=== PATIENT | female | born 1970 | race American Indian/Alaskan Native ===

== ENCOUNTER 2021-04-04 17:40 | Inpatient (IN) | payer OTHER ==
[2021-04-04] MEDS ORDERED: ALBUTEROL 2.5 MG/3 ML NEBU IH ONE ×2 (17:45→17:50)
[2021-04-04] MEDS ORDERED: IPRATROPIUM 0.02% NEBU 2.5 ML IH ONE ×2 (17:45→17:51)
--- NOTE | 2021-04-04 18:03 | Emergency Department Report ---
HPI - General Time Seen by Provider: 04/04/21 17:47 - HPI HPI: 50-year-old -[place] female presents to the emergency department via EMS from home with a complaint of a 2-day history of progressively worsening shortness of breath. She has a history of asthma, COPD (oxygen dependent), and hypertension. EMS found the patient to have a oxygen saturation of about 40%. She was placed on CPAP, given 10 mg of albuterol, 125 mg of Solu-Medrol, 2 g of magnesium, and an IM dose of epinephrine and her oxygen saturation came up to about 70%. Supposedly the patient has either 1 or 2 shots towards her COVID-19 vaccination. There are 2 people in her home at this time that are currently positive with COVID-19 infection. The patient is currently a poor historian secondary to her respiratory status and current condition. ED Past Medical Hx - Medications Home Medications: Home Medications Medication Instructions Recorded Confirmed Last Taken Type Tiotropium [Spiriva] 2 puff INHALATION DAILY 04/05/21 04/05/21 Unknown History predniSONE [Deltasone] 20 mg PO QDAY PRN 04/05/21 04/05/21 Unknown History ED Review of Systems ROS: Stated complaint: OTILIA Other details as noted in HPI Comment: Unobtainable due to pts medical conditions Respiratory: shortness of breath Physical Exam - Physical Exam Vital Signs: Vital Signs 04/04/21 17:58 Temperature 99.1 F Pulse Rate 136 H Respiratory 40 H Rate Blood Pressure 181/108 [Right] O2 Sat by Pulse 96 Oximetry Physical Exam: GENERAL: The patient is ill-appearing. HENT: Normocephalic. Atraumatic. Patient has moist mucous membranes. EYES: Pupils equal reactive to light bilaterally. NECK: Supple. Trachea is midline. CHEST/LUNGS: Coarse breath sounds throughout the chest. There is tachypnea, accessory muscle use, conversational dyspnea. There is respiratory distress noted. HEART/CARDIOVASCULAR: Regular. There is moderate tachycardia. There is no murmur. ABDOMEN: Abdomen is soft, nontender. Patient has normal bowel sounds. Morbidly obese habitus. SKIN: Skin is warm and dry. NEURO: The patient is very sleepy. She is arousable but goes right back to sleep if not continuously stimulated. MUSCULOSKELETAL: There is no tenderness or deformity. There is no limitation range of motion. ED Course Vital Signs 04/04/21 17:58 Temperature 99.1 F Pulse Rate 136 H Respiratory 40 H Rate Blood Pressure 181/108 [Right] O2 Sat by Pulse 96 Oximetry ED Medical Decision Making - Lab Data Result diagrams: 04/05/21 05:01 04/05/21 05:01 Lab Results 04/04/21 04/04/21 04/04/21 Range/Units 17:53 17:53 17:53 WBC 11.8 H (4.5-11.0) K/mm3 RBC 4.58 (3.65-5.03) M/mm3 Hgb 13.1 (10.1-14.3) gm/dl Hct 45.5 H (30.3-42.9) % MCV 99 H (79-97) fl MCH 29 (28-32) pg MCHC 29 L (30-34) % RDW 14.3 (13.2-15.2) % Plt Count 241 (140-440) K/mm3 [place] % (Auto) Slasher Tender Baso % (Auto) Slasher Tender Add Manual Diff Complete Total Counted 100 Seg Neuts % (Manual) 57.0 (40.0-70.0) % Lymphocytes % (Manual) 22.0 (13.4-35.0) % Monocytes % (Manual) 17.0 H (0.0-7.3) % Eosinophils % (Manual) 1.0 (0.0-4.3) % Basophils % (Manual) 3.0 H (0.0-1.8) % Nucleated RBC % Not Reportable Seg Neutrophils # Man 6.7 (1.8-7.7) K/mm3 Band Neutrophils # 0.0 K/mm3 Lymphocytes # (Manual) 2.6 (1.2-5.4) K/mm3 Abs React Lymphs (Man) 0.0 K/mm3 Monocytes # (Manual) 2.0 H (0.0-0.8) K/mm3 Eosinophils # (Manual) 0.1 (0.0-0.4) K/mm3 Basophils # (Manual) 0.4 H (0.0-0.1) K/mm3 Metamyelocytes # 0.0 K/mm3 Myelocytes # 0.0 K/mm3 Promyelocytes # 0.0 K/mm3 Blast Cells # 0.0 K/mm3 WBC Morphology Not Reportable Hypersegmented Neuts Not Reportable Hyposegmented Neuts Not Reportable Hypogranular Neuts Not Reportable Smudge Cells Not Reportable Toxic Granulation Not Reportable Toxic Vacuolation Not Reportable Dohle Bodies Not Reportable Pelger-Huet Anomaly Not Reportable Bronson Rods Not Reportable Platelet Estimate Not Reportable Clumped Platelets Not Reportable Plt Clumps, EDTA Not Reportable Large Platelets Not Reportable Giant Platelets Not Reportable Platelet Satelliting Not Reportable Plt Morphology Comment Not Reportable RBC Morphology Normal Dimorphic RBCs Not Reportable Polychromasia Not Reportable Hypochromasia Not Reportable Poikilocytosis Not Reportable Anisocytosis Not Reportable Microcytosis Not Reportable Macrocytosis Not Reportable Spherocytes Not Reportable Pappenheimer Bodies Not Reportable Sickle Cells Not Reportable Target Cells Not Reportable Tear Drop Cells Not Reportable Ovalocytes Not Reportable Helmet Cells Not Reportable Ayers-Pastura Bodies Not Reportable [place] Rings Not Reportable [place] Cells Not Reportable Bite Cells Not Reportable Crenated Cell Not Reportable Elliptocytes Not Reportable Acanthocytes (Spur) Not Reportable Rouleaux Not Reportable Hemoglobin C Crystals Not Reportable Schistocytes Not Reportable Malaria parasites Not Reportable Jesus Alberto Bodies Not Reportable Hem Pathologist Commnt No PT 15.0 H (12.2-14.9) Sec. INR 1.06 (0.87-1.13) ABG pH (7.350-7.450) pH Units ABG pCO2 mm Hg ABG pO2 (80.0-90.0) mm Hg ABG HCO3 (20.0-26.0) mmol/L ABG O2 Saturation (95.0-99.0) % ABG O2 Content (0.0-44) ABG Base Excess (-2.0-3.0) mmol/L ABG Hemoglobin (12.0-16.0) gm/dl ABG Carboxyhemoglobin (0.0-5.0) % ABG Methemoglobin (0.0-1.5) % Oxyhemoglobin (95.0-99.0) % FiO2 % Sodium 136 L (137-145) mmol/L Potassium 4.8 (3.6-5.0) mmol/L Chloride 87.0 L (98-107) mmol/L Carbon Dioxide 31 H (22-30) mmol/L Anion Gap 23 mmol/L BUN 20 H (7-17) mg/dL Creatinine 1.0 (0.6-1.2) mg/dL Estimated GFR 59 ml/min BUN/Creatinine Ratio 20 % Glucose 130 H (65-100) mg/dL Calcium 9.3 (8.4-10.2) mg/dL Magnesium 2.90 H (1.7-2.3) mg/dL Total Bilirubin 1.10 (0.1-1.2) mg/dL AST 43 H (5-40) units/L ALT 30 (7-56) units/L Alkaline Phosphatase 68 (35-129) units/L Troponin T < 0.010 (0.00-0.029) ng/mL NT-Pro-B Natriuret Pep 1911 H (0-450) pg/mL Total Protein 7.7 (6.3-8.2) g/dL Albumin 4.8 (3.9-5) g/dL Albumin/Globulin Ratio 1.7 % 04/04/21 04/04/21 Range/Units 18:00 Unknown WBC (4.5-11.0) K/mm3 RBC (3.65-5.03) M/mm3 Hgb (10.1-14.3) gm/dl Hct (30.3-42.9) % MCV (79-97) fl MCH (28-32) pg MCHC (30-34) % RDW (13.2-15.2) % Plt Count (140-440) K/mm3 [place] % (Auto) Baso % (Auto) Add Manual Diff Total Counted Seg Neuts % (Manual) (40.0-70.0) % Lymphocytes % (Manual) (13.4-35.0) % Monocytes % (Manual) (0.0-7.3) % Eosinophils % (Manual) (0.0-4.3) % Basophils % (Manual) (0.0-1.8) % Nucleated RBC % Seg Neutrophils # Man (1.8-7.7) K/mm3 Band Neutrophils # K/mm3 Lymphocytes # (Manual) (1.2-5.4) K/mm3 Abs React Lymphs (Man) K/mm3 Monocytes # (Manual) (0.0-0.8) K/mm3 Eosinophils # (Manual) (0.0-0.4) K/mm3 Basophils # (Manual) (0.0-0.1) K/mm3 Metamyelocytes # K/mm3 Myelocytes # K/mm3 Promyelocytes # K/mm3 Blast Cells # K/mm3 WBC Morphology Hypersegmented Neuts Hyposegmented Neuts Hypogranular Neuts Smudge Cells Toxic Granulation Toxic Vacuolation Dohle Bodies Pelger-Huet Anomaly Bronson Rods Platelet Estimate Clumped Platelets Plt Clumps, EDTA Large Platelets Giant Platelets Platelet Satelliting Plt Morphology Comment RBC Morphology Dimorphic RBCs Polychromasia Hypochromasia Poikilocytosis Anisocytosis Microcytosis Macrocytosis Spherocytes Pappenheimer Bodies Sickle Cells Target Cells Tear Drop Cells Ovalocytes Helmet Cells Ayers-Pastura Bodies [place] Rings [place] Cells Bite Cells Crenated Cell Elliptocytes Acanthocytes (Spur) Rouleaux Hemoglobin C Crystals Schistocytes Malaria parasites Jesus Alberto Bodies Hem Pathologist Commnt PT (12.2-14.9) Sec. INR (0.87-1.13) ABG pH 7.072 L* 7.267 L (7.350-7.450) pH Units ABG pCO2 144.3 86.8 mm Hg ABG pO2 163.4 H 125.0 H (80.0-90.0) mm Hg ABG HCO3 41.1 H 38.7 H (20.0-26.0) mmol/L ABG O2 Saturation 98.3 97.9 (95.0-99.0) % ABG O2 Content 18.5 17.1 (0.0-44) ABG Base Excess 6.0 H 8.6 H (-2.0-3.0) mmol/L ABG Hemoglobin 13.6 12.7 (12.0-16.0) gm/dl ABG Carboxyhemoglobin 3.1 2.4 (0.0-5.0) % ABG Methemoglobin 0.5 0.7 (0.0-1.5) % Oxyhemoglobin 94.8 L 94.9 L (95.0-99.0) % FiO2 100 80 % Sodium (137-145) mmol/L Potassium (3.6-5.0) mmol/L Chloride (98-107) mmol/L Carbon Dioxide (22-30) mmol/L Anion Gap mmol/L BUN (7-17) mg/dL Creatinine (0.6-1.2) mg/dL Estimated GFR ml/min BUN/Creatinine Ratio % Glucose (65-100) mg/dL Calcium (8.4-10.2) mg/dL Magnesium (1.7-2.3) mg/dL Total Bilirubin (0.1-1.2) mg/dL AST (5-40) units/L ALT (7-56) units/L Alkaline Phosphatase (35-129) units/L Troponin T (0.00-0.029) ng/mL NT-Pro-B Natriuret Pep (0-450) pg/mL Total Protein (6.3-8.2) g/dL Albumin (3.9-5) g/dL Albumin/Globulin Ratio % - EKG Data -: EKG Interpreted by Sc EKG shows normal: sinus rhythm, axis, intervals, QRS complexes, ST-T waves Rate: tachycardia (135 bpm) - EKG Data When compared to previous EKG there are: previous EKG unavailable Interpretation: other (Sinus tachycardia 135 bpm, normal axis, normal intervals. No ST elevation [place]) - Radiology Data Radiology results: report reviewed ABDOMEN 3 VIEW(S) INDICATION / CLINICAL INFORMATION: sob. COMPARISON: None available. FINDINGS: TUBES / LINES: None. BOWEL GAS PATTERN: No significant abnormality. FREE AIR / EXTRALUMINAL GAS: None seen. ADDITIONAL FINDINGS: On the included chest radiograph there are bilateral pulmonary opacities and the cardiac silhouette is enlarged. IMPRESSION: 1. Exam is limited due to patient body habitus. Accounting for this no radiographic evidence of acute abdomen. 2. All pulmonary opacities bilaterally could be due to pulmonary edema. - Medical Decision Making This patient presented to the emergency department in respiratory distress from home. Initially she had a pulse ox of about 44% on her normal home O2. She was up to about 75% on CPAP. She arrived to our emergency department at about 82% on the same CPAP. The patient was placed on the BiPAP and oxygen saturation went up into the mid 90s with an FiO2 of 100%. She had an ABG that showed severe hypercapnia. Changes were made to the BiPAP settings and a repeat ABG about 2 hours later showed the PCO2 had almost dropped by half and the patient appears much more awake and alert. Chest x-ray shows patchy infiltrates bilaterally that could be interstitial edema versus pneumonia. The patient does have exposure to 2 different individuals in her home that are positive for COVID-19. However the patient is also vaccinated against COVID-19 with both of her shots, but not yet a booster. With the chest x-ray finding, and a elevated proBNP of about 2000, the patient may have a CHF exacerbation. She was given a dose of Lasix to start diuresis. The patient will be admitted to the ICU and it will be presented to the overnight hospitalist. Critical Care Time: Yes Critical care time in (mins) excluding proc time.: 35 Critical care attestation.: If time is entered above; I have spent that time in minutes in the direct care of this critically ill patient, excluding procedure time. Critical care time was spent on this patient in doing her initial evaluation, multiple reevalu ations, ordering and interpretation of labs and imaging, BiPAP management and supplemental oxygen for hypoxia, IV Lasix for diuresis. Critical Care Time: 35 minutes ED Disposition Clinical Impression: Acute respiratory failure with hypoxia, Acute respiratory failure with hypercapnia, CHF exacerbation, COPD exacerbation, Suspected 2019 novel coronavirus infection Disposition: ADMITTED INPATIENT Is pt being admited?: Yes Condition: Serious Time of Disposition: 20:44
[2021-04-04 18:08] LABS: ABG HCO3 41.1 mmol/L (20.0-26.0); ABG Methemoglobin 0.5 % (0.0-1.5); ABG Oxygen Saturation 98.3 % (95.0-99.0); ABG PCO2 144.3 mm Hg; ABG PO2 163.4 mm Hg (80.0-90.0)
[2021-04-04 18:12] LABS: ABG PH 7.072 pH Units (7.350-7.450)
--- NOTE | 2021-04-04 18:38 | XRay Report ---
ABDOMEN 3 VIEW(S) INDICATION / CLINICAL INFORMATION: sob. COMPARISON: None available. FINDINGS: TUBES / LINES: None. BOWEL GAS PATTERN: No significant abnormality. FREE AIR / EXTRALUMINAL GAS: None seen. ADDITIONAL FINDINGS: On the included chest radiograph there are bilateral pulmonary opacities and the cardiac silhouette is enlarged. IMPRESSION: 1. Exam is limited due to patient body habitus. Accounting for this no radiographic evidence of acute abdomen. 2. All pulmonary opacities bilaterally could be due to pulmonary edema. Signer Name: Irving Minaya MD Signed: 04/04/2021 6:34 PM Workstation Name: [id number]
[2021-04-04 18:41] LABS: Mean Corpuscular HGB Conc 29 % (30-34); Mean Corpuscular Volume 99 fl (79-97); Platelet Count 241 K/mm3 (140-440); Red Blood Count 4.58 M/mm3 (3.65-5.03); Red Cell Distribution Width 14.3 % (13.2-15.2)
[2021-04-04 18:42] LABS: Hematocrit 45.5 % (30.3-42.9); Hemoglobin 13.1 gm/dl (10.1-14.3)
[2021-04-04 18:52] LABS: INR 1.06 (0.87-1.13)
[2021-04-04 19:09] LABS: Alanine Aminotransferase 30 units/L (7-56); Albumin 4.8 g/dL (3.9-5); BUN/Creatinine Ratio 20; Blood Urea Nitrogen 20 mg/dL (7-17); Calcium 9.3 mg/dL (8.4-10.2); Hemolysis Index 16
[2021-04-04] MEDS ORDERED: hydrALAZINE 20 MG/1 ML INJ IV ONE (19:09)
[2021-04-04] MEDS ORDERED: FUROSEMIDE 40 MG/4 ML INJ IV ONE (19:10)
[2021-04-04 19:36] LABS: RBC Morphology Normal; Total Cells Counted 100
[2021-04-04 20:42] LABS: ABG Base Excess 8.6 mmol/L (-2.0-3.0); ABG HCO3 38.7 mmol/L (20.0-26.0); ABG Methemoglobin 0.7 % (0.0-1.5); ABG Oxygen Saturation 97.9 % (95.0-99.0); ABG PCO2 86.8 mm Hg; ABG PH 7.267 pH Units (7.350-7.450)
[2021-04-04 20:56] LABS: C-Reactive Protein 7.9 mg/dL (0.00-1.30)
--- NOTE | 2021-04-04 21:52 | Emergency Department Report ---
Blank Doc - Documentation Documentation: Case was discussed with Dr. Garcia after blood gas had been reported. Patient w ill be admitted.
[2021-04-04] MEDS ORDERED: ACETAMINOPHEN 325 MG TAB PO PRN (21:56)
[2021-04-04] MEDS ORDERED: oxyCODONE /ACETAMINOPHEN 5-325MG TAB PO PRN (21:56)
[2021-04-04] MEDS ORDERED: ONDANSETRON 4 MG/2 ML INJ IV PRN (21:56)
--- NOTE | 2021-04-04 22:09 | History and Physical Report ---
History of Present Illness Date of examination: 04/04/21 Date of admission: 04/04/21 Chief complaint: Acute respiratory failure Shortness of breath History of present illness: 50-year female with history of asthma, COPD and hypertension was brought to the emergency room because of a 2-day history of progressively worsening shortness of breath. EMS found the patient to have a oxygen saturation of about 40%. She was placed on CPAP, given 10 mg of albuterol, 125 mg of Solu-Medrol, 2 g of magnesium, and an IM dose of epinephrine and her oxygen saturation came up to about 70%. Supposedly the patient has either 1 or 2 shots towards her COVID-19 vaccination. There are 2 people in her home at this time that are currently positive with COVID-19 infection. The patient is currently a poor historian secondary to her respiratory status and current condition. In the emergency room patient is found to have acute respiratory failure, patient blood gas showed pH 7.072, PCO2 144.3 PO2 163.4 bicarb 41.1 subsequently patient was put on BiPAP. Repeat ABG showed pH 7.267. PCO2 86.8, PO2 125.0 bicarb 38.7 O2 sat 97.9, chest x-ray shows pulmonary edema. Med rec is not available Past History Past Medical History: COPD, hypertension, other (Asthma) Medications and Allergies Allergies Allergy/AdvReac Type Severity Reaction Status Date / Time No Known Allergies Allergy Verified 04/04/21 18:13 Review of Systems All systems: negative Constitutional: lethargy Cardiovascular: orthopnea, shortness of breath, dyspnea on exertion Respiratory: shortness of breath, dyspnea on exertion, wheezing Exam - Constitutional Vitals: Temp Pulse Resp BP Pulse Ox 97.7 F 74 24 131/68 95 04/04/21 19:16 04/04/21 21:30 04/04/21 21:30 04/04/21 21:30 04/04/21 21:30 General appearance: Present: mild distress - EENT Eyes: Present: PERRL ENT: hearing intact, clear oral mucosa - Neck Neck: Present: supple, normal ROM - Respiratory Respiratory effort: normal Respiratory: bilateral: diminished, rales, wheezing - Cardiovascular Heart Sounds: Present: S1 & S2. Absent: rub, click - Extremities Extremities: pulses symmetrical Extremity abnormal: edema Peripheral Pulses: within normal limits - Abdominal General gastrointestinal: Present: soft, non-tender, non-distended, normal bowel sounds Female genitourinary: Present: normal - Integumentary Integumentary: Present: clear, warm, dry - Musculoskeletal Musculoskeletal: gait normal, strength equal bilaterally - Psychiatric Psychiatric: appropriate mood/affect, intact judgment & insight - Neurologic Neurologic: CNII-XII intact, moves all extremities HEART Score - HEART Score Troponin: Troponin T < 0.010 ng/mL (0.00-0.029) 04/04/21 17:53 Results - Labs CBC & Chem 7: 04/04/21 17:53 04/04/21 17:53 Labs: Laboratory Last Values WBC 11.8 K/mm3 (4.5-11.0) H 04/04/21 17:53 RBC 4.58 M/mm3 (3.65-5.03) 04/04/21 17:53 Hgb 13.1 gm/dl (10.1-14.3) 04/04/21 17:53 Hct 45.5 % (30.3-42.9) H 04/04/21 17:53 MCV 99 fl (79-97) H 04/04/21 17:53 MCH 29 pg (28-32) 04/04/21 17:53 MCHC 29 % (30-34) L 04/04/21 17:53 RDW 14.3 % (13.2-15.2) 04/04/21 17:53 Plt Count 241 K/mm3 (140-440) 04/04/21 17:53 [place] % (Auto) Health Program Manager 04/04/21 17:53 Baso % (Auto) Health Program Manager 04/04/21 17:53 Add Manual Diff Complete 04/04/21 17:53 Total Counted 100 04/04/21 17:53 Seg Neuts % (Manual) 57.0 % (40.0-70.0) 04/04/21 17:53 Lymphocytes % (Manual) 22.0 % (13.4-35.0) 04/04/21 17:53 Monocytes % (Manual) 17.0 % (0.0-7.3) H 04/04/21 17:53 Eosinophils % (Manual) 1.0 % (0.0-4.3) 04/04/21 17:53 Basophils % (Manual) 3.0 % (0.0-1.8) H 04/04/21 17:53 Nucleated RBC % Not Reportable 04/04/21 17:53 Seg Neutrophils # Man 6.7 K/mm3 (1.8-7.7) 04/04/21 17:53 Band Neutrophils # 0.0 K/mm3 04/04/21 17:53 Lymphocytes # (Manual) 2.6 K/mm3 (1.2-5.4) 04/04/21 17:53 Abs React Lymphs (Man) 0.0 K/mm3 04/04/21 17:53 Monocytes # (Manual) 2.0 K/mm3 (0.0-0.8) H 04/04/21 17:53 Eosinophils # (Manual) 0.1 K/mm3 (0.0-0.4) 04/04/21 17:53 Basophils # (Manual) 0.4 K/mm3 (0.0-0.1) H 04/04/21 17:53 Metamyelocytes # 0.0 K/mm3 04/04/21 17:53 Myelocytes # 0.0 K/mm3 04/04/21 17:53 Promyelocytes # 0.0 K/mm3 04/04/21 17:53 Blast Cells # 0.0 K/mm3 04/04/21 17:53 WBC Morphology Not Reportable 04/04/21 17:53 Hypersegmented Neuts Not Reportable 04/04/21 17:53 Hyposegmented Neuts Not Reportable 04/04/21 17:53 Hypogranular Neuts Not Reportable 04/04/21 17:53 Smudge Cells Not Reportable 04/04/21 17:53 Toxic Granulation Not Reportable 04/04/21 17:53 Toxic Vacuolation Not Reportable 04/04/21 17:53 Dohle Bodies Not Reportable 04/04/21 17:53 Pelger-Huet Anomaly Not Reportable 04/04/21 17:53 Bronson Rods Not Reportable 04/04/21 17:53 Platelet Estimate Not Reportable 04/04/21 17:53 Clumped Platelets Not Reportable 04/04/21 17:53 Plt Clumps, EDTA Not Reportable 04/04/21 17:53 Large Platelets Not Reportable 04/04/21 17:53 Giant Platelets Not Reportable 04/04/21 17:53 Platelet Satelliting Not Reportable 04/04/21 17:53 Plt Morphology Comment Not Reportable 04/04/21 17:53 RBC Morphology Normal 04/04/21 17:53 Dimorphic RBCs Not Reportable 04/04/21 17:53 Polychromasia Not Reportable 04/04/21 17:53 Hypochromasia Not Reportable 04/04/21 17:53 Poikilocytosis Not Reportable 04/04/21 17:53 Anisocytosis Not Reportable 04/04/21 17:53 Microcytosis Not Reportable 04/04/21 17:53 Macrocytosis Not Reportable 04/04/21 17:53 Spherocytes Not Reportable 04/04/21 17:53 Pappenheimer Bodies Not Reportable 04/04/21 17:53 Sickle Cells Not Reportable 04/04/21 17:53 Target Cells Not Reportable 04/04/21 17:53 Tear Drop Cells Not Reportable 04/04/21 17:53 Ovalocytes Not Reportable 04/04/21 17:53 Helmet Cells Not Reportable 04/04/21 17:53 A[place] Bodies Not Reportable 04/04/21 17:53 [place] Rings Not Reportable 04/04/21 17:53 [place] Cells Not Reportable 04/04/21 17:53 Bite Cells Not Reportable 04/04/21 17:53 Crenated Cell Not Reportable 04/04/21 17:53 Elliptocytes Not Reportable 04/04/21 17:53 Acanthocytes (Spur) Not Reportable 04/04/21 17:53 Rouleaux Not Reportable 04/04/21 17:53 Hemoglobin C Crystals Not Reportable 04/04/21 17:53 Schistocytes Not Reportable 04/04/21 17:53 Malaria parasites Not Reportable 04/04/21 17:53 Jesus Alberto Bodies Not Reportable 04/04/21 17:53 Hem Pathologist Commnt No 04/04/21 17:53 PT 15.0 Sec. (12.2-14.9) H 04/04/21 17:53 INR 1.06 (0.87-1.13) 04/04/21 17:53 D-Dimer 283.80 ng/mlDDU (0-234) H 04/04/21 20:30 ABG pH 7.267 pH Units (7.350-7.450) L 04/04/21 Unknown ABG pCO2 86.8 mm Hg 04/04/21 Unknown ABG pO2 125.0 mm Hg (80.0-90.0) H 04/04/21 Unknown ABG HCO3 38.7 mmol/L (20.0-26.0) H 04/04/21 Unknown ABG O2 Saturation 97.9 % (95.0-99.0) 04/04/21 Unknown ABG O2 Content 17.1 (0.0-44) 04/04/21 Unknown ABG Base Excess 8.6 mmol/L (-2.0-3.0) H 04/04/21 Unknown ABG Hemoglobin 12.7 gm/dl (12.0-16.0) 04/04/21 Unknown ABG Carboxyhemoglobin 2.4 % (0.0-5.0) 04/04/21 Unknown ABG Methemoglobin 0.7 % (0.0-1.5) 04/04/21 Unknown Oxyhemoglobin 94.9 % (95.0-99.0) L 04/04/21 Unknown FiO2 80 % 04/04/21 Unknown Sodium 136 mmol/L (137-145) L 04/04/21 17:53 Potassium 4.8 mmol/L (3.6-5.0) 04/04/21 17:53 Chloride 87.0 mmol/L (98-107) L 04/04/21 17:53 Carbon Dioxide 31 mmol/L (22-30) H 04/04/21 17:53 Anion Gap 23 mmol/L 04/04/21 17:53 BUN 20 mg/dL (7-17) H 04/04/21 17:53 Creatinine 1.0 mg/dL (0.6-1.2) 04/04/21 17:53 Estimated GFR 59 ml/min 04/04/21 17:53 BUN/Creatinine Ratio 20 % 04/04/21 17:53 Glucose 130 mg/dL (65-100) H 04/04/21 17:53 Calcium 9.3 mg/dL (8.4-10.2) 04/04/21 17:53 Magnesium 2.90 mg/dL (1.7-2.3) H 04/04/21 17:53 Ferritin 236.2 ng/mL (10.0-200.0) H 04/04/21 20:30 Total Bilirubin 1.10 mg/dL (0.1-1.2) 04/04/21 17:53 AST 43 units/L (5-40) H 04/04/21 17:53 ALT 30 units/L (7-56) 04/04/21 17:53 Alkaline Phosphatase 68 units/L (35-129) 04/04/21 17:53 Lactate Dehydrogenase 434 units/L (91-180) H 04/04/21 20:30 Troponin T < 0.010 ng/mL (0.00-0.029) 04/04/21 17:53 C-Reactive Protein 7.90 mg/dL (0.00-1.30) H 04/04/21 20:30 NT-Pro-B Natriuret Pep 1911 pg/mL (0-450) H 04/04/21 17:53 Total Protein 7.7 g/dL (6.3-8.2) 04/04/21 17:53 Albumin 4.8 g/dL (3.9-5) 04/04/21 17:53 Albumin/Globulin Ratio 1.7 % 04/04/21 17:53 - Imaging and Cardiology Chest x-ray: report reviewed Abdominal x-ray: report reviewed Assessment and Plan VTE prophylaxis?: Chemical Plan of care discussed with patient/family: Yes - Patient Problems (1) Acute respiratory failure with hypercapnia Current Visit: Yes Status: Acute Plan to address problem: Admit the patient to the IMCU. Patient is on BiPAP. DuoNeb by nebulizer every 4 hours. Albuterol via nebulizer every 4 hours as needed. Solu-Medrol 40 mg IV every 6 hours. Rocephin 2 g IV daily. Zithromax 250 milligrams p.o. daily. We will send the Covid PCR. Follow Covid inflammatory marker. Blood and sputum culture. Will consult pulmonary Dr. Azar for evaluation (2) Acute respiratory failure with hypoxia Current Visit: Yes Status: Acute Plan to address problem: Patient is on BiPAP. DuoNeb by nebulizer every 4 hours. Albuterol via nebulizer every 4 hours as needed. Solu-Medrol 40 mg IV every 6 hours. Rocephin 2 g IV daily. Zithromax 250 milligrams p.o. daily. We will send the Covid PCR. Follow Covid inflammatory marker. Blood and sputum culture. Will consult pulmonary Dr. Azar for evaluation (3) CHF exacerbation Current Visit: Yes Status: Acute Plan to address problem: Lasix 40 mg IV daily. Fluid restriction. Maintain input output chart. Daily weight. Echocardiogram. Cardiology evaluation (4) COPD exacerbation Current Visit: Yes Status: Acute Plan to address problem: Patient is on BiPAP. DuoNeb by nebulizer every 4 hours. Albuterol via nebulizer every 4 hours as needed. Solu-Medrol 40 mg IV every 6 hours. Will consult pulmonary Dr. Azar for evaluation (5) Suspected 2019 novel coronavirus infection Current Visit: Yes Status: Acute Plan to address problem: Patient is on BiPAP. DuoNeb by nebulizer every 4 hours. Albuterol via nebulizer every 4 hours as needed. Solu-Medrol 40 mg IV every 6 hours. Rocephin 2 g IV daily. Zithromax 250 milligrams p.o. daily. We will send the Covid PCR. Follow Covid inflammatory marker. Blood and sputum culture. Will consult pulmonary Dr. Azar for evaluation (6) Hypertension Current Visit: Yes Status: Acute Plan to address problem: Hydralazine 10 mg IV every 6 hours as needed. We continue the home medication (7) DVT prophylaxis Current Visit: Yes Status: Acute Plan to address problem: Heparin 5000 units subcu every 8 hours for DVT prophylaxis. Pepcid 20 mg p.o. twice daily for GI prophylaxis. Patient is a full code
[2021-04-04] MEDS ORDERED: hydrALAZINE 20 MG/1 ML INJ IV PRN (22:13)
[2021-04-04] MEDS: HEPARIN 5,000 UNIT/1 ML VIAL SUB-Q SCH (22:51)
[2021-04-04] MEDS: FAMOTIDINE 20 MG TAB PO SCH (22:52)
[2021-04-04] MEDS: cefTRIAXone/NS 2 GM/100 ML 2 GM/100 ML BAG IV SCH (23:00)
[2021-04-04] MEDS: HYDROmorphone 1 MG/1 ML INJ IV PRN (23:35)
[2021-04-05] MEDS: methylPREDNISolone Sod Succinate 40 MG/1 ML INJ IV SCH ×4 (00:08→18:17)
[2021-04-05] MEDS: IPRATROPIUM/ALBUTEROL SULFATE 3 ML AMPUL.NEB IH SCH ×4 (02:21→19:46)
[2021-04-05] MEDS: HEPARIN 5,000 UNIT/1 ML VIAL SUB-Q SCH ×3 (05:18→22:29)
[2021-04-05 05:29] LABS: Hematocrit 38.2 % (30.3-42.9); Hemoglobin 11.9 gm/dl (10.1-14.3); Mean Corpuscular HGB Conc 31 % (30-34); Mean Corpuscular Volume 96 fl (79-97); Platelet Count 190 K/mm3 (140-440); Red Blood Count 3.97 M/mm3 (3.65-5.03); Red Cell Distribution Width 14.2 % (13.2-15.2)
[2021-04-05 05:45] LABS: Blood Urea Nitrogen 23 mg/dL (7-17); Calcium 8.9 mg/dL (8.4-10.2); Hemolysis Index 0
[2021-04-05 05:49] LABS: BUN/Creatinine Ratio 33
[2021-04-05 07:37] LABS: Band Neutrophils # (Manual) 0.1 K/mm3; Total Cells Counted 100
[2021-04-05 07:38] LABS: Anisocytosis 1+; Platelet Estimate Consistent w Auto
[2021-04-05] MEDS: HYDROmorphone 1 MG/1 ML INJ IV PRN ×2 (08:40→20:19)
[2021-04-05] MEDS: cefTRIAXone/NS 2 GM/100 ML 2 GM/100 ML BAG IV SCH (09:52)
[2021-04-05] MEDS: FUROSEMIDE 40 MG/4 ML INJ IV SCH (09:52)
[2021-04-05] MEDS ORDERED: AZITHROMYCIN 250 MG TAB PO SCH ×2 (10:00→22:00)
[2021-04-05] MEDS: FAMOTIDINE 20 MG TAB PO SCH ×2 (10:16→22:29)
--- NOTE | 2021-04-05 10:35 | Consultation ---
History of Present Illness Consult date: 04/05/21 Reason for consult: asthma, hypoxemia History of present illness: 50 y/o morbidly obese female admitted with acute hypercapnic hypoxic respiratory failure. Currently on Bipap in the unit but under IMCU status. CXR shows cardiomegaly with what appears to be pulmonary edema. BNP is elevated. inital pH was 7. pH now is 7.34. Awake and alert, as stated above on bipap. Past History Past Medical History: COPD, hypertension, other (Asthma) Medications and Allergies Allergies Allergy/AdvReac Type Severity Reaction Status Date / Time acetaminophen [From Percocet] Allergy Itching Verified 04/05/21 01:43 oxycodone [From Percocet] Allergy Itching Verified 04/05/21 01:43 Home Medications Medication Instructions Recorded Confirmed Last Taken Type Tiotropium [Spiriva] 2 puff INHALATION DAILY 04/05/21 04/05/21 Unknown History predniSONE [Deltasone] 20 mg PO QDAY PRN 04/05/21 04/05/21 Unknown History Active Meds: Active Medications Acetaminophen (Acetaminophen 325 Mg Tab) 650 mg PO Q4H PRN PRN Reason: Pain MILD(1-3)/Fever >100.5/MONAE Albuterol (Albuterol 2.5 Mg/3 Ml Nebu) 2.5 mg IH Q4HRT PRN PRN Reason: Shortness Of Breath Albuterol/Ipratropium (Ipratropium/Albuterol Sulfate 3 Ml Ampul.Neb) 1 ampul IH Q6HRT [facility] Last Admin: 04/05/21 08:39 Dose: 1 ampul Documented by: Azithromycin (Azithromycin 250 Mg Tab) 250 mg PO 2200 [facility]; Protocol Budesonide (Budesonide 0.5 Mg/2 Ml Nebu) 0.5 mg IH Q12HRT [facility] Famotidine (Famotidine 20 Mg Tab) 20 mg PO BID [facility] Last Admin: 04/05/21 10:16 Dose: Not Given Documented by: Furosemide (Furosemide 40 Mg/4 Ml Inj) 40 mg IV QDAY [facility] Last Admin: 04/05/21 09:52 Dose: 40 mg Documented by: Heparin Sodium (Porcine) (Heparin 5,000 Unit/1 Ml Vial) 5,000 unit SUB-Q Q8HR [facility] Last Admin: 04/05/21 05:18 Dose: 5,000 unit Documented by: Hydralazine HCl (Hydralazine 20 Mg/1 Ml Inj) 10 mg IV Q6H PRN PRN Reason: Blood Pressure Last Admin: 04/04/21 22:50 Dose: 10 mg Documented by: Hydromorphone HCl (Hydromorphone 1 Mg/1 Ml Inj) 0.5 mg IV Q3H PRN PRN Reason: Pain , Severe (7-10) Last Admin: 04/05/21 08:40 Dose: 0.5 mg Documented by: Ceftriaxone Sodium (Rocephin/Ns 2 Gm/100 Ml) 2 gm in 100 mls @ 200 mls/hr IV Q24HR [facility]; Protocol Last Admin: 04/05/21 09:52 Dose: 200 mls/hr Documented by: Methylprednisolone Sodium Succinate (Methylprednisolone Sod Succinate 40 Mg/1 Ml Inj) 40 mg IV Q6HR [facility] Last Admin: 04/05/21 05:18 Dose: 40 mg Documented by: Montelukast Sodium (Montelukast 10 Mg Tab) 10 mg PO QHS [facility] Ondansetron HCl (Ondansetron 4 Mg/2 Ml Inj) 4 mg IV Q8H PRN PRN Reason: Nausea And Vomiting Oxycodone/Acetaminophen (Oxycodone /Acetaminophen 5-325mg Tab) 1 tab PO Q6H PRN PRN Reason: Pain, Moderate (4-6) Sodium Chloride (Sodium Chloride 0.9% 10 Ml Flush Syringe) 10 ml IV BID [facility] Last Admin: 04/05/21 09:53 Dose: 10 ml Documented by: Sodium Chloride (Sodium Chloride 0.9% 10 Ml Flush Syringe) 10 ml IV PRN PRN PRN Reason: LINE FLUSH Review of Systems All systems: negative Physical Examination Vital signs: Vital Signs Pulse Resp BP Pulse Ox 128 H 35 H 219/124 98 04/04/21 17:50 04/04/21 17:50 04/04/21 17:50 04/04/21 17:50 General appearance: no acute distress, alert ENT: other (full face mask bipap) Neck: supple Effort: normal Ascultation: Bilateral: diminished breath sounds Percussion: Bilateral: not dull Cardiovascular: regular rate and rhythm Gastrointestinal: normoactive bowel sounds Integumentary: normal Extremities: edema Results - Laboratory Findings CBC and BMP: 04/05/21 05:01 04/05/21 05:01 ABG ABG pH 7.342 (7.320-7.450) 04/05/21 08:00 POC ABG pCO2 76.0 mmHg (32.0-48.0) H 04/05/21 08:00 ABG pCO2 86.8 mm Hg 04/04/21 Unknown POC ABG pO2 66.9 mmHg (83-108) L 04/05/21 08:00 ABG pO2 125.0 mm Hg (80.0-90.0) H 04/04/21 Unknown POC ABG HCO3 40.3 04/05/21 08:00 ABG O2 Saturation 93.5 (0-100) 04/05/21 08:00 PT/INR, D-dimer PT 15.0 Sec. (12.2-14.9) H 04/04/21 17:53 INR 1.06 (0.87-1.13) 04/04/21 17:53 D-Dimer 283.80 ng/mlDDU (0-234) H 04/04/21 20:30 Abnormal lab findings: Abnormal Labs 04/04/21 04/04/21 04/04/21 17:53 17:53 17:53 WBC 11.8 H Hct 45.5 H MCV 99 H MCHC 29 L Seg Neuts % (Manual) Lymphocytes % (Manual) Monocytes % (Manual) 17.0 H Basophils % (Manual) 3.0 H Seg Neutrophils # Man Lymphocytes # (Manual) Monocytes # (Manual) 2.0 H Basophils # (Manual) 0.4 H PT 15.0 H D-Dimer ABG pH POC ABG pCO2 POC ABG pO2 ABG pO2 ABG HCO3 ABG Base Excess ABG Oxyhemoglobin ABG Sodium ABG Chloride ABG Glucose Oxyhemoglobin Sodium 136 L Chloride 87.0 L Carbon Dioxide 31 H BUN 20 H Glucose 130 H Magnesium 2.90 H Ferritin AST 43 H Lactate Dehydrogenase C-Reactive Protein NT-Pro-B Natriuret Pep 1911 H Arterial Blood Glucose 04/04/21 04/04/21 04/04/21 18:00 20:30 20:30 WBC Hct MCV MCHC Seg Neuts % (Manual) Lymphocytes % (Manual) Monocytes % (Manual) Basophils % (Manual) Seg Neutrophils # Man Lymphocytes # (Manual) Monocytes # (Manual) Basophils # (Manual) PT D-Dimer 283.80 H ABG pH 7.072 L* POC ABG pCO2 POC ABG pO2 ABG pO2 163.4 H ABG HCO3 41.1 H ABG Base Excess 6.0 H ABG Oxyhemoglobin ABG Sodium ABG Chloride ABG Glucose Oxyhemoglobin 94.8 L Sodium Chloride Carbon Dioxide BUN Glucose Magnesium Ferritin 236.2 H AST Lactate Dehydrogenase C-Reactive Protein NT-Pro-B Natriuret Pep Arterial Blood Glucose 04/04/21 04/04/21 04/05/21 20:30 Unknown 05:01 WBC Hct MCV MCHC Seg Neuts % (Manual) 94.0 H Lymphocytes % (Manual) 1.0 L Monocytes % (Manual) Basophils % (Manual) Seg Neutrophils # Man 8.7 H Lymphocytes # (Manual) 0.1 L Monocytes # (Manual) Basophils # (Manual) PT D-Dimer ABG pH 7.267 L POC ABG pCO2 POC ABG pO2 ABG pO2 125.0 H ABG HCO3 38.7 H ABG Base Excess 8.6 H ABG Oxyhemoglobin ABG Sodium ABG Chloride ABG Glucose Oxyhemoglobin 94.9 L Sodium Chloride Carbon Dioxide BUN Glucose Magnesium Ferritin AST Lactate Dehydrogenase 434 H C-Reactive Protein 7.90 H NT-Pro-B Natriuret Pep Arterial Blood Glucose 04/05/21 04/05/21 05:01 08:00 WBC Hct MCV MCHC Seg Neuts % (Manual) Lymphocytes % (Manual) Monocytes % (Manual) Basophils % (Manual) Seg Neutrophils # Man Lymphocytes # (Manual) Monocytes # (Manual) Basophils # (Manual) PT D-Dimer ABG pH POC ABG pCO2 76.0 H POC ABG pO2 66.9 L ABG pO2 ABG HCO3 ABG Base Excess ABG Oxyhemoglobin 92.2 L ABG Sodium 134.3 L ABG Chloride 91.0 L ABG Glucose 156 H Oxyhemoglobin Sodium Chloride 91.5 L Carbon Dioxide 35 H BUN 23 H Glucose 178 H Magnesium Ferritin AST Lactate Dehydrogenase C-Reactive Protein NT-Pro-B Natriuret Pep Arterial Blood Glucose 156 H - Diagnostic Findings Chest x-ray: image reviewed (cardiomegaly with what appears to be pulmonary edema) Assessment and Plan 50 y/o obese female with some form of obstructive lung disease admitted with acute hypoxic hypercapnic respiratory failure. 1. Wean Bipap as tolerated 2. Agree with steroids at current dosing 3. Added BID pulmicort 4. Agree with diuresis. 5. Needs echo 6. Will continue to follow.
--- NOTE | 2021-04-05 12:33 | Consultation ---
History of Present Illness - Reason for Consult Consult date: 04/05/21 COVID PUI Requesting physician: VASU SEPULVEDA - History of Present Illness The patient is a 50-year-old female with morbid obesity, obesity hypoventilation syndrome, asthma, hypertension was admitted with acute hypercapnic respiratory failure. She was admitted as a COVID-19 PUI. Review of Systems: reviewed in the chart, unable to obtain, minimize risk of transmission Past History Past Medical History: COPD, hypertension, other (Asthma) Medications and Allergies Allergies Allergy/AdvReac Type Severity Reaction Status Date / Time acetaminophen [From Percocet] Allergy Itching Verified 04/05/21 01:43 oxycodone [From Percocet] Allergy Itching Verified 04/05/21 01:43 Home Medications Medication Instructions Recorded Confirmed Last Taken Type Tiotropium [Spiriva] 2 puff INHALATION DAILY 04/05/21 04/05/21 Unknown History predniSONE [Deltasone] 20 mg PO QDAY PRN 04/05/21 04/05/21 Unknown History Active Meds: Active Medications Acetaminophen (Acetaminophen 325 Mg Tab) 650 mg PO Q4H PRN PRN Reason: Pain MILD(1-3)/Fever >100.5/MONAE Albuterol (Albuterol 2.5 Mg/3 Ml Nebu) 2.5 mg IH Q4HRT PRN PRN Reason: Shortness Of Breath Albuterol/Ipratropium (Ipratropium/Albuterol Sulfate 3 Ml Ampul.Neb) 1 ampul IH Q6HRT [facility] Last Admin: 04/05/21 08:39 Dose: 1 ampul Documented by: Azithromycin (Azithromycin 250 Mg Tab) 250 mg PO 2200 [facility]; Protocol Budesonide (Budesonide 0.5 Mg/2 Ml Nebu) 0.5 mg IH Q12HRT [facility] Famotidine (Famotidine 20 Mg Tab) 20 mg PO BID [facility] Last Admin: 04/05/21 10:16 Dose: Not Given Documented by: Furosemide (Furosemide 40 Mg/4 Ml Inj) 40 mg IV QDAY [facility] Last Admin: 04/05/21 09:52 Dose: 40 mg Documented by: Heparin Sodium (Porcine) (Heparin 5,000 Unit/1 Ml Vial) 5,000 unit SUB-Q Q8HR [facility] Last Admin: 04/05/21 05:18 Dose: 5,000 unit Documented by: Hydralazine HCl (Hydralazine 20 Mg/1 Ml Inj) 10 mg IV Q6H PRN PRN Reason: Blood Pressure Last Admin: 04/04/21 22:50 Dose: 10 mg Documented by: Hydromorphone HCl (Hydromorphone 1 Mg/1 Ml Inj) 0.5 mg IV Q3H PRN PRN Reason: Pain , Severe (7-10) Last Admin: 04/05/21 08:40 Dose: 0.5 mg Documented by: Ceftriaxone Sodium (Rocephin/Ns 2 Gm/100 Ml) 2 gm in 100 mls @ 200 mls/hr IV Q24HR [facility]; Protocol Last Admin: 04/05/21 09:52 Dose: 200 mls/hr Documented by: Methylprednisolone Sodium Succinate (Methylprednisolone Sod Succinate 40 Mg/1 Ml Inj) 40 mg IV Q6HR [facility] Last Admin: 04/05/21 05:18 Dose: 40 mg Documented by: Montelukast Sodium (Montelukast 10 Mg Tab) 10 mg PO QHS [facility] Ondansetron HCl (Ondansetron 4 Mg/2 Ml Inj) 4 mg IV Q8H PRN PRN Reason: Nausea And Vomiting Oxycodone/Acetaminophen (Oxycodone /Acetaminophen 5-325mg Tab) 1 tab PO Q6H PRN PRN Reason: Pain, Moderate (4-6) Sodium Chloride (Sodium Chloride 0.9% 10 Ml Flush Syringe) 10 ml IV BID [facility] Last Admin: 04/05/21 09:53 Dose: 10 ml Documented by: Sodium Chloride (Sodium Chloride 0.9% 10 Ml Flush Syringe) 10 ml IV PRN PRN PRN Reason: LINE FLUSH Physical Examination - Physical Exam Narrative exam: Physical Exam (reviewed in chart to minimize risk of transmission) Constitutional: deferred Head, Ears, Nose: deferred Eyes: deferred Neck: deferred Oral: deferred Cardiovascular: deferred Respiratory: deferred GI: deferred Musculoskeletal: deferred Skin: deferred Hem/Lymphatic: deferred Psych: deferred Neurological: deferred - Constitutional Vitals: Vital Signs Temp Pulse Resp BP Pulse Ox 98 F 75 21 120/78 95 04/05/21 04:49 04/05/21 12:10 04/05/21 12:10 04/05/21 12:10 04/05/21 12:10 Temperature -Last 24 Hours Temperature 98 F Temperature 97.6 F Temperature 97.7 F Temperature 99.1 F Results - Labs CBC & Chem 7: 04/05/21 05:01 04/05/21 05:01 Labs: Abnormal lab results 04/04/21 04/04/21 04/04/21 Range/Units 17:53 17:53 17:53 WBC 11.8 H (4.5-11.0) K/mm3 Hct 45.5 H (30.3-42.9) % MCV 99 H (79-97) fl MCHC 29 L (30-34) % Seg Neuts % (Manual) (40.0-70.0) % Lymphocytes % (Manual) (13.4-35.0) % Monocytes % (Manual) 17.0 H (0.0-7.3) % Basophils % (Manual) 3.0 H (0.0-1.8) % Seg Neutrophils # Man (1.8-7.7) K/mm3 Lymphocytes # (Manual) (1.2-5.4) K/mm3 Monocytes # (Manual) 2.0 H (0.0-0.8) K/mm3 Basophils # (Manual) 0.4 H (0.0-0.1) K/mm3 PT 15.0 H (12.2-14.9) Sec. D-Dimer (0-234) ng/mlDDU ABG pH (7.350-7.450) pH Units POC ABG pCO2 (32.0-48.0) mmHg POC ABG pO2 (83-108) mmHg ABG pO2 (80.0-90.0) mm Hg ABG HCO3 (20.0-26.0) mmol/L ABG Base Excess (-2.0-3.0) mmol/L ABG Oxyhemoglobin (94-98) ABG Sodium (136.0-145.0) mmol/L ABG Chloride (98-107) mmol/L ABG Glucose (65-95) mg/dL Oxyhemoglobin (95.0-99.0) % Sodium 136 L (137-145) mmol/L Chloride 87.0 L (98-107) mmol/L Carbon Dioxide 31 H (22-30) mmol/L BUN 20 H (7-17) mg/dL Glucose 130 H (65-100) mg/dL Magnesium 2.90 H (1.7-2.3) mg/dL Ferritin (10.0-200.0) ng/mL AST 43 H (5-40) units/L Lactate Dehydrogenase (91-180) units/L C-Reactive Protein (0.00-1.30) mg/dL NT-Pro-B Natriuret Pep 1911 H (0-450) pg/mL Arterial Blood Glucose (65-95) mg/dL 04/04/21 04/04/21 04/04/21 Range/Units 18:00 20:30 20:30 WBC (4.5-11.0) K/mm3 Hct (30.3-42.9) % MCV (79-97) fl MCHC (30-34) % Seg Neuts % (Manual) (40.0-70.0) % Lymphocytes % (Manual) (13.4-35.0) % Monocytes % (Manual) (0.0-7.3) % Basophils % (Manual) (0.0-1.8) % Seg Neutrophils # Man (1.8-7.7) K/mm3 Lymphocytes # (Manual) (1.2-5.4) K/mm3 Monocytes # (Manual) (0.0-0.8) K/mm3 Basophils # (Manual) (0.0-0.1) K/mm3 PT (12.2-14.9) Sec. D-Dimer 283.80 H (0-234) ng/mlDDU ABG pH 7.072 L* (7.350-7.450) pH Units POC ABG pCO2 (32.0-48.0) mmHg POC ABG pO2 (83-108) mmHg ABG pO2 163.4 H (80.0-90.0) mm Hg ABG HCO3 41.1 H (20.0-26.0) mmol/L ABG Base Excess 6.0 H (-2.0-3.0) mmol/L ABG Oxyhemoglobin (94-98) ABG Sodium (136.0-145.0) mmol/L ABG Chloride (98-107) mmol/L ABG Glucose (65-95) mg/dL Oxyhemoglobin 94.8 L (95.0-99.0) % Sodium (137-145) mmol/L Chloride (98-107) mmol/L Carbon Dioxide (22-30) mmol/L BUN (7-17) mg/dL Glucose (65-100) mg/dL Magnesium (1.7-2.3) mg/dL Ferritin 236.2 H (10.0-200.0) ng/mL AST (5-40) units/L Lactate Dehydrogenase (91-180) units/L C-Reactive Protein (0.00-1.30) mg/dL NT-Pro-B Natriuret Pep (0-450) pg/mL Arterial Blood Glucose (65-95) mg/dL 04/04/21 04/04/21 04/05/21 Range/Units 20:30 Unknown 05:01 WBC (4.5-11.0) K/mm3 Hct (30.3-42.9) % MCV (79-97) fl MCHC (30-34) % Seg Neuts % (Manual) 94.0 H (40.0-70.0) % Lymphocytes % (Manual) 1.0 L (13.4-35.0) % Monocytes % (Manual) (0.0-7.3) % Basophils % (Manual) (0.0-1.8) % Seg Neutrophils # Man 8.7 H (1.8-7.7) K/mm3 Lymphocytes # (Manual) 0.1 L (1.2-5.4) K/mm3 Monocytes # (Manual) (0.0-0.8) K/mm3 Basophils # (Manual) (0.0-0.1) K/mm3 PT (12.2-14.9) Sec. D-Dimer (0-234) ng/mlDDU ABG pH 7.267 L (7.350-7.450) pH Units POC ABG pCO2 (32.0-48.0) mmHg POC ABG pO2 (83-108) mmHg ABG pO2 125.0 H (80.0-90.0) mm Hg ABG HCO3 38.7 H (20.0-26.0) mmol/L ABG Base Excess 8.6 H (-2.0-3.0) mmol/L ABG Oxyhemoglobin (94-98) ABG Sodium (136.0-145.0) mmol/L ABG Chloride (98-107) mmol/L ABG Glucose (65-95) mg/dL Oxyhemoglobin 94.9 L (95.0-99.0) % Sodium (137-145) mmol/L Chloride (98-107) mmol/L Carbon Dioxide (22-30) mmol/L BUN (7-17) mg/dL Glucose (65-100) mg/dL Magnesium (1.7-2.3) mg/dL Ferritin (10.0-200.0) ng/mL AST (5-40) units/L Lactate Dehydrogenase 434 H (91-180) units/L C-Reactive Protein 7.90 H (0.00-1.30) mg/dL NT-Pro-B Natriuret Pep (0-450) pg/mL Arterial Blood Glucose (65-95) mg/dL 04/05/21 04/05/21 Range/Units 05:01 08:00 WBC (4.5-11.0) K/mm3 Hct (30.3-42.9) % MCV (79-97) fl MCHC (30-34) % Seg Neuts % (Manual) (40.0-70.0) % Lymphocytes % (Manual) (13.4-35.0) % Monocytes % (Manual) (0.0-7.3) % Basophils % (Manual) (0.0-1.8) % Seg Neutrophils # Man (1.8-7.7) K/mm3 Lymphocytes # (Manual) (1.2-5.4) K/mm3 Monocytes # (Manual) (0.0-0.8) K/mm3 Basophils # (Manual) (0.0-0.1) K/mm3 PT (12.2-14.9) Sec. D-Dimer (0-234) ng/mlDDU ABG pH (7.350-7.450) pH Units POC ABG pCO2 76.0 H (32.0-48.0) mmHg POC ABG pO2 66.9 L (83-108) mmHg ABG pO2 (80.0-90.0) mm Hg ABG HCO3 (20.0-26.0) mmol/L ABG Base Excess (-2.0-3.0) mmol/L ABG Oxyhemoglobin 92.2 L (94-98) ABG Sodium 134.3 L (136.0-145.0) mmol/L ABG Chloride 91.0 L (98-107) mmol/L ABG Glucose 156 H (65-95) mg/dL Oxyhemoglobin (95.0-99.0) % Sodium (137-145) mmol/L Chloride 91.5 L (98-107) mmol/L Carbon Dioxide 35 H (22-30) mmol/L BUN 23 H (7-17) mg/dL Glucose 178 H (65-100) mg/dL Magnesium (1.7-2.3) mg/dL Ferritin (10.0-200.0) ng/mL AST (5-40) units/L Lactate Dehydrogenase (91-180) units/L C-Reactive Protein (0.00-1.30) mg/dL NT-Pro-B Natriuret Pep (0-450) pg/mL Arterial Blood Glucose 156 H (65-95) mg/dL - Imaging and Cardiology Chest x-ray: report reviewed, image reviewed Assessment and Plan Cultures: SARS CoV2 PCR: Pending A/P: 50-year-old female admitted with: #COVID-19 PUI #Acute hypercapnic respiratory failure: Requiring BiPAP #Morbid obesity Recs: Already on steroids per pulmonary Procalcitonin is low, ceftriaxone can be discontinued. Okay to complete 5 days of azithromycin Follow-up COVID-19 PCR, low suspicion. If COVID-19 is positive, start remdesivir Sean Fuentes MD, FACP [facility] ([facility] O: [phone] F: [phone]
--- NOTE | 2021-04-05 12:53 | Consultation ---
History of Present Illness Consult date: 04/05/21 Consult reason: congestive heart failure History of present illness: 50-year old mobidly obese women with a history of COPD and Asthma admitted with shortness of breath, and hypoxemia. She was also severely hypertensive, systolic BP of 219 on presentation. Chest x-ray reports cardiomegaly with interstitial edema. She is currently on Bipap therapy and undergoing further evaluation for coronavirus infection. Cardiology consultation was requested for CHF evaluation. On presentation, there was no chest pain and no palpitations. No prior cardiac history. Her blood pressure is now controlled, SBP 121. An ECG is sinus tachycardia, otherwise no acute ishemic changes. Past History Past Medical History: COPD, hypertension, other (Asthma) Medications and Allergies Allergies Allergy/AdvReac Type Severity Reaction Status Date / Time acetaminophen [From Percocet] Allergy Itching Verified 04/05/21 01:43 oxycodone [From Percocet] Allergy Itching Verified 04/05/21 01:43 Home Medications Medication Instructions Recorded Confirmed Last Taken Type Tiotropium [Spiriva] 2 puff INHALATION DAILY 04/05/21 04/05/21 Unknown History predniSONE [Deltasone] 20 mg PO QDAY PRN 04/05/21 04/05/21 Unknown History Active Meds: Active Medications Acetaminophen (Acetaminophen 325 Mg Tab) 650 mg PO Q4H PRN PRN Reason: Pain MILD(1-3)/Fever >100.5/MONAE Albuterol (Albuterol 2.5 Mg/3 Ml Nebu) 2.5 mg IH Q4HRT PRN PRN Reason: Shortness Of Breath Albuterol/Ipratropium (Ipratropium/Albuterol Sulfate 3 Ml Ampul.Neb) 1 ampul IH Q6HRT [facility] Last Admin: 04/05/21 08:39 Dose: 1 ampul Documented by: Azithromycin (Azithromycin 250 Mg Tab) 250 mg PO 2200 [facility]; Protocol Budesonide (Budesonide 0.5 Mg/2 Ml Nebu) 0.5 mg IH Q12HRT [facility] Famotidine (Famotidine 20 Mg Tab) 20 mg PO BID [facility] Last Admin: 04/05/21 10:16 Dose: Not Given Documented by: Furosemide (Furosemide 40 Mg/4 Ml Inj) 40 mg IV QDAY [facility] Last Admin: 04/05/21 09:52 Dose: 40 mg Documented by: Heparin Sodium (Porcine) (Heparin 5,000 Unit/1 Ml Vial) 5,000 unit SUB-Q Q8HR [facility] Last Admin: 04/05/21 05:18 Dose: 5,000 unit Documented by: Hydralazine HCl (Hydralazine 20 Mg/1 Ml Inj) 10 mg IV Q6H PRN PRN Reason: Blood Pressure Last Admin: 04/04/21 22:50 Dose: 10 mg Documented by: Hydromorphone HCl (Hydromorphone 1 Mg/1 Ml Inj) 0.5 mg IV Q3H PRN PRN Reason: Pain , Severe (7-10) Last Admin: 04/05/21 08:40 Dose: 0.5 mg Documented by: Ceftriaxone Sodium (Rocephin/Ns 2 Gm/100 Ml) 2 gm in 100 mls @ 200 mls/hr IV Q24HR [facility]; Protocol Last Admin: 04/05/21 09:52 Dose: 200 mls/hr Documented by: Methylprednisolone Sodium Succinate (Methylprednisolone Sod Succinate 40 Mg/1 Ml Inj) 40 mg IV Q6HR [facility] Last Admin: 04/05/21 05:18 Dose: 40 mg Documented by: Montelukast Sodium (Montelukast 10 Mg Tab) 10 mg PO QHS [facility] Ondansetron HCl (Ondansetron 4 Mg/2 Ml Inj) 4 mg IV Q8H PRN PRN Reason: Nausea And Vomiting Oxycodone/Acetaminophen (Oxycodone /Acetaminophen 5-325mg Tab) 1 tab PO Q6H PRN PRN Reason: Pain, Moderate (4-6) Sodium Chloride (Sodium Chloride 0.9% 10 Ml Flush Syringe) 10 ml IV BID [facility] Last Admin: 04/05/21 09:53 Dose: 10 ml Documented by: Sodium Chloride (Sodium Chloride 0.9% 10 Ml Flush Syringe) 10 ml IV PRN PRN PRN Reason: LINE FLUSH Physical Examination Vital Signs Pulse Resp BP Pulse Ox 128 H 35 H 219/124 98 04/04/21 17:50 04/04/21 17:50 04/04/21 17:50 04/04/21 17:50 Narrative exam: Deferred due to isolation protocol. General appearance: other (on Bipap) Cardiac: Positive: Reg Rate and Rhythm Results 04/05/21 05:01 04/05/21 05:01 Cardiac Enzymes 04/04/21 04/04/21 Range/Units 17:53 20:30 AST 43 H (5-40) units/L Lactate Dehydrogenase 434 H (91-180) units/L Coagulation 04/04/21 Range/Units 17:53 PT 15.0 H (12.2-14.9) Sec. INR 1.06 (0.87-1.13) CBC 04/04/21 04/05/21 Range/Units 17:53 05:01 WBC 11.8 H 9.3 (4.5-11.0) K/mm3 RBC 4.58 3.97 (3.65-5.03) M/mm3 Hgb 13.1 11.9 (10.1-14.3) gm/dl Hct 45.5 H 38.2 D (30.3-42.9) % Plt Count 241 190 (140-440) K/mm3 Comprehensive Metabolic Panel 04/04/21 04/05/21 Range/Units 17:53 05:01 Sodium 136 L 140 (137-145) mmol/L Potassium 4.8 4.5 (3.6-5.0) mmol/L Chloride 87.0 L 91.5 L (98-107) mmol/L Carbon Dioxide 31 H 35 H (22-30) mmol/L BUN 20 H 23 H (7-17) mg/dL Creatinine 1.0 0.7 (0.6-1.2) mg/dL Glucose 130 H 178 H (65-100) mg/dL Calcium 9.3 8.9 (8.4-10.2) mg/dL AST 43 H (5-40) units/L ALT 30 (7-56) units/L Alkaline Phosphatase 68 (35-129) units/L Total Protein 7.7 (6.3-8.2) g/dL Albumin 4.8 (3.9-5) g/dL Assessment and Plan - Patient Problems (1) Acute respiratory failure with hypoxia Current Visit: Yes Status: Acute
[2021-04-05] MEDS: BUDESONIDE 0.5 MG/2 ML NEBU IH SCH ×2 (14:59→19:46)
[2021-04-05] MEDS ORDERED: REMDESIVIR 200 MG in SODIUM CHLORIDE 0.9% 250ML 250 ML IV ONE (17:07)
[2021-04-05] MEDS ORDERED: TOCILIZUMAB 400 MG in SODIUM CHLORIDE 0.9% 100 ML IV ONE (17:10)
[2021-04-05] MEDS ORDERED: DEXTROSE 50% IN WATER (25GM) 50 ML SYRINGE IV PRN (17:22)
--- NOTE | 2021-04-05 17:25 | Progress Note ---
Assessment and Plan Assessment and plan: This is a 50-year-old female with asthma, COPD and former smoker admitted as a COVID-19 PUI with COPD exacerbation and pneumonia. Neuro: NAD -Avoid delirium -Reorientation as needed -Aspiration/fall precautions -As needed analgesia Cardio: Possible CHF -Cardiology consulted, appreciate recommendations -IV Lasix -Echocardiogram shows mildly dilated right heart chambers, moderate tricuspid regurgitation, moderate pulmonary hypertension, RVSP is 55 to 60% millimeters mercury, LVEF 55 to 60% -Per cardiology: We will pursue conservative cardiac approach -Blood pressure monitor per protocol -As needed hydralazine -proBNP 1910 Respiratory: Acute hypoxic hypercapnic respiratory failure, h/o asthma and COPD, former nicotine abuse -Pulmonology consulted, patient recommendations -BiPAP as needed -IV steroids -IV Lasix -Pulmicort, albuterol, DuoNeb, Singulair -SPO2 monitor per protocol -Supplemental oxygen as needed -Patient weaned to OptiFlow GI: MO -Cardiac diet - : Urinary retention -Krueger placed 04/05 due to urinary retention -We will discontinue Krueger today -Bladder scan -Straight cath if needed -Replace Krueger if retention issues -Trend BMP ID: COVID-19 PNA, Sepsis -Infectious disease consulted, appreciate recommendations -Droplet/isolation precautions -COVID-19 PCR positive -Patient states she received 2 doses of either vaccine but did not receive booster -Solu-Medrol -Ceftriaxone discontinued per ID -Azithromycin () -Trend COVID-19 inflammatory markers -Remdesivir (04/05-04/10) -Anticoagulation per hospital policy -Trend CMP while on remdesivir Endo: Hyperglycemia -SSI -Accu-Cheks every 6 -Avoid hypoglycemia Heme: Leukocytosis -Presented with leukocytosis at 11.8 -Now resolved -Trend CBC -Transfuse for hemoglobin less than 7 -Heparin subcu The high probability of a clinically significant, sudden or life threatening deterioration of the [resp] system(s) required my full and direct attention, intervention and personal management. The aggregate critical care time was [60] minutes. This time is in addition to time spent performing reported procedures but includes the following: [x] Data Review and interpretation [x] Patient assessment and monitoring of vital signs [x] Documentation [x] Medication orders and management Disposition Plan: imcu Total Time Spent with Patient (Minutes): 60 History Interval history: This is a 50-year-old female with asthma, COPD and former smoker who presented to emergency department on 04/04 with a 2-day history of progressively worsening shortness of breath via EMS. On EMS arrival patient was found to have SPO2 of 40% on room air and was placed on CPAP, given albuterol, Solu-Medrol, magnesium and IM epinephrine with increase of SPO2 to 70%. Patient states that she is vaccinated with 2 doses of Pfizer vaccine but has not received a booster. Patient did acknowledge contact with patient's that are Covid positive at home. Recommend emergency department patient was found to have acute respiratory failure and placed on BiPAP and repeat ABG showed improvement and CXR showed pulmonary edema. Patient was admitted to the hospitalist service as a COVID-19 PUI with COPD exacerbation. 04/05: Patient remained on BiPAP therapy and was transitioned to OptiFlow this afternoon. She had a Krueger catheter placed yesterday due to retention which will be discontinued today. Patient is positive for COVID-19. Echocardiogram completed and cardiology will pursue a conservative cardiac approach. Will start remdesivir per ID recommendation. Hospitalist Physical - Constitutional Vitals: Temp Pulse Resp BP Pulse Ox 98 F 83 14 124/63 91 04/05/21 04:49 04/05/21 17:10 04/05/21 17:10 04/05/21 17:10 04/05/21 17:10 General appearance: Present: no acute distress, other (on Bipap) - EENT Eyes: Present: PERRL, EOM intact ENT: hearing intact, clear oral mucosa, dentition normal - Neck Neck: Present: supple, normal ROM - Respiratory Respiratory effort: normal Respiratory: bilateral: diminished - Cardiovascular Rhythm: regular Heart Sounds: Present: S1 & S2 - Extremities Extremities: no ischemia, pulses intact, pulses symmetrical, No edema, normal temperature, normal color Peripheral Pulses: within normal limits - Abdominal General gastrointestinal: soft, non-tender, non-distended, normal bowel sounds - Integumentary Integumentary: Present: warm, dry - Psychiatric Psychiatric: cooperative - Neurologic Neurologic: CNII-XII intact, no focal deficits, moves all extremities - Allied Health Allied health notes reviewed: nursing, RT, social work HEART Score - HEART Score Troponin: Troponin T < 0.010 ng/mL (0.00-0.029) 04/04/21 17:53 Results - Labs CBC & Chem 7: 04/05/21 05:01 04/05/21 05:01 Labs: Laboratory Last Values WBC 9.3 K/mm3 (4.5-11.0) 04/05/21 05:01 RBC 3.97 M/mm3 (3.65-5.03) 04/05/21 05:01 Hgb 11.9 gm/dl (10.1-14.3) 04/05/21 05:01 Hct 38.2 % (30.3-42.9) D 04/05/21 05:01 MCV 96 fl (79-97) 04/05/21 05:01 MCH 30 pg (28-32) 04/05/21 05:01 MCHC 31 % (30-34) 04/05/21 05:01 RDW 14.2 % (13.2-15.2) 04/05/21 05:01 Plt Count 190 K/mm3 (140-440) 04/05/21 05:01 [place] % (Auto) Rubber And Pounder 04/04/21 17:53 Baso % (Auto) Rubber And Pounder 04/04/21 17:53 Add Manual Diff Complete 04/05/21 05:01 Total Counted 100 04/05/21 05:01 Seg Neutrophils % Rubber And Pounder 04/05/21 05:01 Seg Neuts % (Manual) 94.0 % (40.0-70.0) H 04/05/21 05:01 Band Neutrophils % 1.0 % 04/05/21 05:01 Lymphocytes % (Manual) 1.0 % (13.4-35.0) L 04/05/21 05:01 Monocytes % (Manual) 4.0 % (0.0-7.3) 04/05/21 05:01 Eosinophils % (Manual) 1.0 % (0.0-4.3) 04/04/21 17:53 Basophils % (Manual) 3.0 % (0.0-1.8) H 04/04/21 17:53 Nucleated RBC % Not Reportable 04/05/21 05:01 Seg Neutrophils # Man 8.7 K/mm3 (1.8-7.7) H 04/05/21 05:01 Band Neutrophils # 0.1 K/mm3 04/05/21 05:01 Lymphocytes # (Manual) 0.1 K/mm3 (1.2-5.4) L 04/05/21 05:01 Abs React Lymphs (Man) 0.0 K/mm3 04/05/21 05:01 Monocytes # (Manual) 0.4 K/mm3 (0.0-0.8) 04/05/21 05:01 Eosinophils # (Manual) 0.0 K/mm3 (0.0-0.4) 04/05/21 05:01 Basophils # (Manual) 0.0 K/mm3 (0.0-0.1) 04/05/21 05:01 Metamyelocytes # 0.0 K/mm3 04/05/21 05:01 Myelocytes # 0.0 K/mm3 04/05/21 05:01 Promyelocytes # 0.0 K/mm3 04/05/21 05:01 Blast Cells # 0.0 K/mm3 04/05/21 05:01 WBC Morphology Not Reportable 04/05/21 05:01 Hypersegmented Neuts Not Reportable 04/05/21 05:01 Hyposegmented Neuts Not Reportable 04/05/21 05:01 Hypogranular Neuts Not Reportable 04/05/21 05:01 Smudge Cells Not Reportable 04/05/21 05:01 Toxic Granulation Not Reportable 04/05/21 05:01 Toxic Vacuolation Not Reportable 04/05/21 05:01 Dohle Bodies Not Reportable 04/05/21 05:01 Pelger-Huet Anomaly Not Reportable 04/05/21 05:01 Bronson Rods Not Reportable 04/05/21 05:01 Platelet Estimate Consistent w auto 04/05/21 05:01 Clumped Platelets Not Reportable 04/05/21 05:01 Plt Clumps, EDTA Not Reportable 04/05/21 05:01 Large Platelets Not Reportable 04/05/21 05:01 Giant Platelets Not Reportable 04/05/21 05:01 Platelet Satelliting Not Reportable 04/05/21 05:01 Plt Morphology Comment Not Reportable 04/05/21 05:01 RBC Morphology Not Reportable 04/05/21 05:01 Dimorphic RBCs Not Reportable 04/05/21 05:01 Polychromasia Not Reportable 04/05/21 05:01 Hypochromasia Not Reportable 04/05/21 05:01 Poikilocytosis Not Reportable 04/05/21 05:01 Anisocytosis 1+ 04/05/21 05:01 Microcytosis Not Reportable 04/05/21 05:01 Macrocytosis Not Reportable 04/05/21 05:01 Spherocytes Not Reportable 04/05/21 05:01 Pappenheimer Bodies Not Reportable 04/05/21 05:01 Sickle Cells Not Reportable 04/05/21 05:01 Target Cells Not Reportable 04/05/21 05:01 Tear Drop Cells Not Reportable 04/05/21 05:01 Ovalocytes Not Reportable 04/05/21 05:01 Helmet Cells Not Reportable 04/05/21 05:01 Ayers-Clarkson Bodies Not Reportable 04/05/21 05:01 Casselberry Rings Not Reportable 04/05/21 05:01 Esequiel Cells Not Reportable 04/05/21 05:01 Bite Cells Not Reportable 04/05/21 05:01 Crenated Cell Not Reportable 04/05/21 05:01 Elliptocytes Not Reportable 04/05/21 05:01 Acanthocytes (Spur) Not Reportable 04/05/21 05:01 Rouleaux Not Reportable 04/05/21 05:01 Hemoglobin C Crystals Not Reportable 04/05/21 05:01 Schistocytes Not Reportable 04/05/21 05:01 Malaria parasites Not Reportable 04/05/21 05:01 Jesus Alberto Bodies Not Reportable 04/05/21 05:01 Hem Pathologist Commnt No 04/05/21 05:01 PT 15.0 Sec. (12.2-14.9) H 04/04/21 17:53 INR 1.06 (0.87-1.13) 04/04/21 17:53 D-Dimer 283.80 ng/mlDDU (0-234) H 04/04/21 20:30 ABG pH 7.342 (7.320-7.450) 04/05/21 08:00 POC ABG pCO2 76.0 mmHg (32.0-48.0) H 04/05/21 08:00 ABG pCO2 86.8 mm Hg 04/04/21 Unknown POC ABG pO2 66.9 mmHg (83-108) L 04/05/21 08:00 ABG pO2 125.0 mm Hg (80.0-90.0) H 04/04/21 Unknown POC ABG HCO3 40.3 04/05/21 08:00 ABG HCO3 38.7 mmol/L (20.0-26.0) H 04/04/21 Unknown ABG O2 Saturation 93.5 (0-100) 04/05/21 08:00 ABG O2 Content 17.1 (0.0-44) 04/04/21 Unknown POC ABG Base Excess 11.3 04/05/21 08:00 ABG Base Excess 8.6 mmol/L (-2.0-3.0) H 04/04/21 Unknown ABG Hemoglobin 13.4 (12.0-17.5) 04/05/21 08:00 ABG Oxyhemoglobin 92.2 (94-98) L 04/05/21 08:00 ABG Carboxyhemoglobin 2.4 % (0.0-5.0) 04/04/21 Unknown ABG Methemoglobin 0.3 (0.0-1.5) 04/05/21 08:00 ABG Sodium 134.3 mmol/L (136.0-145.0) L 04/05/21 08:00 ABG Potassium 4.5 mmol/L (3.40-4.50) 04/05/21 08:00 ABG Chloride 91.0 mmol/L (98-107) L 04/05/21 08:00 ABG Glucose 156 mg/dL (65-95) H 04/05/21 08:00 Oxyhemoglobin 94.9 % (95.0-99.0) L 04/04/21 Unknown Carboxyhemoglobin 1.1 (0.5-1.5) 04/05/21 08:00 FiO2 80 % 04/04/21 Unknown FiO2 % 50.0 04/05/21 08:00 Sodium 140 mmol/L (137-145) 04/05/21 05:01 Potassium 4.5 mmol/L (3.6-5.0) 04/05/21 05:01 Chloride 91.5 mmol/L (98-107) L 04/05/21 05:01 Carbon Dioxide 35 mmol/L (22-30) H 04/05/21 05:01 Anion Gap 18 mmol/L 04/05/21 05:01 BUN 23 mg/dL (7-17) H 04/05/21 05:01 Creatinine 0.7 mg/dL (0.6-1.2) 04/05/21 05:01 Estimated GFR > 60 ml/min 04/05/21 05:01 BUN/Creatinine Ratio 33 % 04/05/21 05:01 Glucose 178 mg/dL (65-100) H 04/05/21 05:01 Calcium 8.9 mg/dL (8.4-10.2) 04/05/21 05:01 Magnesium 2.90 mg/dL (1.7-2.3) H 04/04/21 17:53 Ferritin 236.2 ng/mL (10.0-200.0) H 04/04/21 20:30 Total Bilirubin 1.10 mg/dL (0.1-1.2) 04/04/21 17:53 AST 43 units/L (5-40) H 04/04/21 17:53 ALT 30 units/L (7-56) 04/04/21 17:53 Alkaline Phosphatase 68 units/L (35-129) 04/04/21 17:53 Lactate Dehydrogenase 434 units/L (91-180) H 04/04/21 20:30 Troponin T < 0.010 ng/mL (0.00-0.029) 04/04/21 17:53 C-Reactive Protein 7.90 mg/dL (0.00-1.30) H 04/04/21 20:30 NT-Pro-B Natriuret Pep 1911 pg/mL (0-450) H 04/04/21 17:53 Total Protein 7.7 g/dL (6.3-8.2) 04/04/21 17:53 Albumin 4.8 g/dL (3.9-5) 04/04/21 17:53 Albumin/Globulin Ratio 1.7 % 04/04/21 17:53 Procalcitonin 0.07 ng/mL (<0.15) 04/04/21 20:30 Arterial Blood Glucose 156 mg/dL (65-95) H 04/05/21 08:00 Arterial Blood Ionized Calcium 4.6 mg/dL (4.6-5.3) 04/05/21 08:00 Coronavirus (PCR) Positive (Negative) A 04/05/21 Unknown Krueger/IV: Voiding Method Indwelling Catheter Active Medications - Current Medications Current Medications: Generic Name Dose Route Start Last Admin Trade Name Freq PRN Reason Stop Dose Admin Acetaminophen 650 mg 04/04/21 21:56 Acetaminophen 325 Mg Tab PO Q4H PRN Pain MILD(1-3)/Fever >100.5/MONAE Albuterol 2.5 mg 04/04/21 21:56 Albuterol 2.5 Mg/3 Ml Nebu IH Q4HRT PRN Shortness Of Breath Albuterol/Ipratropium 1 ampul 04/05/21 02:00 04/05/21 15:06 Ipratropium/Albuterol Sulfate 3 Ml Ampul.Neb IH 1 ampul Q6HRT JULIO Administration Azithromycin 250 mg 04/05/21 22:00 Azithromycin 250 Mg Tab PO 2200 [facility] Protocol Budesonide 0.5 mg 04/05/21 10:45 04/05/21 14:59 Budesonide 0.5 Mg/2 Ml Nebu IH Not Given Q12HRT JULIO Dextrose 50 ml 04/05/21 17:22 Dextrose 50% In Water (25gm) 50 Ml Syringe IV Q30MIN PRN Hypoglycemia Protocol Famotidine 20 mg 04/04/21 22:00 04/05/21 10:16 Famotidine 20 Mg Tab PO Not Given BID JULIO Furosemide 40 mg 04/05/21 10:00 04/05/21 09:52 Furosemide 40 Mg/4 Ml Inj IV 40 mg QDAY JULIO Administration Heparin Sodium (Porcine) 5,000 unit 04/04/21 22:00 04/05/21 13:29 Heparin 5,000 Unit/1 Ml Vial SUB-Q 5,000 unit Q8HR JULIO Administration Hydralazine HCl 10 mg 04/04/21 22:13 04/04/21 22:50 Hydralazine 20 Mg/1 Ml Inj IV 10 mg Q6H PRN Administration Blood Pressure Hydromorphone HCl 0.5 mg 04/04/21 21:56 04/05/21 08:40 Hydromorphone 1 Mg/1 Ml Inj IV 0.5 mg Q3H PRN Administration Pain , Severe (7-10) Ceftriaxone Sodium 2 gm in 100 mls @ 200 mls/hr 04/04/21 23:00 04/05/21 09:52 Rocephin/Ns 2 Gm/100 Ml IV 200 mls/hr Q24HR JULIO Administration Protocol REMDESIVIR 200 mg/ Sodium 250 mls @ 500 mls/hr 04/05/21 17:07 Chloride IV 04/05/21 17:36 ONCE ONE REMDESIVIR 100 mg/ Sodium 250 mls @ 500 mls/hr 04/06/21 21:00 Chloride IV 04/09/21 21:29 Q24HR@2100 [facility] TOCILIZUMAB 400 mg/ Sodium 120 mls @ 120 mls/hr 04/05/21 17:10 Chloride IV 04/05/21 18:09 ONCE ONE Insulin Human Regular 0 units 04/05/21 22:00 Insulin Regular, Human 100 Units/1 Ml SUB-Q ACHS [facility] Protocol Methylprednisolone Sodium Succinate 40 mg 04/05/21 00:00 04/05/21 13:29 Methylprednisolone Sod Succinate 40 Mg/1 Ml Inj IV 40 mg Q6HR JULIO Administration Montelukast Sodium 10 mg 04/04/21 22:00 Montelukast 10 Mg Tab PO QHS [facility] Ondansetron HCl 4 mg 04/04/21 21:56 Ondansetron 4 Mg/2 Ml Inj IV Q8H PRN Nausea And Vomiting Oxycodone/Acetaminophen 1 tab 04/04/21 21:56 Oxycodone /Acetaminophen 5-325mg Tab PO Q6H PRN Pain, Moderate (4-6) Sodium Chloride 10 ml 04/04/21 22:00 04/05/21 09:53 Sodium Chloride 0.9% 10 Ml Flush Syringe IV 10 ml BID JULIO Administration Sodium Chloride 10 ml 04/04/21 21:56 Sodium Chloride 0.9% 10 Ml Flush Syringe IV PRN PRN LINE FLUSH Sodium Chloride 50 ml 04/05/21 21:00 Sodium Chloride 0.9% 50 Ml Ivpb IV 04/09/21 21:01 Q24HR@2100 [facility]
[2021-04-05] MEDS ORDERED: SODIUM CHLORIDE 0.9% 50 ML IVPB IV SCH ×2 (18:01→21:00)
[2021-04-05] MEDS ORDERED: SODIUM CHLORIDE 0.9% 100 ML IVPB IV ONE (18:06)
[2021-04-05 19:42] LABS: Alanine Aminotransferase 28 units/L (7-56); Albumin 3.8 g/dL (3.9-5); Blood Urea Nitrogen 25 mg/dL (7-17); Hemolysis Index 39
[2021-04-05 19:44] LABS: BUN/Creatinine Ratio 42
[2021-04-05] MEDS: MONTELUKAST 10 MG TAB PO SCH ×2 (22:30→22:35)
[2021-04-05] MEDS: INSULIN REGULAR, HUMAN 100 UNITS/1 ML SUB-Q SCH (22:35)
[2021-04-06] MEDS: methylPREDNISolone Sod Succinate 40 MG/1 ML INJ IV SCH ×4 (00:50→18:09)
[2021-04-06] MEDS: IPRATROPIUM/ALBUTEROL SULFATE 3 ML AMPUL.NEB IH SCH ×2 (02:29→08:37)
[2021-04-06] MEDS: HYDROmorphone 1 MG/1 ML INJ IV PRN ×3 (04:24→18:09)
[2021-04-06] MEDS: HEPARIN 5,000 UNIT/1 ML VIAL SUB-Q SCH (06:04)
[2021-04-06 06:42] LABS: Alanine Aminotransferase 31 units/L (7-56); Blood Urea Nitrogen 26 mg/dL (7-17); Calcium 9.1 mg/dL (8.4-10.2); Hemolysis Index 16
[2021-04-06 06:53] LABS: BUN/Creatinine Ratio 43
[2021-04-06] MEDS: INSULIN REGULAR, HUMAN 100 UNITS/1 ML SUB-Q SCH ×4 (08:06→22:10)
--- NOTE | 2021-04-06 08:14 | Progress Note ---
Assessment and Plan COVID 19 pneumonia Acute hypoxic respiratory failure Morbid obesity Hx of COPD, and asthma Hypertension An echo shows a normal left ventricular systolic function, ejection fraction 55- 60%. Conservative cardiac management. Subjective Date of service: 04/06/21 Interval history: Patient is on high flow oxygen. Objective Vital Signs Temp Pulse Pulse Resp Resp BP Pulse Ox 04/06/21 07:21 65 16 118/63 95 04/06/21 07:11 68 15 118/63 96 04/06/21 07:00 62 16 118/63 93 04/06/21 06:51 65 15 132/67 95 04/06/21 06:41 70 16 132/67 96 04/06/21 06:31 71 13 132/67 95 04/06/21 06:21 69 16 132/67 95 04/06/21 06:11 72 15 132/67 95 04/06/21 06:00 64 15 132/67 92 04/06/21 05:51 67 13 122/70 95 04/06/21 05:50 95 04/06/21 05:41 71 15 122/70 95 04/06/21 05:31 70 15 122/70 94 04/06/21 05:21 67 14 122/70 94 04/06/21 05:11 68 15 122/70 93 04/06/21 05:00 70 16 122/70 92 04/06/21 04:51 68 15 125/55 93 04/06/21 04:41 73 14 125/55 92 04/06/21 04:31 71 14 125/55 92 04/06/21 04:21 78 17 125/55 93 04/06/21 04:11 72 11 L 125/55 95 04/06/21 04:00 98.2 F 56 L 11 L 125/55 95 04/06/21 03:51 126/60 95 04/06/21 03:41 126/60 95 04/06/21 03:31 126/60 96 04/06/21 03:21 64 17 126/60 94 04/06/21 03:11 63 18 126/60 94 04/06/21 03:00 61 12 126/60 92 04/06/21 02:51 69 10 L 136/76 96 04/06/21 02:46 69 15 04/06/21 02:41 65 9 L 136/76 97 04/06/21 02:31 69 13 136/76 96 04/06/21 02:30 67 12 04/06/21 02:21 71 18 136/76 94 04/06/21 02:11 73 17 136/76 94 04/06/21 02:00 77 17 136/76 91 04/06/21 01:51 70 18 134/62 93 04/06/21 01:41 70 15 134/62 92 04/06/21 01:31 74 15 134/62 94 04/06/21 01:21 70 18 134/62 95 04/06/21 01:11 65 19 134/62 95 04/06/21 01:01 69 13 134/62 93 04/06/21 00:51 67 8 L 134/76 93 04/06/21 00:41 67 10 L 134/76 95 04/06/21 00:31 70 14 134/76 94 04/06/21 00:21 78 17 134/76 95 04/06/21 00:11 90 16 134/76 90 04/06/21 00:05 95 04/06/21 00:00 98.6 F 69 18 134/76 91 04/05/21 23:51 72 10 L 131/67 97 04/05/21 23:41 70 20 131/67 96 04/05/21 23:31 67 19 131/67 96 04/05/21 23:21 60 18 131/67 97 04/05/21 23:15 64 14 131/67 97 04/05/21 23:11 76 13 131/67 98 04/05/21 23:00 56 L 19 131/67 93 04/05/21 22:51 64 12 122/57 97 04/05/21 22:41 71 16 122/57 95 04/05/21 22:31 60 11 L 122/57 95 04/05/21 22:21 68 17 122/57 95 04/05/21 22:11 66 16 122/57 95 04/05/21 22:00 68 17 122/57 91 04/05/21 21:51 68 16 134/62 92 04/05/21 21:41 68 17 134/62 92 04/05/21 21:31 69 17 134/62 93 04/05/21 21:21 75 16 134/62 91 04/05/21 21:11 70 17 134/62 92 04/05/21 21:00 71 12 134/62 90 04/05/21 20:51 70 17 122/62 93 04/05/21 20:40 69 10 L 122/62 93 04/05/21 20:30 70 15 122/62 93 04/05/21 20:22 59 L 10 L 122/62 96 04/05/21 20:10 69 16 138/66 98 04/05/21 20:00 98.6 F 60 18 138/66 97 04/05/21 19:52 96 04/05/21 19:50 68 12 138/66 95 04/05/21 19:48 66 12 04/05/21 19:40 69 15 138/66 95 04/05/21 19:30 64 11 L 138/66 96 04/05/21 19:20 73 14 111/56 96 04/05/21 19:10 84 8 L 111/56 94 04/05/21 19:00 73 12 111/56 95 04/05/21 18:50 68 9 L 111/56 95 04/05/21 18:40 77 13 111/56 95 04/05/21 18:30 70 12 111/56 96 04/05/21 18:20 98.7 F 76 11 L 111/56 95 04/05/21 18:10 83 10 L 111/56 96 04/05/21 18:00 72 8 L 124/63 94 04/05/21 17:50 73 9 L 124/63 95 04/05/21 17:40 86 18 124/63 89 04/05/21 17:30 67 12 124/63 94 04/05/21 17:20 93 H 20 124/63 85 04/05/21 17:10 83 14 124/63 91 04/05/21 17:00 74 9 L 124/63 94 04/05/21 16:50 74 10 L 124/63 93 04/05/21 16:40 92 H 15 124/63 94 04/05/21 16:30 76 12 124/63 04/05/21 16:20 75 11 L 124/63 93 04/05/21 16:10 78 14 124/63 94 04/05/21 16:00 68 18 124/63 97 04/05/21 15:50 96 H 16 113/58 89 04/05/21 15:40 85 21 113/58 94 11/16/21 15:30 74 10 L 113/58 96 04/05/21 15:20 83 11 L 113/58 98 04/05/21 15:10 81 11 L 113/58 97 04/05/21 15:00 76 16 118/61 96 04/05/21 14:50 84 19 118/61 95 04/05/21 14:40 81 24 118/61 95 04/05/21 14:30 81 13 118/61 95 04/05/21 14:20 88 12 118/61 94 04/05/21 14:10 86 17 118/61 95 04/05/21 14:00 76 85 12 18 122/68 95 04/05/21 13:50 78 14 122/68 95 04/05/21 13:40 81 10 L 122/68 95 04/05/21 13:30 77 11 L 122/68 93 04/05/21 13:20 82 12 122/68 89 04/05/21 13:10 76 20 122/68 93 04/05/21 13:00 90 14 122/68 88 04/05/21 12:50 79 14 120/78 93 04/05/21 12:40 69 15 120/78 94 04/05/21 12:30 71 14 120/78 95 04/05/21 12:20 67 17 120/78 97 04/05/21 12:10 75 21 120/78 95 04/05/21 12:08 95 04/05/21 12:00 61 16 128/78 96 04/05/21 11:50 66 16 128/78 97 04/05/21 11:40 59 L 17 128/78 97 04/05/21 11:30 71 14 128/78 96 04/05/21 11:20 68 14 128/78 97 04/05/21 11:10 59 L 16 128/78 96 04/05/21 11:00 64 19 128/78 97 04/05/21 10:50 61 15 121/67 96 04/05/21 10:40 68 16 121/67 96 04/05/21 10:30 63 14 121/67 97 04/05/21 10:20 66 16 121/67 96 04/05/21 10:10 60 13 121/67 97 04/05/21 10:00 68 14 122/60 97 04/05/21 09:50 68 13 122/60 97 04/05/21 09:40 58 L 12 122/60 96 04/05/21 09:30 63 14 122/60 96 04/05/21 09:20 64 14 122/60 96 04/05/21 09:10 57 L 14 122/60 96 04/05/21 09:00 64 12 122/60 96 04/05/21 08:50 68 14 116/63 98 04/05/21 08:40 60 21 116/63 98 04/05/21 08:38 59 L 60 16 16 116/63 98 04/05/21 08:30 77 16 116/63 97 04/05/21 08:20 66 19 116/63 98 - Physical Examination Narrative exam: Deferred due to isolation protocol. General: No Apparent Distress Cardiac: Positive: Reg Rate and Rhythm - Labs and Meds Cardiac Enzymes 04/05/21 04/06/21 Range/Units 18:25 05:36 AST 68 H 74 H (5-40) units/L Comprehensive Metabolic Panel 04/05/21 04/06/21 Range/Units 18:25 05:36 Sodium 136 L 139 (137-145) mmol/L Potassium 4.5 4.3 (3.6-5.0) mmol/L Chloride 87.1 L 88.5 L (98-107) mmol/L Carbon Dioxide 36 H 37 H (22-30) mmol/L BUN 25 H 26 H (7-17) mg/dL Creatinine 0.6 0.6 (0.6-1.2) mg/dL Glucose 127 H 132 H (65-100) mg/dL Calcium 9.0 9.1 (8.4-10.2) mg/dL AST 68 H 74 H (5-40) units/L ALT 28 31 (7-56) units/L Alkaline Phosphatase 55 50 (35-129) units/L Total Protein 7.1 7.2 (6.3-8.2) g/dL Albumin 3.8 L 4.0 (3.9-5) g/dL
[2021-04-06] MEDS: BUDESONIDE 0.5 MG/2 ML NEBU IH SCH (08:37)
--- NOTE | 2021-04-06 08:40 | Electrocardiograph Report ---
[facility] Test Date: 2021-04-04 Test Time: 17:50:37 Pat Name: NENITA JOY Department: Room: A253 1 Gender: F Chief Underwriter: TIFFANIE : 1970 Requested By: AKASH LIVINGSTON Order Number: [id number] Reading MD: Kvng Ferrera Measurements Intervals [place] Rate: 135 P: 65 RI: 130 QRS: 81 QRSD: 92 T: -32 QT: 291 QTc: 437 Interpretive Statements Sinus tachycardia No previous ECG available for comparison Electronically Signed On 04-06-2021 8:39:30 EST by Kvng Ferrera
[2021-04-06] MEDS ORDERED: TOCILIZUMAB 400 MG in SODIUM CHLORIDE 0.9% 100 ML IV SCH (09:00)
[2021-04-06] MEDS: FAMOTIDINE 20 MG TAB PO SCH ×2 (10:10→21:20)
[2021-04-06] MEDS: FUROSEMIDE 40 MG/4 ML INJ IV SCH (10:14)
[2021-04-06 11:37] LABS: Bilirubin,Urine NEG (Negative); Blood,Urine MOD (Negative); Color,Urine Straw (Yellow); Mucus,Urine FEW /HPF; Protein,Urine <15 mg/dL mg/dL (Negative); Urobilinogen,Urine < 2.0 mg/dL (<2.0)
--- NOTE | 2021-04-06 12:49 | Progress Note ---
Assessment and Plan Cultures: SARS CoV2 PCR: positive A/P: 50-year-old female admitted with: #COVID-19 pneumonia: D-dimer 283, CRP 7.9. #Acute hypercapnic and hypoxic respiratory failure: Requiring BiPAP, now on HFNC #Morbid obesity Recs: Already on steroids per pulmonary COVID-19 positive, hence on remdesivir x 5 days anticoagulation per protocol based on d-dimer Complete 5 days of azithromycin S/P Actemra 04/06/2021 Sean Fuentes MD, FACP [facility] O: [phone] F: [phone] Subjective Date of service: 04/06/21 Interval history: Afebrile. COVID-19 PCR came back positive. On high flow nasal cannula. D-dimer 283, CRP 7.9. Objective - Exam Narrative Exam: Physical Exam (reviewed in chart to minimize risk of transmission) Constitutional: deferred Head, Ears, Nose: deferred Eyes: deferred Neck: deferred Oral: deferred Cardiovascular: deferred Respiratory: deferred GI: deferred Musculoskeletal: deferred Skin: deferred Hem/Lymphatic: deferred Psych: deferred Neurological: deferred - Constitutional Vitals: Vital Signs Temp Pulse Resp BP Pulse Ox 98.3 F 76 12 131/59 90 04/06/21 10:15 04/06/21 12:00 04/06/21 12:00 04/06/21 12:00 04/06/21 12:00 Temperature -Last 24 Hours Temperature 98.3 F Temperature 98.2 F Temperature 98.6 F Temperature 98.6 F Temperature 98.7 F - Labs CBC & Chem 7: 04/05/21 05:01 04/06/21 05:36 Labs: Abnormal lab results 04/05/21 04/05/21 04/05/21 Range/Units 18:25 22:33 Unknown Sodium 136 L (137-145) mmol/L Chloride 87.1 L (98-107) mmol/L Carbon Dioxide 36 H (22-30) mmol/L BUN 25 H (7-17) mg/dL Glucose 127 H (65-100) mg/dL POC Glucose 154 H (70-105) mg/dL AST 68 H (5-40) units/L Albumin 3.8 L (3.9-5) g/dL Coronavirus (PCR) Positive A (Negative) 04/06/21 04/06/21 04/06/21 Range/Units 05:36 07:56 11:52 Sodium (137-145) mmol/L Chloride 88.5 L (98-107) mmol/L Carbon Dioxide 37 H (22-30) mmol/L BUN 26 H (7-17) mg/dL Glucose 132 H (65-100) mg/dL POC Glucose 138 H 142 H (70-105) mg/dL AST 74 H (5-40) units/L Albumin (3.9-5) g/dL Coronavirus (PCR) (Negative)
--- NOTE | 2021-04-06 13:51 | Progress Note ---
<KATALINARachelVASUJorje - Last Filed: 04/06/21 13:43> Assessment and Plan Assessment and plan: This is a 50-year-old female with asthma, COPD and former smoker admitted as a COVID-19 PUI with COPD exacerbation and pneumonia. Neuro: NAD -Avoid delirium -Reorientation as needed -Aspiration/fall precautions -As needed analgesia Cardio: Possible CHF -Cardiology consulted, appreciate recommendations -IV Lasix -Echocardiogram shows mildly dilated right heart chambers, moderate tricuspid regurgitation, moderate pulmonary hypertension, RVSP 55-60 mmhg, LVEF 55 to 60% -Per cardiology: We will pursue conservative cardiac approach -Blood pressure monitor per protocol -As needed hydralazine -proBNP 191 Respiratory: Acute hypoxic hypercapnic respiratory failure, h/o asthma and COPD, former nicotine abuse -Pulmonology consulted, patient recommendations -BiPAP qhs -IV steroids -IV Lasix -Pulmicort, albuterol, DuoNeb, Singulair -SPO2 monitor per protocol -Supplemental oxygen as needed -Patient weaned to OptiFlow GI: MO -Cardiac diet -24 hours -3320ml -BR senakot -PPI : Urinary retention, hypochloremia, metabolic alkalosis -Krueger replaced on 04/06 d/t retention -reasses and remove as soon as possible -Trend BMP ID: COVID-19 PNA -Infectious disease consulted, appreciate recommendations -Droplet/isolation precautions -COVID-19 PCR positive -Patient states she received 2 doses of Pfizer vaccine but did not receive booster -Solu-Medrol -Ceftriaxone discontinued per ID -Azithromycin () -Trend COVID-19 inflammatory markers -Remdesivir (04/05-04/10) -Anticoagulation per hospital policy -Trend CMP while on remdesivir -s/p Actemra x1 -Self prone as tolerated Endo: Hyperglycemia -SSI -Accu-Cheks every 6 -Avoid hypoglycemia Heme: Leukocytosis (resolved) -Presented with leukocytosis at 11.8 -Trend CBC -Transfuse for hemoglobin less than 7 -Lovenox sub q The high probability of a clinically significant, sudden or life threatening deterioration of the [resp] system(s) required my full and direct attention, intervention and personal management. The aggregate critical care time was [60] minutes. This time is in addition to time spent performing reported procedures but includes the following: [x] Data Review and interpretation [x] Patient assessment and monitoring of vital signs [x] Documentation [x] Medication orders and management Disposition Plan: transfer to floor Total Time Spent with Patient (Minutes): 60 History Interval history: This is a 50-year-old female with asthma, COPD and former smoker who presented to emergency department on 04/04 with a 2-day history of progressively worsening shortness of breath via EMS. On EMS arrival patient was found to have SPO2 of 40% on room air and was placed on CPAP, given albuterol, Solu-Medrol, magnesium and IM epinephrine with increase of SPO2 to 70%. Patient states that she is vaccinated with 2 doses of Pfizer vaccine but has not received a booster. Patient did acknowledge contact with patient's that are Covid positive at home. Recommend emergency department patient was found to have acute respiratory failure and placed on BiPAP and repeat ABG showed improvement and CXR showed pulmonary edema. Patient was admitted to the hospitalist service as a COVID-19 PUI with COPD exacerbation. 04/05: Patient remained on BiPAP therapy and was transitioned to OptiFlow this afternoon. She had a Krueger catheter placed yesterday due to retention which will be discontinued today. Patient is positive for COVID-19. Echocardiogram completed and cardiology will pursue a conservative cardiac approach. Will start remdesivir per ID recommendation. 04/06: Krueger catheter replaced overnight d/t retention. Remains on Optiflow. Started remdesivir yesterday per ID recs and received Actemra Hospitalist Physical - Constitutional Vitals: Temp Pulse Resp BP Pulse Ox 98.3 F 76 12 131/59 90 04/06/21 10:15 04/06/21 12:00 04/06/21 12:00 04/06/21 12:00 04/06/21 12:00 General appearance: Present: no acute distress, obese, other - EENT Eyes: Present: PERRL ENT: hearing intact, clear oral mucosa, dentition normal - Neck Neck: Present: supple, normal ROM - Cardiovascular Rhythm: regular Heart Sounds: Present: S1 & S2 - Extremities Extremities: no ischemia, pulses intact, pulses symmetrical, No edema, normal temperature, normal color, Full ROM Peripheral Pulses: within normal limits - Abdominal General gastrointestinal: soft, non-tender, non-distended, normal bowel sounds - Integumentary Integumentary: Present: warm, dry - Psychiatric Psychiatric: appropriate mood/affect, cooperative - Neurologic Neurologic: CNII-XII intact, no focal deficits, moves all extremities - Allied Health Allied health notes reviewed: nursing, RT, social work HEART Score - HEART Score Troponin: Troponin T < 0.010 ng/mL (0.00-0.029) 04/04/21 17:53 Results - Labs CBC & Chem 7: 04/05/21 05:01 04/06/21 05:36 Labs: Laboratory Last Values WBC 9.3 K/mm3 (4.5-11.0) 04/05/21 05:01 RBC 3.97 M/mm3 (3.65-5.03) 04/05/21 05:01 Hgb 11.9 gm/dl (10.1-14.3) 04/05/21 05:01 Hct 38.2 % (30.3-42.9) D 04/05/21 05:01 MCV 96 fl (79-97) 04/05/21 05:01 MCH 30 pg (28-32) 04/05/21 05:01 MCHC 31 % (30-34) 04/05/21 05:01 RDW 14.2 % (13.2-15.2) 04/05/21 05:01 Plt Count 190 K/mm3 (140-440) 04/05/21 05:01 [place] % (Auto) Program Medical Director 04/04/21 17:53 Baso % (Auto) Program Medical Director 04/04/21 17:53 Add Manual Diff Complete 04/05/21 05:01 Total Counted 100 04/05/21 05:01 Seg Neutrophils % Program Medical Director 04/05/21 05:01 Seg Neuts % (Manual) 94.0 % (40.0-70.0) H 04/05/21 05:01 Band Neutrophils % 1.0 % 04/05/21 05:01 Lymphocytes % (Manual) 1.0 % (13.4-35.0) L 04/05/21 05:01 Monocytes % (Manual) 4.0 % (0.0-7.3) 04/05/21 05:01 Eosinophils % (Manual) 1.0 % (0.0-4.3) 04/04/21 17:53 Basophils % (Manual) 3.0 % (0.0-1.8) H 04/04/21 17:53 Nucleated RBC % Not Reportable 04/05/21 05:01 Seg Neutrophils # Man 8.7 K/mm3 (1.8-7.7) H 04/05/21 05:01 Band Neutrophils # 0.1 K/mm3 04/05/21 05:01 Lymphocytes # (Manual) 0.1 K/mm3 (1.2-5.4) L 04/05/21 05:01 Abs React Lymphs (Man) 0.0 K/mm3 04/05/21 05:01 Monocytes # (Manual) 0.4 K/mm3 (0.0-0.8) 04/05/21 05:01 Eosinophils # (Manual) 0.0 K/mm3 (0.0-0.4) 04/05/21 05:01 Basophils # (Manual) 0.0 K/mm3 (0.0-0.1) 04/05/21 05:01 Metamyelocytes # 0.0 K/mm3 04/05/21 05:01 Myelocytes # 0.0 K/mm3 04/05/21 05:01 Promyelocytes # 0.0 K/mm3 04/05/21 05:01 Blast Cells # 0.0 K/mm3 04/05/21 05:01 WBC Morphology Not Reportable 04/05/21 05:01 Hypersegmented Neuts Not Reportable 04/05/21 05:01 Hyposegmented Neuts Not Reportable 04/05/21 05:01 Hypogranular Neuts Not Reportable 04/05/21 05:01 Smudge Cells Not Reportable 04/05/21 05:01 Toxic Granulation Not Reportable 04/05/21 05:01 Toxic Vacuolation Not Reportable 04/05/21 05:01 Dohle Bodies Not Reportable 04/05/21 05:01 Pelger-Huet Anomaly Not Reportable 04/05/21 05:01 Bronson Rods Not Reportable 04/05/21 05:01 Platelet Estimate Consistent w auto 04/05/21 05:01 Clumped Platelets Not Reportable 04/05/21 05:01 Plt Clumps, EDTA Not Reportable 04/05/21 05:01 Large Platelets Not Reportable 04/05/21 05:01 Giant Platelets Not Reportable 04/05/21 05:01 Platelet Satelliting Not Reportable 04/05/21 05:01 Plt Morphology Comment Not Reportable 04/05/21 05:01 RBC Morphology Not Reportable 04/05/21 05:01 Dimorphic RBCs Not Reportable 04/05/21 05:01 Polychromasia Not Reportable 04/05/21 05:01 Hypochromasia Not Reportable 04/05/21 05:01 Poikilocytosis Not Reportable 04/05/21 05:01 Anisocytosis 1+ 04/05/21 05:01 Microcytosis Not Reportable 04/05/21 05:01 Macrocytosis Not Reportable 04/05/21 05:01 Spherocytes Not Reportable 04/05/21 05:01 Pappenheimer Bodies Not Reportable 04/05/21 05:01 Sickle Cells Not Reportable 04/05/21 05:01 Target Cells Not Reportable 04/05/21 05:01 Tear Drop Cells Not Reportable 04/05/21 05:01 Ovalocytes Not Reportable 04/05/21 05:01 Helmet Cells Not Reportable 04/05/21 05:01 [place] Bodies Not Reportable 04/05/21 05:01 [place] Rings Not Reportable 04/05/21 05:01 [place]sequ[place] Cells Not Reportable 04/05/21 05:01 Bite Cells Not Reportable 04/05/21 05:01 Crenated Cell Not Reportable 04/05/21 05:01 Elliptocytes Not Reportable 04/05/21 05:01 Acanthocytes (Spur) Not Reportable 04/05/21 05:01 Rouleaux Not Reportable 04/05/21 05:01 Hemoglobin C Crystals Not Reportable 04/05/21 05:01 Schistocytes Not Reportable 04/05/21 05:01 Malaria parasites Not Reportable 04/05/21 05:01 Jesus Alberto Bodies Not Reportable 04/05/21 05:01 Hem Pathologist Commnt No 04/05/21 05:01 PT 15.0 Sec. (12.2-14.9) H 04/04/21 17:53 INR 1.06 (0.87-1.13) 04/04/21 17:53 D-Dimer 283.80 ng/mlDDU (0-234) H 04/04/21 20:30 ABG pH 7.342 (7.320-7.450) 04/05/21 08:00 POC ABG pCO2 76.0 mmHg (32.0-48.0) H 04/05/21 08:00 ABG pCO2 86.8 mm Hg 04/04/21 Unknown POC ABG pO2 66.9 mmHg (83-108) L 04/05/21 08:00 ABG pO2 125.0 mm Hg (80.0-90.0) H 04/04/21 Unknown POC ABG HCO3 40.3 04/05/21 08:00 ABG HCO3 38.7 mmol/L (20.0-26.0) H 04/04/21 Unknown ABG O2 Saturation 93.5 (0-100) 04/05/21 08:00 ABG O2 Content 17.1 (0.0-44) 04/04/21 Unknown POC ABG Base Excess 11.3 04/05/21 08:00 ABG Base Excess 8.6 mmol/L (-2.0-3.0) H 04/04/21 Unknown ABG Hemoglobin 13.4 (12.0-17.5) 04/05/21 08:00 ABG Oxyhemoglobin 92.2 (94-98) L 04/05/21 08:00 ABG Carboxyhemoglobin 2.4 % (0.0-5.0) 04/04/21 Unknown ABG Methemoglobin 0.3 (0.0-1.5) 04/05/21 08:00 ABG Sodium 134.3 mmol/L (136.0-145.0) L 04/05/21 08:00 ABG Potassium 4.5 mmol/L (3.40-4.50) 04/05/21 08:00 ABG Chloride 91.0 mmol/L (98-107) L 04/05/21 08:00 ABG Glucose 156 mg/dL (65-95) H 04/05/21 08:00 Oxyhemoglobin 94.9 % (95.0-99.0) L 04/04/21 Unknown Carboxyhemoglobin 1.1 (0.5-1.5) 04/05/21 08:00 FiO2 80 % 04/04/21 Unknown FiO2 % 50.0 04/05/21 08:00 Sodium 139 mmol/L (137-145) 04/06/21 05:36 Potassium 4.3 mmol/L (3.6-5.0) 04/06/21 05:36 Chloride 88.5 mmol/L (98-107) L 04/06/21 05:36 Carbon Dioxide 37 mmol/L (22-30) H 04/06/21 05:36 Anion Gap 18 mmol/L 04/06/21 05:36 BUN 26 mg/dL (7-17) H 04/06/21 05:36 Creatinine 0.6 mg/dL (0.6-1.2) 04/06/21 05:36 Estimated GFR > 60 ml/min 04/06/21 05:36 BUN/Creatinine Ratio 43 % 04/06/21 05:36 Glucose 132 mg/dL (65-100) H 04/06/21 05:36 POC Glucose 142 mg/dL (70-105) H 04/06/21 11:52 Calcium 9.1 mg/dL (8.4-10.2) 04/06/21 05:36 Magnesium 2.90 mg/dL (1.7-2.3) H 04/04/21 17:53 Ferritin 236.2 ng/mL (10.0-200.0) H 04/04/21 20:30 Total Bilirubin 0.60 mg/dL (0.1-1.2) 04/06/21 05:36 AST 74 units/L (5-40) H 04/06/21 05:36 ALT 31 units/L (7-56) 04/06/21 05:36 Alkaline Phosphatase 50 units/L (35-129) 04/06/21 05:36 Lactate Dehydrogenase 434 units/L (91-180) H 04/04/21 20:30 Troponin T < 0.010 ng/mL (0.00-0.029) 04/04/21 17:53 C-Reactive Protein 7.90 mg/dL (0.00-1.30) H 04/04/21 20:30 NT-Pro-B Natriuret Pep 1911 pg/mL (0-450) H 04/04/21 17:53 Total Protein 7.2 g/dL (6.3-8.2) 04/06/21 05:36 Albumin 4.0 g/dL (3.9-5) 04/06/21 05:36 Albumin/Globulin Ratio 1.3 % 04/06/21 05:36 Procalcitonin 0.07 ng/mL (<0.15) 04/04/21 20:30 Arterial Blood Glucose 156 mg/dL (65-95) H 04/05/21 08:00 Arterial Blood Ionized Calcium 4.6 mg/dL (4.6-5.3) 04/05/21 08:00 Urine Color Straw (Yellow) 04/06/21 11:05 Urine Turbidity Clear (Clear) 04/06/21 11:05 Urine pH 5.0 (5.0-7.0) 04/06/21 11:05 Ur Specific [place] 1.006 (1.003-1.030) 04/06/21 11:05 Urine Protein <15 mg/dl mg/dL (Negative) 04/06/21 11:05 Urine Glucose (UA) Neg mg/dL (Negative) 04/06/21 11:05 Urine Ketones Neg mg/dL (Negative) 04/06/21 11:05 Urine Blood Mod (Negative) 04/06/21 11:05 Urine Nitrite Neg (Negative) 04/06/21 11:05 Urine Bilirubin Neg (Negative) 04/06/21 11:05 Urine Urobilinogen < 2.0 mg/dL (<2.0) 04/06/21 11:05 Ur Leukocyte Esterase Neg (Negative) 04/06/21 11:05 Urine WBC (Auto) 1.0 /HPF (0.0-6.0) 04/06/21 11:05 Urine RBC (Auto) 13.0 /HPF (0.0-6.0) 04/06/21 11:05 U Epithel Cells (Auto) 6.0 /HPF (0-13.0) 04/06/21 11:05 Urine Mucus Few /HPF 04/06/21 11:05 Coronavirus (PCR) Positive (Negative) A 04/05/21 Unknown Krueger/IV: Voiding Method Indwelling Catheter Active Medications - Current Medications Current Medications: Generic Name Dose Route Start Last Admin Trade Name Freq PRN Reason Stop Dose Admin Acetaminophen 650 mg 04/04/21 21:56 Acetaminophen 325 Mg Tab PO Q4H PRN Pain MILD(1-3)/Fever >100.5/MONAE Albuterol 2.5 mg 04/04/21 21:56 Albuterol 2.5 Mg/3 Ml Nebu IH Q4HRT PRN Shortness Of Breath Albuterol/Ipratropium 1 ampul 04/05/21 02:00 04/06/21 08:37 Ipratropium/Albuterol Sulfate 3 Ml Ampul.Neb IH 1 ampul Q6HRT JULIO Administration Azithromycin 500 mg 04/06/21 22:00 Azithromycin 250 Mg Tab PO 04/09/21 22:01 2200 [facility] Protocol Budesonide 0.5 mg 04/05/21 10:45 04/06/21 08:37 Budesonide 0.5 Mg/2 Ml Nebu IH 0.5 mg Q12HRT JULIO Administration Dextrose 50 ml 04/05/21 17:22 Dextrose 50% In Water (25gm) 50 Ml Syringe IV Q30MIN PRN Hypoglycemia Protocol Enoxaparin Sodium 40 mg 04/06/21 22:00 Enoxaparin 40 Mg/0.4 Ml Inj SUB-Q BID [facility] Protocol Famotidine 20 mg 04/04/21 22:00 04/06/21 10:10 Famotidine 20 Mg Tab PO 20 mg BID JULIO Administration Furosemide 40 mg 04/05/21 10:00 04/06/21 10:14 Furosemide 40 Mg/4 Ml Inj IV 40 mg QDAY JULIO Administration Hydralazine HCl 10 mg 04/04/21 22:13 04/04/21 22:50 Hydralazine 20 Mg/1 Ml Inj IV 10 mg Q6H PRN Administration Blood Pressure Hydromorphone HCl 0.5 mg 04/04/21 21:56 04/06/21 10:12 Hydromorphone 1 Mg/1 Ml Inj IV 0.5 mg Q3H PRN Administration Pain , Severe (7-10) REMDESIVIR 100 mg/ Sodium 250 mls @ 500 mls/hr 04/06/21 21:00 Chloride IV 04/09/21 21:29 Q24HR@2100 [facility] Insulin Human Regular 0 units 04/05/21 22:00 04/06/21 11:55 Insulin Regular, Human 100 Units/1 Ml SUB-Q Not Given ACHS [facility] Protocol Methylprednisolone Sodium Succinate 40 mg 04/05/21 00:00 04/06/21 13:34 Methylprednisolone Sod Succinate 40 Mg/1 Ml Inj IV 40 mg Q6HR JULIO Administration Montelukast Sodium 10 mg 04/04/21 22:00 04/05/21 22:35 Montelukast 10 Mg Tab PO 10 mg QHS JULIO Administration Ondansetron HCl 4 mg 04/04/21 21:56 Ondansetron 4 Mg/2 Ml Inj IV Q8H PRN Nausea And Vomiting Oxycodone/Acetaminophen 1 tab 04/04/21 21:56 Oxycodone /Acetaminophen 5-325mg Tab PO Q6H PRN Pain, Moderate (4-6) Senna 17.2 mg 04/06/21 22:00 Sennosides 8.6 Mg Tab PO QHS JULIO Sodium Chloride 10 ml 04/04/21 22:00 04/06/21 10:12 Sodium Chloride 0.9% 10 Ml Flush Syringe IV 10 ml BID JULIO Administration Sodium Chloride 10 ml 04/04/21 21:56 Sodium Chloride 0.9% 10 Ml Flush Syringe IV PRN PRN LINE FLUSH Sodium Chloride 50 ml 04/06/21 22:00 Sodium Chloride 0.9% 50 Ml Ivpb IV 04/09/21 22:01 Q24H JULIO <PATY AMEZQUITA - Last Filed: 04/09/21 07:23> Assessment and Plan Assessment and plan: I saw and evaluated the patient. Discussed with the nurse practitioner and agree with their findings and plan as documented in this note. Hospitalist Physical - Constitutional Vitals: Temp Pulse Resp BP Pulse Ox 98.4 F 54 L 18 116/49 98 04/09/21 06:12 04/09/21 06:12 04/09/21 06:12 04/09/21 06:12 04/09/21 06:12 HEART Score - HEART Score Troponin: Troponin T < 0.010 ng/mL (0.00-0.029) 04/04/21 17:53 Results - Labs CBC & Chem 7: 04/07/21 07:00 04/08/21 05:25 Labs: Laboratory Last Values WBC 5.5 K/mm3 (4.5-11.0) 04/07/21 07:00 RBC 4.03 M/mm3 (3.65-5.03) 04/07/21 07:00 Hgb 12.0 gm/dl (10.1-14.3) 04/07/21 07:00 Hct 39.2 % (30.3-42.9) 04/07/21 07:00 MCV 97 fl (79-97) 04/07/21 07:00 MCH 30 pg (28-32) 04/07/21 07:00 MCHC 31 % (30-34) 04/07/21 07:00 RDW 14.0 % (13.2-15.2) 04/07/21 07:00 Plt Count 216 K/mm3 (140-440) 04/07/21 07:00 Lymph % (Auto) 7.5 % (13.4-35.0) L 04/07/21 07:00 [place] % (Auto) 4.2 % (0.0-7.3) 04/07/21 07:00 Eos % (Auto) 0.0 % (0.0-4.3) 04/07/21 07:00 Baso % (Auto) 0.2 % (0.0-1.8) 04/07/21 07:00 Lymph # (Auto) 0.4 K/mm3 (1.2-5.4) L 04/07/21 07:00 [place] # (Auto) 0.2 K/mm3 (0.0-0.8) 04/07/21 07:00 Eos # (Auto) 0.0 K/mm3 (0.0-0.4) 04/07/21 07:00 Baso # (Auto) 0.0 K/mm3 (0.0-0.1) 04/07/21 07:00 Add Manual Diff Complete 04/05/21 05:01 Total Counted 100 04/05/21 05:01 Seg Neutrophils % 88.1 % (40.0-70.0) H 04/07/21 07:00 Seg Neuts % (Manual) 94.0 % (40.0-70.0) H 04/05/21 05:01 Band Neutrophils % 1.0 % 04/05/21 05:01 Lymphocytes % (Manual) 1.0 % (13.4-35.0) L 04/05/21 05:01 Monocytes % (Manual) 4.0 % (0.0-7.3) 04/05/21 05:01 Eosinophils % (Manual) 1.0 % (0.0-4.3) 04/04/21 17:53 Basophils % (Manual) 3.0 % (0.0-1.8) H 04/04/21 17:53 Nucleated RBC % Not Reportable 04/05/21 05:01 Seg Neutrophils # 4.8 K/mm3 (1.8-7.7) 04/07/21 07:00 Seg Neutrophils # Man 8.7 K/mm3 (1.8-7.7) H 04/05/21 05:01 Band Neutrophils # 0.1 K/mm3 04/05/21 05:01 Lymphocytes # (Manual) 0.1 K/mm3 (1.2-5.4) L 04/05/21 05:01 Abs React Lymphs (Man) 0.0 K/mm3 04/05/21 05:01 Monocytes # (Manual) 0.4 K/mm3 (0.0-0.8) 04/05/21 05:01 Eosinophils # (Manual) 0.0 K/mm3 (0.0-0.4) 04/05/21 05:01 Basophils # (Manual) 0.0 K/mm3 (0.0-0.1) 04/05/21 05:01 Metamyelocytes # 0.0 K/mm3 04/05/21 05:01 Myelocytes # 0.0 K/mm3 04/05/21 05:01 Promyelocytes # 0.0 K/mm3 04/05/21 05:01 Blast Cells # 0.0 K/mm3 04/05/21 05:01 WBC Morphology Not Reportable 04/05/21 05:01 Hypersegmented Neuts Not Reportable 04/05/21 05:01 Hyposegmented Neuts Not Reportable 04/05/21 05:01 Hypogranular Neuts Not Reportable 04/05/21 05:01 Smudge Cells Not Reportable 04/05/21 05:01 Toxic Granulation Not Reportable 04/05/21 05:01 Toxic Vacuolation Not Reportable 04/05/21 05:01 Dohle Bodies Not Reportable 04/05/21 05:01 Pelger-Huet Anomaly Not Reportable 04/05/21 05:01 Bronson Rods Not Reportable 04/05/21 05:01 Platelet Estimate Consistent w auto 04/05/21 05:01 Clumped Platelets Not Reportable 04/05/21 05:01 Plt Clumps, EDTA Not Reportable 04/05/21 05:01 Large Platelets Not Reportable 04/05/21 05:01 Giant Platelets Not Reportable 04/05/21 05:01 Platelet Satelliting Not Reportable 04/05/21 05:01 Plt Morphology Comment Not Reportable 04/05/21 05:01 RBC Morphology Not Reportable 04/05/21 05:01 Dimorphic RBCs Not Reportable 04/05/21 05:01 Polychromasia Not Reportable 04/05/21 05:01 Hypochromasia Not Reportable 04/05/21 05:01 Poikilocytosis Not Reportable 04/05/21 05:01 Anisocytosis 1+ 04/05/21 05:01 Microcytosis Not Reportable 04/05/21 05:01 Macrocytosis Not Reportable 04/05/21 05:01 Spherocytes Not Reportable 04/05/21 05:01 Pappenheimer Bodies Not Reportable 04/05/21 05:01 Sickle Cells Not Reportable 04/05/21 05:01 Target Cells Not Reportable 04/05/21 05:01 Tear Drop Cells Not Reportable 04/05/21 05:01 Ovalocytes Not Reportable 04/05/21 05:01 Helmet Cells Not Reportable 04/05/21 05:01 [place] Bodies Not Reportable 04/05/21 05:01 [place] Rings Not Reportable 04/05/21 05:01 [place] Cells Not Reportable 04/05/21 05:01 Bite Cells Not Reportable 04/05/21 05:01 Crenated Cell Not Reportable 04/05/21 05:01 Elliptocytes Not Reportable 04/05/21 05:01 Acanthocytes (Spur) Not Reportable 04/05/21 05:01 Rouleaux Not Reportable 04/05/21 05:01 Hemoglobin C Crystals Not Reportable 04/05/21 05:01 Schistocytes Not Reportable 04/05/21 05:01 Malaria parasites Not Reportable 04/05/21 05:01 Jesus Alberto Bodies Not Reportable 04/05/21 05:01 Hem Pathologist Commnt No 04/05/21 05:01 PT 15.0 Sec. (12.2-14.9) H 04/04/21 17:53 INR 1.06 (0.87-1.13) 04/04/21 17:53 D-Dimer 205.77 ng/mlDDU (0-234) 04/09/21 06:21 ABG pH 7.342 (7.320-7.450) 04/05/21 08:00 POC ABG pCO2 76.0 mmHg (32.0-48.0) H 04/05/21 08:00 ABG pCO2 86.8 mm Hg 04/04/21 Unknown POC ABG pO2 66.9 mmHg (83-108) L 04/05/21 08:00 ABG pO2 125.0 mm Hg (80.0-90.0) H 04/04/21 Unknown POC ABG HCO3 40.3 04/05/21 08:00 ABG HCO3 38.7 mmol/L (20.0-26.0) H 04/04/21 Unknown ABG O2 Saturation 93.5 (0-100) 04/05/21 08:00 ABG O2 Content 17.1 (0.0-44) 04/04/21 Unknown POC ABG Base Excess 11.3 04/05/21 08:00 ABG Base Excess 8.6 mmol/L (-2.0-3.0) H 04/04/21 Unknown ABG Hemoglobin 13.4 (12.0-17.5) 04/05/21 08:00 ABG Oxyhemoglobin 92.2 (94-98) L 04/05/21 08:00 ABG Carboxyhemoglobin 2.4 % (0.0-5.0) 04/04/21 Unknown ABG Methemoglobin 0.3 (0.0-1.5) 04/05/21 08:00 ABG Sodium 134.3 mmol/L (136.0-145.0) L 04/05/21 08:00 ABG Potassium 4.5 mmol/L (3.40-4.50) 04/05/21 08:00 ABG Chloride 91.0 mmol/L (98-107) L 04/05/21 08:00 ABG Glucose 156 mg/dL (65-95) H 04/05/21 08:00 Oxyhemoglobin 94.9 % (95.0-99.0) L 04/04/21 Unknown Carboxyhemoglobin 1.1 (0.5-1.5) 04/05/21 08:00 FiO2 80 % 04/04/21 Unknown FiO2 % 50.0 04/05/21 08:00 Sodium 140 mmol/L (137-145) 04/08/21 05:25 Potassium 4.0 mmol/L (3.6-5.0) 04/08/21 05:25 Chloride 91.2 mmol/L (98-107) L 04/08/21 05:25 Carbon Dioxide 40 mmol/L (22-30) H 04/08/21 05:25 Anion Gap 13 mmol/L 04/08/21 05:25 BUN 37 mg/dL (7-17) H 04/08/21 05:25 Creatinine 0.7 mg/dL (0.6-1.2) 04/08/21 05:25 Estimated GFR > 60 ml/min 04/08/21 05:25 BUN/Creatinine Ratio 53 % 04/08/21 05:25 Glucose 169 mg/dL (65-100) H 04/08/21 05:25 POC Glucose 158 mg/dL (70-105) H 04/08/21 21:06 Calcium 9.4 mg/dL (8.4-10.2) 04/08/21 05:25 Magnesium 2.90 mg/dL (1.7-2.3) H 04/04/21 17:53 Ferritin 147.4 ng/mL (10.0-200.0) 04/09/21 06:21 Total Bilirubin 0.80 mg/dL (0.1-1.2) 04/08/21 05:25 AST 47 units/L (5-40) H 04/08/21 05:25 ALT 36 units/L (7-56) 04/08/21 05:25 Alkaline Phosphatase 46 units/L (35-129) 04/08/21 05:25 Lactate Dehydrogenase 248 units/L (91-180) H 04/09/21 06:21 Troponin T < 0.010 ng/mL (0.00-0.029) 04/04/21 17:53 C-Reactive Protein 0.80 mg/dL (0.00-1.30) 04/09/21 06:21 NT-Pro-B Natriuret Pep 1911 pg/mL (0-450) H 04/04/21 17:53 Total Protein 6.5 g/dL (6.3-8.2) 04/08/21 05:25 Albumin 3.7 g/dL (3.9-5) L 04/08/21 05:25 Albumin/Globulin Ratio 1.3 % 04/08/21 05:25 Procalcitonin 0.07 ng/mL (<0.15) 04/04/21 20:30 TSH 0.031 mlU/mL (0.270-4.200) L 04/08/21 13:30 Free T4 1.18 ng/dL (0.76-1.46) 04/08/21 13:30 Arterial Blood Glucose 156 mg/dL (65-95) H 04/05/21 08:00 Arterial Blood Ionized Calcium 4.6 mg/dL (4.6-5.3) 04/05/21 08:00 Urine Color Straw (Yellow) 04/06/21 11:05 Urine Turbidity Clear (Clear) 04/06/21 11:05 Urine pH 5.0 (5.0-7.0) 04/06/21 11:05 Ur Specific [place] 1.006 (1.003-1.030) 04/06/21 11:05 Urine Protein <15 mg/dl mg/dL (Negative) 04/06/21 11:05 Urine Glucose (UA) Neg mg/dL (Negative) 04/06/21 11:05 Urine Ketones Neg mg/dL (Negative) 04/06/21 11:05 Urine Blood Mod (Negative) 04/06/21 11:05 Urine Nitrite Neg (Negative) 04/06/21 11:05 Urine Bilirubin Neg (Negative) 04/06/21 11:05 Urine Urobilinogen < 2.0 mg/dL (<2.0) 04/06/21 11:05 Ur Leukocyte Esterase Neg (Negative) 04/06/21 11:05 Urine WBC (Auto) 1.0 /HPF (0.0-6.0) 04/06/21 11:05 Urine RBC (Auto) 13.0 /HPF (0.0-6.0) 04/06/21 11:05 U Epithel Cells (Auto) 6.0 /HPF (0-13.0) 04/06/21 11:05 Urine Mucus Few /HPF 04/06/21 11:05 Coronavirus (PCR) Positive (Negative) A 04/05/21 Unknown Microbiology: Microbiology 04/06/21 11:05 Urine,Catheterized - Indwelling Catheter Urine Culture - Final NO GROWTH AFTER 48 HOURS Krueger/IV: Voiding Method Indwelling Catheter Active Medications - Current Medications Current Medications: Generic Name Dose Route Start Last Admin Trade Name Freq PRN Reason Stop Dose Admin Acetaminophen 650 mg 04/04/21 21:56 Acetaminophen 325 Mg Tab PO Q4H PRN Pain MILD(1-3)/Fever >100.5/MONAE Albuterol 2.5 mg 04/04/21 21:56 04/08/21 14:50 Albuterol 2.5 Mg/3 Ml Nebu IH 2.5 mg Q4HRT PRN Administration Shortness Of Breath Amlodipine Besylate 10 mg 04/08/21 13:00 04/08/21 14:55 Amlodipine 10 Mg Tab PO 10 mg QDAY JULIO Administration Azithromycin 500 mg 04/06/21 22:00 04/08/21 22:29 Azithromycin 250 Mg Tab PO 04/09/21 22:01 500 mg 2200 JULIO Administration Protocol Dextrose 50 ml 04/05/21 17:22 Dextrose 50% In Water (25gm) 50 Ml Syringe IV Q30MIN PRN Hypoglycemia Protocol Enoxaparin Sodium 40 mg 04/06/21 22:00 04/08/21 22:31 Enoxaparin 40 Mg/0.4 Ml Inj SUB-Q 40 mg BID JULIO Administration Protocol Famotidine 20 mg 04/04/21 22:00 04/08/21 22:30 Famotidine 20 Mg Tab PO 20 mg BID JULIO Administration Furosemide 40 mg 04/05/21 10:00 04/08/21 09:16 Furosemide 40 Mg/4 Ml Inj IV 40 mg QDAY JULIO Administration Hydralazine HCl 10 mg 04/04/21 22:13 04/04/21 22:50 Hydralazine 20 Mg/1 Ml Inj IV 10 mg Q6H PRN Administration Blood Pressure Hydromorphone HCl 0.5 mg 04/04/21 21:56 04/08/21 09:17 Hydromorphone 1 Mg/1 Ml Inj IV 0.5 mg Q3H PRN Administration Pain , Severe (7-10) REMDESIVIR 100 mg/ Sodium 250 mls @ 500 mls/hr 04/06/21 21:00 04/08/21 22:31 Chloride IV 04/09/21 21:29 250 mls/hr Q24HR@2100 JULIO Administration Insulin Human Regular 0 units 04/05/21 22:00 04/08/21 22:37 Insulin Regular, Human 100 Units/1 Ml SUB-Q 1 units ACHS JULIO Administration Protocol Ketorolac Tromethamine 15 mg 04/07/21 12:00 04/08/21 22:49 Ketorolac 30 Mg/1 Ml Inj IV 04/12/21 11:59 15 mg Q8H PRN Administration Pain, moderate (4-6) Methylprednisolone Sodium Succinate 40 mg 04/05/21 00:00 04/09/21 06:26 Methylprednisolone Sod Succinate 40 Mg/1 Ml Inj IV 40 mg Q6HR JULIO Administration Montelukast Sodium 10 mg 04/04/21 22:00 04/08/21 22:35 Montelukast 10 Mg Tab PO 10 mg QHS JULIO Administration Ondansetron HCl 4 mg 04/04/21 21:56 Ondansetron 4 Mg/2 Ml Inj IV Q8H PRN Nausea And Vomiting Senna 17.2 mg 04/06/21 22:00 04/08/21 22:31 Sennosides 8.6 Mg Tab PO 17.2 mg QHS JULIO Administration Sodium Chloride 10 ml 04/04/21 22:00 04/08/21 22:30 Sodium Chloride 0.9% 10 Ml Flush Syringe IV 10 ml BID JULIO Administration Sodium Chloride 10 ml 04/04/21 21:56 Sodium Chloride 0.9% 10 Ml Flush Syringe IV PRN PRN LINE FLUSH Sodium Chloride 50 ml 04/06/21 22:00 04/08/21 22:32 Sodium Chloride 0.9% 50 Ml Ivpb IV 04/09/21 22:01 50 ml Q24H JULIO Administration Tramadol HCl 50 mg 04/08/21 09:40 04/08/21 14:56 Tramadol 50 Mg Tab PO 50 mg Q6H PRN Administration Pain, Moderate (4-6)
--- NOTE | 2021-04-06 14:03 | Progress Note ---
Assessment and Plan 50 y/o obese female with some form of obstructive lung disease admitted with acute hypoxic hypercapnic respiratory failure. 04/06/21: Stop Pulmicort. Puffers only. Lasix given pulmonary HTN seen on echo. Continue steroids. Needs to prone. Stable for transfer to COVID floor. 1. Wean Bipap as tolerated 2. Agree with steroids at current dosing 3. Added BID pulmicort 4. Agree with diuresis. 5. Needs echo 6. Will continue to follow. Subjective Date of service: 04/06/21 Interval history: Patient COVID positive. Got remdesivir and actemra on yesterday. On steroids. Down to HFNC with decent sats. Objective Vital Signs - 12hr 04/06/21 04/06/21 04/06/21 02:11 02:21 02:30 Temperature Pulse Rate 73 71 Pulse Rate [ Anterior Left] Pulse Rate [ 67 Bilateral Throughout] Respiratory 17 18 Rate Respiratory Rate [Anterior Left] Respiratory 12 Rate [Bilateral Throughout] Blood Pressure 136/76 136/76 O2 Sat by Pulse 94 94 Oximetry 04/06/21 04/06/21 04/06/21 02:31 02:41 02:46 Temperature Pulse Rate 69 65 Pulse Rate [ Anterior Left] Pulse Rate [ 69 Bilateral Throughout] Respiratory 13 9 L Rate Respiratory Rate [Anterior Left] Respiratory 15 Rate [Bilateral Throughout] Blood Pressure 136/76 136/76 O2 Sat by Pulse 96 97 Oximetry 04/06/21 04/06/21 04/06/21 02:51 03:00 03:11 Temperature Pulse Rate 69 61 63 Pulse Rate [ Anterior Left] Pulse Rate [ Bilateral Throughout] Respiratory 10 L 12 18 Rate Respiratory Rate [Anterior Left] Respiratory Rate [Bilateral Throughout] Blood Pressure 136/76 126/60 126/60 O2 Sat by Pulse 96 92 94 Oximetry 04/06/21 04/06/21 04/06/21 03:21 03:31 03:41 Temperature Pulse Rate 64 Pulse Rate [ Anterior Left] Pulse Rate [ Bilateral Throughout] Respiratory 17 Rate Respiratory Rate [Anterior Left] Respiratory Rate [Bilateral Throughout] Blood Pressure 126/60 126/60 126/60 O2 Sat by Pulse 94 96 95 Oximetry 04/06/21 04/06/21 04/06/21 03:51 04:00 04:11 Temperature 98.2 F Pulse Rate 56 L 72 Pulse Rate [ Anterior Left] Pulse Rate [ Bilateral Throughout] Respiratory 11 L 11 L Rate Respiratory Rate [Anterior Left] Respiratory Rate [Bilateral Throughout] Blood Pressure 126/60 125/55 125/55 O2 Sat by Pulse 95 95 95 Oximetry 04/06/21 04/06/21 04/06/21 04:21 04:31 04:41 Temperature Pulse Rate 78 71 73 Pulse Rate [ Anterior Left] Pulse Rate [ Bilateral Throughout] Respiratory 17 14 14 Rate Respiratory Rate [Anterior Left] Respiratory Rate [Bilateral Throughout] Blood Pressure 125/55 125/55 125/55 O2 Sat by Pulse 93 92 92 Oximetry 04/06/21 04/06/21 04/06/21 04:51 05:00 05:11 Temperature Pulse Rate 68 70 68 Pulse Rate [ Anterior Left] Pulse Rate [ Bilateral Throughout] Respiratory 15 16 15 Rate Respiratory Rate [Anterior Left] Respiratory Rate [Bilateral Throughout] Blood Pressure 125/55 122/70 122/70 O2 Sat by Pulse 93 92 93 Oximetry 04/06/21 04/06/21 04/06/21 05:21 05:31 05:41 Temperature Pulse Rate 67 70 71 Pulse Rate [ Anterior Left] Pulse Rate [ Bilateral Throughout] Respiratory 14 15 15 Rate Respiratory Rate [Anterior Left] Respiratory Rate [Bilateral Throughout] Blood Pressure 122/70 122/70 122/70 O2 Sat by Pulse 94 94 95 Oximetry 04/06/21 04/06/21 04/06/21 05:50 05:51 06:00 Temperature Pulse Rate 67 64 Pulse Rate [ Anterior Left] Pulse Rate [ Bilateral Throughout] Respiratory 13 15 Rate Respiratory Rate [Anterior Left] Respiratory Rate [Bilateral Throughout] Blood Pressure 122/70 132/67 O2 Sat by Pulse 95 95 92 Oximetry 04/06/21 04/06/21 04/06/21 06:11 06:21 06:31 Temperature Pulse Rate 72 69 71 Pulse Rate [ Anterior Left] Pulse Rate [ Bilateral Throughout] Respiratory 15 16 13 Rate Respiratory Rate [Anterior Left] Respiratory Rate [Bilateral Throughout] Blood Pressure 132/67 132/67 132/67 O2 Sat by Pulse 95 95 95 Oximetry 04/06/21 04/06/21 04/06/21 06:41 06:51 07:00 Temperature Pulse Rate 70 65 62 Pulse Rate [ Anterior Left] Pulse Rate [ Bilateral Throughout] Respiratory 16 15 16 Rate Respiratory Rate [Anterior Left] Respiratory Rate [Bilateral Throughout] Blood Pressure 132/67 132/67 118/63 O2 Sat by Pulse 96 95 93 Oximetry 04/06/21 04/06/21 04/06/21 07:11 07:21 07:31 Temperature Pulse Rate 68 65 70 Pulse Rate [ Anterior Left] Pulse Rate [ Bilateral Throughout] Respiratory 15 16 16 Rate Respiratory Rate [Anterior Left] Respiratory Rate [Bilateral Throughout] Blood Pressure 118/63 118/63 118/63 O2 Sat by Pulse 96 95 96 Oximetry 04/06/21 04/06/21 04/06/21 07:41 07:51 08:00 Temperature Pulse Rate 70 69 63 Pulse Rate [ Anterior Left] Pulse Rate [ Bilateral Throughout] Respiratory 15 14 19 Rate Respiratory Rate [Anterior Left] Respiratory Rate [Bilateral Throughout] Blood Pressure 118/63 118/63 122/72 O2 Sat by Pulse 96 95 92 Oximetry 04/06/21 04/06/21 04/06/21 08:11 08:21 08:31 Temperature Pulse Rate 98 H 79 75 Pulse Rate [ Anterior Left] Pulse Rate [ Bilateral Throughout] Respiratory 15 11 L 21 Rate Respiratory Rate [Anterior Left] Respiratory Rate [Bilateral Throughout] Blood Pressure 122/72 122/72 122/72 O2 Sat by Pulse 89 93 94 Oximetry 04/06/21 04/06/21 04/06/21 08:38 08:41 08:43 Temperature Pulse Rate 76 Pulse Rate [ 74 Anterior Left] Pulse Rate [ Bilateral Throughout] Respiratory 13 Rate Respiratory 20 Rate [Anterior Left] Respiratory Rate [Bilateral Throughout] Blood Pressure 122/72 O2 Sat by Pulse 98 95 Oximetry 04/06/21 04/06/21 04/06/21 08:51 09:00 09:11 Temperature Pulse Rate 81 82 83 Pulse Rate [ Anterior Left] Pulse Rate [ Bilateral Throughout] Respiratory 17 14 21 Rate Respiratory Rate [Anterior Left] Respiratory Rate [Bilateral Throughout] Blood Pressure 122/72 132/70 132/70 O2 Sat by Pulse 93 90 90 Oximetry 04/06/21 04/06/21 04/06/21 09:21 09:31 09:41 Temperature Pulse Rate 82 89 80 Pulse Rate [ Anterior Left] Pulse Rate [ Bilateral Throughout] Respiratory 20 19 17 Rate Respiratory Rate [Anterior Left] Respiratory Rate [Bilateral Throughout] Blood Pressure 132/70 132/70 122/72 O2 Sat by Pulse 91 91 91 Oximetry 04/06/21 04/06/21 04/06/21 09:51 10:00 10:11 Temperature Pulse Rate 77 76 87 Pulse Rate [ Anterior Left] Pulse Rate [ Bilateral Throughout] Respiratory 19 20 14 Rate Respiratory Rate [Anterior Left] Respiratory Rate [Bilateral Throughout] Blood Pressure 122/72 131/63 131/63 O2 Sat by Pulse 91 90 91 Oximetry 04/06/21 04/06/21 04/06/21 10:15 10:21 10:31 Temperature 98.3 F Pulse Rate 74 67 Pulse Rate [ Anterior Left] Pulse Rate [ Bilateral Throughout] Respiratory 16 16 Rate Respiratory Rate [Anterior Left] Respiratory Rate [Bilateral Throughout] Blood Pressure 131/63 131/63 O2 Sat by Pulse 92 93 Oximetry 04/06/21 04/06/21 04/06/21 10:41 10:51 11:00 Temperature Pulse Rate 69 70 71 Pulse Rate [ Anterior Left] Pulse Rate [ Bilateral Throughout] Respiratory 16 17 20 Rate Respiratory Rate [Anterior Left] Respiratory Rate [Bilateral Throughout] Blood Pressure 131/63 131/63 139/62 O2 Sat by Pulse 92 93 93 Oximetry 04/06/21 04/06/21 04/06/21 11:11 11:21 11:31 Temperature Pulse Rate 68 69 70 Pulse Rate [ Anterior Left] Pulse Rate [ Bilateral Throughout] Respiratory 15 16 17 Rate Respiratory Rate [Anterior Left] Respiratory Rate [Bilateral Throughout] Blood Pressure 131/63 131/63 131/63 O2 Sat by Pulse 92 92 93 Oximetry 04/06/21 04/06/21 04/06/21 11:41 11:51 12:00 Temperature Pulse Rate 70 75 76 Pulse Rate [ Anterior Left] Pulse Rate [ Bilateral Throughout] Respiratory 16 15 12 Rate Respiratory Rate [Anterior Left] Respiratory Rate [Bilateral Throughout] Blood Pressure 131/63 131/63 131/59 O2 Sat by Pulse 93 95 90 Oximetry Constitutional: no acute distress, alert ENT: other (full face mask bipap) Neck: supple Effort: normal Ascultation: Bilateral: diminished breath sounds Percussion: Bilateral: not dull Cardiovascular: regular rate and rhythm Gastrointestinal: normoactive bowel sounds Integumentary: normal Extremities: edema CBC and BMP: 04/05/21 05:01 04/06/21 05:36 ABG, PT/INR, D-dimer: ABG ABG pH 7.342 (7.320-7.450) 04/05/21 08:00 POC ABG pCO2 76.0 mmHg (32.0-48.0) H 04/05/21 08:00 ABG pCO2 86.8 mm Hg 04/04/21 Unknown POC ABG pO2 66.9 mmHg (83-108) L 04/05/21 08:00 ABG pO2 125.0 mm Hg (80.0-90.0) H 04/04/21 Unknown POC ABG HCO3 40.3 04/05/21 08:00 ABG O2 Saturation 93.5 (0-100) 04/05/21 08:00 PT/INR, D-dimer PT 15.0 Sec. (12.2-14.9) H 04/04/21 17:53 INR 1.06 (0.87-1.13) 04/04/21 17:53 D-Dimer 283.80 ng/mlDDU (0-234) H 04/04/21 20:30 Abnormal lab findings: Abnormal Labs 04/04/21 04/04/21 04/04/21 17:53 17:53 17:53 WBC 11.8 H Hct 45.5 H MCV 99 H MCHC 29 L Seg Neuts % (Manual) Lymphocytes % (Manual) Monocytes % (Manual) 17.0 H Basophils % (Manual) 3.0 H Seg Neutrophils # Man Lymphocytes # (Manual) Monocytes # (Manual) 2.0 H Basophils # (Manual) 0.4 H PT 15.0 H D-Dimer ABG pH POC ABG pCO2 POC ABG pO2 ABG pO2 ABG HCO3 ABG Base Excess ABG Oxyhemoglobin ABG Sodium ABG Chloride ABG Glucose Oxyhemoglobin Sodium 136 L Chloride 87.0 L Carbon Dioxide 31 H BUN 20 H Glucose 130 H POC Glucose Magnesium 2.90 H Ferritin AST 43 H Lactate Dehydrogenase C-Reactive Protein NT-Pro-B Natriuret Pep 1911 H Albumin Arterial Blood Glucose Coronavirus (PCR) 04/04/21 04/04/21 04/04/21 18:00 20:30 20:30 WBC Hct MCV MCHC Seg Neuts % (Manual) Lymphocytes % (Manual) Monocytes % (Manual) Basophils % (Manual) Seg Neutrophils # Man Lymphocytes # (Manual) Monocytes # (Manual) Basophils # (Manual) PT D-Dimer 283.80 H ABG pH 7.072 L* POC ABG pCO2 POC ABG pO2 ABG pO2 163.4 H ABG HCO3 41.1 H ABG Base Excess 6.0 H ABG Oxyhemoglobin ABG Sodium ABG Chloride ABG Glucose Oxyhemoglobin 94.8 L Sodium Chloride Carbon Dioxide BUN Glucose POC Glucose Magnesium Ferritin 236.2 H AST Lactate Dehydrogenase C-Reactive Protein NT-Pro-B Natriuret Pep Albumin Arterial Blood Glucose Coronavirus (PCR) 04/04/21 04/04/21 04/05/21 20:30 Unknown 05:01 WBC Hct MCV MCHC Seg Neuts % (Manual) 94.0 H Lymphocytes % (Manual) 1.0 L Monocytes % (Manual) Basophils % (Manual) Seg Neutrophils # Man 8.7 H Lymphocytes # (Manual) 0.1 L Monocytes # (Manual) Basophils # (Manual) PT D-Dimer ABG pH 7.267 L POC ABG pCO2 POC ABG pO2 ABG pO2 125.0 H ABG HCO3 38.7 H ABG Base Excess 8.6 H ABG Oxyhemoglobin ABG Sodium ABG Chloride ABG Glucose Oxyhemoglobin 94.9 L Sodium Chloride Carbon Dioxide BUN Glucose POC Glucose Magnesium Ferritin AST Lactate Dehydrogenase 434 H C-Reactive Protein 7.90 H NT-Pro-B Natriuret Pep Albumin Arterial Blood Glucose Coronavirus (PCR) 04/05/21 04/05/21 04/05/21 05:01 08:00 18:25 WBC Hct MCV MCHC Seg Neuts % (Manual) Lymphocytes % (Manual) Monocytes % (Manual) Basophils % (Manual) Seg Neutrophils # Man Lymphocytes # (Manual) Monocytes # (Manual) Basophils # (Manual) PT D-Dimer ABG pH POC ABG pCO2 76.0 H POC ABG pO2 66.9 L ABG pO2 ABG HCO3 ABG Base Excess ABG Oxyhemoglobin 92.2 L ABG Sodium 134.3 L ABG Chloride 91.0 L ABG Glucose 156 H Oxyhemoglobin Sodium 136 L Chloride 91.5 L 87.1 L Carbon Dioxide 35 H 36 H BUN 23 H 25 H Glucose 178 H 127 H POC Glucose Magnesium Ferritin AST 68 H Lactate Dehydrogenase C-Reactive Protein NT-Pro-B Natriuret Pep Albumin 3.8 L Arterial Blood Glucose 156 H Coronavirus (PCR) 04/05/21 04/05/21 04/06/21 22:33 Unknown 05:36 WBC Hct MCV MCHC Seg Neuts % (Manual) Lymphocytes % (Manual) Monocytes % (Manual) Basophils % (Manual) Seg Neutrophils # Man Lymphocytes # (Manual) Monocytes # (Manual) Basophils # (Manual) PT D-Dimer ABG pH POC ABG pCO2 POC ABG pO2 ABG pO2 ABG HCO3 ABG Base Excess ABG Oxyhemoglobin ABG Sodium ABG Chloride ABG Glucose Oxyhemoglobin Sodium Chloride 88.5 L Carbon Dioxide 37 H BUN 26 H Glucose 132 H POC Glucose 154 H Magnesium Ferritin AST 74 H Lactate Dehydrogenase C-Reactive Protein NT-Pro-B Natriuret Pep Albumin Arterial Blood Glucose Coronavirus (PCR) Positive A 04/06/21 04/06/21 07:56 11:52 WBC Hct MCV MCHC Seg Neuts % (Manual) Lymphocytes % (Manual) Monocytes % (Manual) Basophils % (Manual) Seg Neutrophils # Man Lymphocytes # (Manual) Monocytes # (Manual) Basophils # (Manual) PT D-Dimer ABG pH POC ABG pCO2 POC ABG pO2 ABG pO2 ABG HCO3 ABG Base Excess ABG Oxyhemoglobin ABG Sodium ABG Chloride ABG Glucose Oxyhemoglobin Sodium Chloride Carbon Dioxide BUN Glucose POC Glucose 138 H 142 H Magnesium Ferritin AST Lactate Dehydrogenase C-Reactive Protein NT-Pro-B Natriuret Pep Albumin Arterial Blood Glucose Coronavirus (PCR)
[2021-04-06] MEDS: ENOXAPARIN 40 MG/0.4 ML INJ SUB-Q SCH (21:19)
[2021-04-06] MEDS: SENNOSIDES 8.6 MG TAB PO SCH (21:19)
[2021-04-06] MEDS: MONTELUKAST 10 MG TAB PO SCH (21:19)
[2021-04-06] MEDS: REMDESIVIR 100 MG in SODIUM CHLORIDE 0.9% 250ML 250 ML IV SCH (21:20)
[2021-04-06] MEDS: AZITHROMYCIN 250 MG TAB PO SCH (21:20)
[2021-04-06] MEDS: SODIUM CHLORIDE 0.9% 50 ML IVPB IV SCH (21:55)
[2021-04-07] MEDS: methylPREDNISolone Sod Succinate 40 MG/1 ML INJ IV SCH ×4 (01:06→17:59)
[2021-04-07] MEDS: HYDROmorphone 1 MG/1 ML INJ IV PRN ×4 (01:07→19:40)
[2021-04-07] MEDS: INSULIN REGULAR, HUMAN 100 UNITS/1 ML SUB-Q SCH ×4 (07:30→22:08)
[2021-04-07 07:37] LABS: Basophils % (Auto) 0.2 % (0.0-1.8); Lymphocytes # (Auto) 0.4 K/mm3 (1.2-5.4); Lymphocytes % (Auto) 7.5 % (13.4-35.0); Mean Corpuscular HGB Conc 31 % (30-34); Mean Corpuscular Volume 97 fl (79-97); Monocytes # (Auto) 0.2 K/mm3 (0.0-0.8); Monocytes % (Auto) 4.2 % (0.0-7.3); Platelet Count 216 K/mm3 (140-440); Red Blood Count 4.03 M/mm3 (3.65-5.03)
[2021-04-07 08:00] LABS: Alanine Aminotransferase 33 units/L (7-56); BUN/Creatinine Ratio 62; Blood Urea Nitrogen 31 mg/dL (7-17); Calcium 9.3 mg/dL (8.4-10.2); Hemolysis Index 1
[2021-04-07 08:02] LABS: Hematocrit 39.2 % (30.3-42.9)
--- NOTE | 2021-04-07 08:04 | Progress Note ---
Assessment and Plan Assessment and plan: This is a 50-year-old female with asthma, COPD and former smoker admitted as a COVID-19 pneumonia and with COPD exacerbation. Interval history: This is a 50-year-old female with asthma, COPD and former smoker who presented to emergency department on 04/04 with a 2-day history of progressively worsening shortness of breath via EMS. On EMS arrival patient was found to have SPO2 of 40% on room air and was placed on CPAP, given albuterol, Solu-Medrol, magnesium and IM epinephrine with increase of SPO2 to 70%. Patient states that she is vaccinated with 2 doses of [employer] vaccine but has not received a booster. Patient did acknowledge contact with patient's that are Covid positive at home. Recommend emergency department patient was found to have acute respiratory failure and placed on BiPAP and repeat ABG showed improvement and CXR showed pulmonary edema. Patient was admitted to the hospitalist service as a COVID-19 PUI with COPD exacerbation. 04/05: Patient remained on BiPAP therapy and was transitioned to OptiFlow this afternoon. She had a Krueger catheter placed yesterday due to retention which will be discontinued today. Patient is positive for COVID-19. Echocardiogram completed and cardiology will pursue a conservative cardiac approach. Will start remdesivir per ID recommendation. 04/06: Krueger catheter replaced overnight d/t retention. Remains on Optiflow. Started remdesivir yesterday per ID recs and received Actemra 04/07: Currently on optiflow 30/50 saturating 96%, will coordinate with RT to attempt to de-escalate o2 req. OK with sats 90% and above. Continue supportive care with steroids, abx, remdesivir, int dose lovenox. Assessment and Plan: Neuro: NAD -Avoid delirium -Reorientation as needed -Aspiration/fall precautions -As needed analgesia Cardio: Possible CHF -Cardiology consulted, appreciate recommendations -IV Lasix -Echocardiogram shows mildly dilated right heart chambers, moderate tricuspid regurgitation, moderate pulmonary hypertension, RVSP 55-60 mmhg, LVEF 55 to 60% -Per cardiology: We will pursue conservative cardiac approach -Blood pressure monitor per protocol -As needed hydralazine -proBNP 1910 Respiratory: Acute hypoxic hypercapnic respiratory failure, h/o asthma and COPD, former nicotine abuse -Pulmonology consulted, patient recommendations -BiPAP qhs -IV steroids -IV Lasix -Pulmicort, albuterol, DuoNeb, Singulair -SPO2 monitor per protocol -Supplemental oxygen as needed -Patient weaned to OptiFlow GI: MO -Cardiac diet -24 hours -3320ml -BR senakot -PPI : Urinary retention, hypochloremia, metabolic alkalosis -Krueger replaced on 04/06 d/t retention -reasses and remove as soon as possible -Trend BMP ID: COVID-19 PNA -Infectious disease consulted, appreciate recommendations -Droplet/isolation precautions -COVID-19 PCR positive -Patient states she received 2 doses of Pfizer vaccine but did not receive booster -Solu-Medrol -Ceftriaxone discontinued per ID -Azithromycin () -Trend COVID-19 inflammatory markers -Remdesivir (04/05-04/10) -Anticoagulation per hospital policy -Trend CMP while on remdesivir -s/p Actemra x1 -Self prone as tolerated Endo: Hyperglycemia -SSI -Accu-Cheks every 6 -Avoid hypoglycemia Heme: Leukocytosis (resolved) -Presented with leukocytosis at 11.8 -Trend CBC -Transfuse for hemoglobin less than 7 -Lovenox sub q The high probability of a clinically significant, sudden or life threatening deterioration of the [resp] system(s) required my full and direct attention, intervention and personal management. The aggregate critical care time was [60] minutes. This time is in addition to time spent performing reported procedures but includes the following: [x] Data Review and interpretation [x] Patient assessment and monitoring of vital signs [x] Documentation [x] Medication orders and management Disposition Plan: transfer to floor Total Time Spent with Patient (Minutes): 60 History Interval history: NO acute complaints. States symptoms are better than yesterday. Remains on optiflow. Hospitalist Physical - Physical exam Narrative exam: Physical Exam: VITAL SIGNS: Reviewed. GENERAL: The patient appears normally developed, Vital signs as documented. Optiflow 50L/min and 30% HEAD: No signs of head trauma. EYES: Pupils are equal. Extraocular motions intact. EARS: Hearing grossly intact. MOUTH: Oropharynx is normal. NECK: No adenopathy, no JVD. CHEST: rhonchi bl lung jimenez CARDIAC: Regular rate and rhythm. S1 and S2, without murmurs, gallops, or rubs. VASCULAR: No Edema. Peripheral pulses normal and equal in all extremities. ABDOMEN: Soft, non tender and non distended. No rebound or guarding, and no masses palpated. Bowel Sounds normal. MUSCULOSKELETAL: Good range of motion of all major joints. Extremities without clubbing, cyanosis or edema. NEUROLOGIC EXAM: Alert and oriented x 4. no focal sensory or strength deficits. PSYCHIATRIC: Mood normal. SKIN: detail exam as documented in skin assessment - Constitutional Vitals: Temp Pulse Resp BP Pulse Ox 98.1 F 60 18 117/53 96 04/07/21 05:47 04/07/21 06:11 04/07/21 06:11 04/07/21 05:47 04/07/21 06:11 General appearance: Present: no acute distress, obese, other HEART Score - HEART Score Troponin: Troponin T < 0.010 ng/mL (0.00-0.029) 04/04/21 17:53 Results - Labs CBC & Chem 7: 04/07/21 07:00 04/07/21 07:00 Labs: Laboratory Last Values WBC 5.5 K/mm3 (4.5-11.0) 04/07/21 07:00 RBC 4.03 M/mm3 (3.65-5.03) 04/07/21 07:00 Hgb 12.0 gm/dl (10.1-14.3) 04/07/21 07:00 Hct 39.2 % (30.3-42.9) 04/07/21 07:00 MCV 97 fl (79-97) 04/07/21 07:00 MCH 30 pg (28-32) 04/07/21 07:00 MCHC 31 % (30-34) 04/07/21 07:00 RDW 14.0 % (13.2-15.2) 04/07/21 07:00 Plt Count 216 K/mm3 (140-440) 04/07/21 07:00 Lymph % (Auto) 7.5 % (13.4-35.0) L 04/07/21 07:00 [place] % (Auto) 4.2 % (0.0-7.3) 04/07/21 07:00 Eos % (Auto) 0.0 % (0.0-4.3) 04/07/21 07:00 Baso % (Auto) 0.2 % (0.0-1.8) 04/07/21 07:00 Lymph # (Auto) 0.4 K/mm3 (1.2-5.4) L 04/07/21 07:00 [place] # (Auto) 0.2 K/mm3 (0.0-0.8) 04/07/21 07:00 Eos # (Auto) 0.0 K/mm3 (0.0-0.4) 04/07/21 07:00 Baso # (Auto) 0.0 K/mm3 (0.0-0.1) 04/07/21 07:00 Add Manual Diff Complete 04/05/21 05:01 Total Counted 100 04/05/21 05:01 Seg Neutrophils % 88.1 % (40.0-70.0) H 04/07/21 07:00 Seg Neuts % (Manual) 94.0 % (40.0-70.0) H 04/05/21 05:01 Band Neutrophils % 1.0 % 04/05/21 05:01 Lymphocytes % (Manual) 1.0 % (13.4-35.0) L 04/05/21 05:01 Monocytes % (Manual) 4.0 % (0.0-7.3) 04/05/21 05:01 Eosinophils % (Manual) 1.0 % (0.0-4.3) 04/04/21 17:53 Basophils % (Manual) 3.0 % (0.0-1.8) H 04/04/21 17:53 Nucleated RBC % Not Reportable 04/05/21 05:01 Seg Neutrophils # 4.8 K/mm3 (1.8-7.7) 04/07/21 07:00 Seg Neutrophils # Man 8.7 K/mm3 (1.8-7.7) H 04/05/21 05:01 Band Neutrophils # 0.1 K/mm3 04/05/21 05:01 Lymphocytes # (Manual) 0.1 K/mm3 (1.2-5.4) L 04/05/21 05:01 Abs React Lymphs (Man) 0.0 K/mm3 04/05/21 05:01 Monocytes # (Manual) 0.4 K/mm3 (0.0-0.8) 04/05/21 05:01 Eosinophils # (Manual) 0.0 K/mm3 (0.0-0.4) 04/05/21 05:01 Basophils # (Manual) 0.0 K/mm3 (0.0-0.1) 04/05/21 05:01 Metamyelocytes # 0.0 K/mm3 04/05/21 05:01 Myelocytes # 0.0 K/mm3 04/05/21 05:01 Promyelocytes # 0.0 K/mm3 04/05/21 05:01 Blast Cells # 0.0 K/mm3 04/05/21 05:01 WBC Morphology Not Reportable 04/05/21 05:01 Hypersegmented Neuts Not Reportable 04/05/21 05:01 Hyposegmented Neuts Not Reportable 04/05/21 05:01 Hypogranular Neuts Not Reportable 04/05/21 05:01 Smudge Cells Not Reportable 04/05/21 05:01 Toxic Granulation Not Reportable 04/05/21 05:01 Toxic Vacuolation Not Reportable 04/05/21 05:01 Dohle Bodies Not Reportable 04/05/21 05:01 Pelger-Huet Anomaly Not Reportable 04/05/21 05:01 Bronson Rods Not Reportable 04/05/21 05:01 Platelet Estimate Consistent w auto 04/05/21 05:01 Clumped Platelets Not Reportable 04/05/21 05:01 Plt Clumps, EDTA Not Reportable 04/05/21 05:01 Large Platelets Not Reportable 04/05/21 05:01 Giant Platelets Not Reportable 04/05/21 05:01 Platelet Satelliting Not Reportable 04/05/21 05:01 Plt Morphology Comment Not Reportable 04/05/21 05:01 RBC Morphology Not Reportable 04/05/21 05:01 Dimorphic RBCs Not Reportable 04/05/21 05:01 Polychromasia Not Reportable 04/05/21 05:01 Hypochromasia Not Reportable 04/05/21 05:01 Poikilocytosis Not Reportable 04/05/21 05:01 Anisocytosis 1+ 04/05/21 05:01 Microcytosis Not Reportable 04/05/21 05:01 Macrocytosis Not Reportable 04/05/21 05:01 Spherocytes Not Reportable 04/05/21 05:01 Pappenheimer Bodies Not Reportable 04/05/21 05:01 Sickle Cells Not Reportable 04/05/21 05:01 Target Cells Not Reportable 04/05/21 05:01 Tear Drop Cells Not Reportable 04/05/21 05:01 Ovalocytes Not Reportable 04/05/21 05:01 Helmet Cells Not Reportable 04/05/21 05:01 [place] Bodies Not Reportable 04/05/21 05:01 [place] Rings Not Reportable 04/05/21 05:01 [place] Cells Not Reportable 04/05/21 05:01 Bite Cells Not Reportable 04/05/21 05:01 Crenated Cell Not Reportable 04/05/21 05:01 Elliptocytes Not Reportable 04/05/21 05:01 Acanthocytes (Spur) Not Reportable 04/05/21 05:01 Rouleaux Not Reportable 04/05/21 05:01 Hemoglobin C Crystals Not Reportable 04/05/21 05:01 Schistocytes Not Reportable 04/05/21 05:01 Malaria parasites Not Reportable 04/05/21 05:01 Jesus Alberto Bodies Not Reportable 04/05/21 05:01 Hem Pathologist Commnt No 04/05/21 05:01 PT 15.0 Sec. (12.2-14.9) H 04/04/21 17:53 INR 1.06 (0.87-1.13) 04/04/21 17:53 D-Dimer 165.19 ng/mlDDU (0-234) 04/07/21 07:00 ABG pH 7.342 (7.320-7.450) 04/05/21 08:00 POC ABG pCO2 76.0 mmHg (32.0-48.0) H 04/05/21 08:00 ABG pCO2 86.8 mm Hg 04/04/21 Unknown POC ABG pO2 66.9 mmHg (83-108) L 04/05/21 08:00 ABG pO2 125.0 mm Hg (80.0-90.0) H 04/04/21 Unknown POC ABG HCO3 40.3 04/05/21 08:00 ABG HCO3 38.7 mmol/L (20.0-26.0) H 04/04/21 Unknown ABG O2 Saturation 93.5 (0-100) 04/05/21 08:00 ABG O2 Content 17.1 (0.0-44) 04/04/21 Unknown POC ABG Base Excess 11.3 04/05/21 08:00 ABG Base Excess 8.6 mmol/L (-2.0-3.0) H 04/04/21 Unknown ABG Hemoglobin 13.4 (12.0-17.5) 04/05/21 08:00 ABG Oxyhemoglobin 92.2 (94-98) L 04/05/21 08:00 ABG Carboxyhemoglobin 2.4 % (0.0-5.0) 04/04/21 Unknown ABG Methemoglobin 0.3 (0.0-1.5) 04/05/21 08:00 ABG Sodium 134.3 mmol/L (136.0-145.0) L 04/05/21 08:00 ABG Potassium 4.5 mmol/L (3.40-4.50) 04/05/21 08:00 ABG Chloride 91.0 mmol/L (98-107) L 04/05/21 08:00 ABG Glucose 156 mg/dL (65-95) H 04/05/21 08:00 Oxyhemoglobin 94.9 % (95.0-99.0) L 04/04/21 Unknown Carboxyhemoglobin 1.1 (0.5-1.5) 04/05/21 08:00 FiO2 80 % 04/04/21 Unknown FiO2 % 50.0 04/05/21 08:00 Sodium 141 mmol/L (137-145) 04/07/21 07:00 Potassium 3.9 mmol/L (3.6-5.0) 04/07/21 07:00 Chloride 88.9 mmol/L (98-107) L 04/07/21 07:00 Carbon Dioxide 39 mmol/L (22-30) H 04/07/21 07:00 Anion Gap 17 mmol/L 04/07/21 07:00 BUN 31 mg/dL (7-17) H 04/07/21 07:00 Creatinine 0.5 mg/dL (0.6-1.2) L 04/07/21 07:00 Estimated GFR > 60 ml/min 04/07/21 07:00 BUN/Creatinine Ratio 62 % 04/07/21 07:00 Glucose 158 mg/dL (65-100) H 04/07/21 07:00 POC Glucose 139 mg/dL (70-105) H 04/07/21 07:52 Calcium 9.3 mg/dL (8.4-10.2) 04/07/21 07:00 Magnesium 2.90 mg/dL (1.7-2.3) H 04/04/21 17:53 Ferritin 236.2 ng/mL (10.0-200.0) H 04/04/21 20:30 Total Bilirubin 0.70 mg/dL (0.1-1.2) 04/07/21 07:00 AST 61 units/L (5-40) H 04/07/21 07:00 ALT 33 units/L (7-56) 04/07/21 07:00 Alkaline Phosphatase 48 units/L (35-129) 04/07/21 07:00 Lactate Dehydrogenase 294 units/L (91-180) H 04/07/21 07:00 Troponin T < 0.010 ng/mL (0.00-0.029) 04/04/21 17:53 C-Reactive Protein 3.10 mg/dL (0.00-1.30) H 04/07/21 07:00 NT-Pro-B Natriuret Pep 1911 pg/mL (0-450) H 04/04/21 17:53 Total Protein 7.1 g/dL (6.3-8.2) 04/07/21 07:00 Albumin 4.0 g/dL (3.9-5) 04/07/21 07:00 Albumin/Globulin Ratio 1.3 % 04/07/21 07:00 Procalcitonin 0.07 ng/mL (<0.15) 04/04/21 20:30 Arterial Blood Glucose 156 mg/dL (65-95) H 04/05/21 08:00 Arterial Blood Ionized Calcium 4.6 mg/dL (4.6-5.3) 04/05/21 08:00 Urine Color Straw (Yellow) 04/06/21 11:05 Urine Turbidity Clear (Clear) 04/06/21 11:05 Urine pH 5.0 (5.0-7.0) 04/06/21 11:05 Ur Specific [place] 1.006 (1.003-1.030) 04/06/21 11:05 Urine Protein <15 mg/dl mg/dL (Negative) 04/06/21 11:05 Urine Glucose (UA) Neg mg/dL (Negative) 04/06/21 11:05 Urine Ketones Neg mg/dL (Negative) 04/06/21 11:05 Urine Blood Mod (Negative) 04/06/21 11:05 Urine Nitrite Neg (Negative) 04/06/21 11:05 Urine Bilirubin Neg (Negative) 04/06/21 11:05 Urine Urobilinogen < 2.0 mg/dL (<2.0) 04/06/21 11:05 Ur Leukocyte Esterase Neg (Negative) 04/06/21 11:05 Urine WBC (Auto) 1.0 /HPF (0.0-6.0) 04/06/21 11:05 Urine RBC (Auto) 13.0 /HPF (0.0-6.0) 04/06/21 11:05 U Epithel Cells (Auto) 6.0 /HPF (0-13.0) 04/06/21 11:05 Urine Mucus Few /HPF 04/06/21 11:05 Coronavirus (PCR) Positive (Negative) A 04/05/21 Unknown Krueger/IV: Voiding Method Indwelling Catheter Active Medications - Current Medications Current Medications: Generic Name Dose Route Start Last Admin Trade Name Freq PRN Reason Stop Dose Admin Acetaminophen 650 mg 04/04/21 21:56 Acetaminophen 325 Mg Tab PO Q4H PRN Pain MILD(1-3)/Fever >100.5/MONAE Albuterol 2.5 mg 04/04/21 21:56 Albuterol 2.5 Mg/3 Ml Nebu IH Q4HRT PRN Shortness Of Breath Azithromycin 500 mg 04/06/21 22:00 04/06/21 21:20 Azithromycin 250 Mg Tab PO 04/09/21 22:01 500 mg 2200 JULIO Administration Protocol Dextrose 50 ml 04/05/21 17:22 Dextrose 50% In Water (25gm) 50 Ml Syringe IV Q30MIN PRN Hypoglycemia Protocol Enoxaparin Sodium 40 mg 04/06/21 22:00 04/06/21 21:19 Enoxaparin 40 Mg/0.4 Ml Inj SUB-Q 40 mg BID JULIO Administration Protocol Famotidine 20 mg 04/04/21 22:00 04/06/21 21:20 Famotidine 20 Mg Tab PO 20 mg BID JULIO Administration Furosemide 40 mg 04/05/21 10:00 04/06/21 10:14 Furosemide 40 Mg/4 Ml Inj IV 40 mg QDAY JULIO Administration Hydralazine HCl 10 mg 04/04/21 22:13 04/04/21 22:50 Hydralazine 20 Mg/1 Ml Inj IV 10 mg Q6H PRN Administration Blood Pressure Hydromorphone HCl 0.5 mg 04/04/21 21:56 04/07/21 06:12 Hydromorphone 1 Mg/1 Ml Inj IV 0.5 mg Q3H PRN Administration Pain , Severe (7-10) REMDESIVIR 100 mg/ Sodium 250 mls @ 500 mls/hr 04/06/21 21:00 04/06/21 21:20 Chloride IV 04/09/21 21:29 500 mls/hr Q24HR@2100 JULIO Administration Insulin Human Regular 0 units 04/05/21 22:00 04/06/21 22:10 Insulin Regular, Human 100 Units/1 Ml SUB-Q Not Given ACHS [facility] Protocol Methylprednisolone Sodium Succinate 40 mg 04/05/21 00:00 04/07/21 06:12 Methylprednisolone Sod Succinate 40 Mg/1 Ml Inj IV 40 mg Q6HR JULIO Administration Montelukast Sodium 10 mg 04/04/21 22:00 04/06/21 21:19 Montelukast 10 Mg Tab PO 10 mg QHS JULIO Administration Ondansetron HCl 4 mg 04/04/21 21:56 Ondansetron 4 Mg/2 Ml Inj IV Q8H PRN Nausea And Vomiting Oxycodone/Acetaminophen 1 tab 04/04/21 21:56 Oxycodone /Acetaminophen 5-325mg Tab PO Q6H PRN Pain, Moderate (4-6) Senna 17.2 mg 04/06/21 22:00 04/06/21 21:19 Sennosides 8.6 Mg Tab PO 17.2 mg QHS JULIO Administration Sodium Chloride 10 ml 04/04/21 22:00 04/06/21 21:20 Sodium Chloride 0.9% 10 Ml Flush Syringe IV 10 ml BID JULIO Administration Sodium Chloride 10 ml 04/04/21 21:56 Sodium Chloride 0.9% 10 Ml Flush Syringe IV PRN PRN LINE FLUSH Sodium Chloride 50 ml 04/06/21 22:00 04/06/21 21:55 Sodium Chloride 0.9% 50 Ml Ivpb IV 04/09/21 22:01 50 ml Q24H JULIO Administration
[2021-04-07] MEDS: ENOXAPARIN 40 MG/0.4 ML INJ SUB-Q SCH ×2 (10:29→21:46)
[2021-04-07] MEDS: FUROSEMIDE 40 MG/4 ML INJ IV SCH (10:29)
[2021-04-07] MEDS: FAMOTIDINE 20 MG TAB PO SCH ×2 (10:29→21:47)
--- NOTE | 2021-04-07 11:31 | Progress Note ---
Assessment and Plan Cultures: SARS CoV2 PCR: positive A/P: 50-year-old female admitted with: #COVID-19 pneumonia: severe disease requiring BiPAP on admission with high CRP. S/P Actemra, on steroids and remdesivir. D-dimer improved to 165, ferritin 166, CRP 3.1. #Acute hypercapnic and hypoxic respiratory failure: Requiring BiPAP, now on HFNC #Morbid obesity Recs: - on steroids per pulmonary - continue remdesivir x 5 days - anticoagulation per protocol based on d-dimer - Complete 5 days of azithromycin - S/P Actemra 04/06/2021 Sean Fuentes MD, FACP [facility] O: [phone] F: [phone] Subjective Date of service: 04/07/21 Interval history: No fever. Out of ICU. Remains on high flow nasal cannula. D-dimer improved to 165, ferritin 166, CRP 3.1 Objective - Exam Narrative Exam: Physical Exam (reviewed in chart to minimize risk of transmission) Constitutional: deferred Head, Ears, Nose: deferred Eyes: deferred Neck: deferred Oral: deferred Cardiovascular: deferred Respiratory: deferred GI: deferred Musculoskeletal: deferred Skin: deferred Hem/Lymphatic: deferred Psych: deferred Neurological: deferred - Constitutional Vitals: Vital Signs Temp Pulse Resp BP Pulse Ox 98.1 F 60 18 117/53 96 04/07/21 05:47 04/07/21 06:11 04/07/21 06:11 04/07/21 05:47 04/07/21 06:11 Temperature -Last 24 Hours Temperature 98.1 F Temperature 98.1 F - Labs CBC & Chem 7: 04/07/21 07:00 04/07/21 07:00 Labs: Abnormal lab results 04/06/21 04/06/21 04/06/21 Range/Units 11:52 16:36 22:51 Lymph % (Auto) (13.4-35.0) % Lymph # (Auto) (1.2-5.4) K/mm3 Seg Neutrophils % (40.0-70.0) % Chloride (98-107) mmol/L Carbon Dioxide (22-30) mmol/L BUN (7-17) mg/dL Creatinine (0.6-1.2) mg/dL Glucose (65-100) mg/dL POC Glucose 142 H 152 H 137 H (70-105) mg/dL AST (5-40) units/L Lactate Dehydrogenase (91-180) units/L C-Reactive Protein (0.00-1.30) mg/dL 04/07/21 04/07/21 04/07/21 Range/Units 07:00 07:00 07:52 Lymph % (Auto) 7.5 L (13.4-35.0) % Lymph # (Auto) 0.4 L (1.2-5.4) K/mm3 Seg Neutrophils % 88.1 H (40.0-70.0) % Chloride 88.9 L (98-107) mmol/L Carbon Dioxide 39 H (22-30) mmol/L BUN 31 H (7-17) mg/dL Creatinine 0.5 L (0.6-1.2) mg/dL Glucose 158 H (65-100) mg/dL POC Glucose 139 H (70-105) mg/dL AST 61 H (5-40) units/L Lactate Dehydrogenase 294 H (91-180) units/L C-Reactive Protein 3.10 H (0.00-1.30) mg/dL
--- NOTE | 2021-04-07 12:56 | Progress Note ---
Assessment and Plan - Patient Problems (1) Acute respiratory failure with hypoxia Current Visit: Yes Status: Acute Plan to address problem: Respiratory failure due to acute Covid infection. Cardiac status is stable and asymptomatic, will follow intermittently. Subjective Date of service: 04/07/21 Interval history: No new cardiac complaints, patient is undergoing routine management of acute Covid infection. Objective Vital Signs Temp Pulse Pulse Resp Resp BP Pulse Ox 04/07/21 06:11 60 18 96 04/07/21 05:47 98.1 F 62 20 117/53 91 04/07/21 02:00 92 04/07/21 01:17 67 20 04/06/21 22:58 98.1 F 66 20 112/53 94 04/06/21 21:33 96 04/06/21 21:00 96 04/06/21 17:11 155/73 98 04/06/21 17:00 155/73 89 04/06/21 16:51 146/74 96 04/06/21 16:41 67 16 146/74 96 04/06/21 16:31 56 L 11 L 146/74 96 04/06/21 16:21 61 22 146/74 95 04/06/21 16:11 75 11 L 146/74 96 04/06/21 16:00 63 20 146/74 93 04/06/21 15:51 58 L 11 L 141/80 94 04/06/21 15:41 58 L 16 141/80 96 04/06/21 15:31 69 11 L 141/80 04/06/21 15:21 79 12 141/80 94 04/06/21 15:20 94 04/06/21 15:11 72 19 137/77 86 04/06/21 15:01 68 19 137/77 92 04/06/21 14:51 72 19 141/80 94 04/06/21 14:41 70 20 141/80 93 04/06/21 14:31 77 14 141/80 91 04/06/21 14:21 87 17 141/80 95 04/06/21 14:11 74 15 141/80 94 04/06/21 14:00 66 18 141/80 92 04/06/21 13:51 70 16 131/59 94 04/06/21 13:41 67 15 131/59 94 04/06/21 13:31 73 19 131/59 93 04/06/21 13:21 77 18 131/59 96 04/06/21 13:11 70 22 131/59 95 04/06/21 13:00 71 16 133/58 91 - Physical Examination Narrative exam: Full physical exam is deferred due to acute Covid infection. General: No Apparent Distress - Labs and Meds Cardiac Enzymes 04/07/21 Range/Units 07:00 AST 61 H (5-40) units/L Lactate Dehydrogenase 294 H (91-180) units/L CBC 04/07/21 Range/Units 07:00 WBC 5.5 (4.5-11.0) K/mm3 RBC 4.03 (3.65-5.03) M/mm3 Hgb 12.0 (10.1-14.3) gm/dl Hct 39.2 (30.3-42.9) % Plt Count 216 (140-440) K/mm3 Lymph # (Auto) 0.4 L (1.2-5.4) K/mm3 [place] # (Auto) 0.2 (0.0-0.8) K/mm3 Eos # (Auto) 0.0 (0.0-0.4) K/mm3 Baso # (Auto) 0.0 (0.0-0.1) K/mm3 Comprehensive Metabolic Panel 04/07/21 Range/Units 07:00 Sodium 141 (137-145) mmol/L Potassium 3.9 (3.6-5.0) mmol/L Chloride 88.9 L (98-107) mmol/L Carbon Dioxide 39 H (22-30) mmol/L BUN 31 H (7-17) mg/dL Creatinine 0.5 L (0.6-1.2) mg/dL Glucose 158 H (65-100) mg/dL Calcium 9.3 (8.4-10.2) mg/dL AST 61 H (5-40) units/L ALT 33 (7-56) units/L Alkaline Phosphatase 48 (35-129) units/L Total Protein 7.1 (6.3-8.2) g/dL Albumin 4.0 (3.9-5) g/dL
--- NOTE | 2021-04-07 12:58 | Progress Note ---
Assessment and Plan 50 y/o obese female with some form of obstructive lung disease admitted with acute hypoxic hypercapnic respiratory failure. 04/07/21: Continue daily net negative state. Continue steroids. Prone. Wean FiO2 for sats >88% 04/06/21: Stop Pulmicort. Puffers only. Lasix given pulmonary HTN seen on echo. Continue steroids. Needs to prone. Stable for transfer to COVID floor. 1. Wean Bipap as tolerated 2. Agree with steroids at current dosing 3. Added BID pulmicort 4. Agree with diuresis. 5. Needs echo 6. Will continue to follow. Subjective Date of service: 04/07/21 Interval history: No acute events. Down to 30 and 50 but this is from 0200. Objective Vital Signs - 12hr 04/07/21 04/07/21 04/07/21 01:17 02:00 05:47 Temperature 98.1 F Pulse Rate 62 Pulse Rate [ 67 Bilateral Throughout] Respiratory 20 Rate Respiratory 20 Rate [Bilateral Throughout] Blood Pressure 117/53 O2 Sat by Pulse 92 91 Oximetry 04/07/21 06:11 Temperature Pulse Rate 60 Pulse Rate [ Bilateral Throughout] Respiratory 18 Rate Respiratory Rate [Bilateral Throughout] Blood Pressure O2 Sat by Pulse 96 Oximetry Constitutional: no acute distress, alert ENT: other (full face mask bipap) Neck: supple Effort: normal Ascultation: Bilateral: diminished breath sounds Percussion: Bilateral: not dull Cardiovascular: regular rate and rhythm Gastrointestinal: normoactive bowel sounds Integumentary: normal Extremities: edema CBC and BMP: 04/07/21 07:00 04/07/21 07:00 ABG, PT/INR, D-dimer: ABG ABG pH 7.342 (7.320-7.450) 04/05/21 08:00 POC ABG pCO2 76.0 mmHg (32.0-48.0) H 04/05/21 08:00 ABG pCO2 86.8 mm Hg 04/04/21 Unknown POC ABG pO2 66.9 mmHg (83-108) L 04/05/21 08:00 ABG pO2 125.0 mm Hg (80.0-90.0) H 04/04/21 Unknown POC ABG HCO3 40.3 04/05/21 08:00 ABG O2 Saturation 93.5 (0-100) 04/05/21 08:00 PT/INR, D-dimer PT 15.0 Sec. (12.2-14.9) H 04/04/21 17:53 INR 1.06 (0.87-1.13) 04/04/21 17:53 D-Dimer 165.19 ng/mlDDU (0-234) 04/07/21 07:00 Abnormal lab findings: Abnormal Labs 04/04/21 04/04/21 04/04/21 17:53 17:53 17:53 WBC 11.8 H Hct 45.5 H MCV 99 H MCHC 29 L Lymph % (Auto) Lymph # (Auto) Seg Neutrophils % Seg Neuts % (Manual) Lymphocytes % (Manual) Monocytes % (Manual) 17.0 H Basophils % (Manual) 3.0 H Seg Neutrophils # Man Lymphocytes # (Manual) Monocytes # (Manual) 2.0 H Basophils # (Manual) 0.4 H PT 15.0 H D-Dimer ABG pH POC ABG pCO2 POC ABG pO2 ABG pO2 ABG HCO3 ABG Base Excess ABG Oxyhemoglobin ABG Sodium ABG Chloride ABG Glucose Oxyhemoglobin Sodium 136 L Chloride 87.0 L Carbon Dioxide 31 H BUN 20 H Creatinine Glucose 130 H POC Glucose Magnesium 2.90 H Ferritin AST 43 H Lactate Dehydrogenase C-Reactive Protein NT-Pro-B Natriuret Pep 1911 H Albumin Arterial Blood Glucose Coronavirus (PCR) 04/04/21 04/04/21 04/04/21 18:00 20:30 20:30 WBC Hct MCV MCHC Lymph % (Auto) Lymph # (Auto) Seg Neutrophils % Seg Neuts % (Manual) Lymphocytes % (Manual) Monocytes % (Manual) Basophils % (Manual) Seg Neutrophils # Man Lymphocytes # (Manual) Monocytes # (Manual) Basophils # (Manual) PT D-Dimer 283.80 H ABG pH 7.072 L* POC ABG pCO2 POC ABG pO2 ABG pO2 163.4 H ABG HCO3 41.1 H ABG Base Excess 6.0 H ABG Oxyhemoglobin ABG Sodium ABG Chloride ABG Glucose Oxyhemoglobin 94.8 L Sodium Chloride Carbon Dioxide BUN Creatinine Glucose POC Glucose Magnesium Ferritin 236.2 H AST Lactate Dehydrogenase C-Reactive Protein NT-Pro-B Natriuret Pep Albumin Arterial Blood Glucose Coronavirus (PCR) 04/04/21 04/04/21 04/05/21 20:30 Unknown 05:01 WBC Hct MCV MCHC Lymph % (Auto) Lymph # (Auto) Seg Neutrophils % Seg Neuts % (Manual) 94.0 H Lymphocytes % (Manual) 1.0 L Monocytes % (Manual) Basophils % (Manual) Seg Neutrophils # Man 8.7 H Lymphocytes # (Manual) 0.1 L Monocytes # (Manual) Basophils # (Manual) PT D-Dimer ABG pH 7.267 L POC ABG pCO2 POC ABG pO2 ABG pO2 125.0 H ABG HCO3 38.7 H ABG Base Excess 8.6 H ABG Oxyhemoglobin ABG Sodium ABG Chloride ABG Glucose Oxyhemoglobin 94.9 L Sodium Chloride Carbon Dioxide BUN Creatinine Glucose POC Glucose Magnesium Ferritin AST Lactate Dehydrogenase 434 H C-Reactive Protein 7.90 H NT-Pro-B Natriuret Pep Albumin Arterial Blood Glucose Coronavirus (PCR) 04/05/21 04/05/21 04/05/21 05:01 08:00 18:25 WBC Hct MCV MCHC Lymph % (Auto) Lymph # (Auto) Seg Neutrophils % Seg Neuts % (Manual) Lymphocytes % (Manual) Monocytes % (Manual) Basophils % (Manual) Seg Neutrophils # Man Lymphocytes # (Manual) Monocytes # (Manual) Basophils # (Manual) PT D-Dimer ABG pH POC ABG pCO2 76.0 H POC ABG pO2 66.9 L ABG pO2 ABG HCO3 ABG Base Excess ABG Oxyhemoglobin 92.2 L ABG Sodium 134.3 L ABG Chloride 91.0 L ABG Glucose 156 H Oxyhemoglobin Sodium 136 L Chloride 91.5 L 87.1 L Carbon Dioxide 35 H 36 H BUN 23 H 25 H Creatinine Glucose 178 H 127 H POC Glucose Magnesium Ferritin AST 68 H Lactate Dehydrogenase C-Reactive Protein NT-Pro-B Natriuret Pep Albumin 3.8 L Arterial Blood Glucose 156 H Coronavirus (PCR) 04/05/21 04/05/21 04/06/21 22:33 Unknown 05:36 WBC Hct MCV MCHC Lymph % (Auto) Lymph # (Auto) Seg Neutrophils % Seg Neuts % (Manual) Lymphocytes % (Manual) Monocytes % (Manual) Basophils % (Manual) Seg Neutrophils # Man Lymphocytes # (Manual) Monocytes # (Manual) Basophils # (Manual) PT D-Dimer ABG pH POC ABG pCO2 POC ABG pO2 ABG pO2 ABG HCO3 ABG Base Excess ABG Oxyhemoglobin ABG Sodium ABG Chloride ABG Glucose Oxyhemoglobin Sodium Chloride 88.5 L Carbon Dioxide 37 H BUN 26 H Creatinine Glucose 132 H POC Glucose 154 H Magnesium Ferritin AST 74 H Lactate Dehydrogenase C-Reactive Protein NT-Pro-B Natriuret Pep Albumin Arterial Blood Glucose Coronavirus (PCR) Positive A 04/06/21 04/06/21 04/06/21 07:56 11:52 16:36 WBC Hct MCV MCHC Lymph % (Auto) Lymph # (Auto) Seg Neutrophils % Seg Neuts % (Manual) Lymphocytes % (Manual) Monocytes % (Manual) Basophils % (Manual) Seg Neutrophils # Man Lymphocytes # (Manual) Monocytes # (Manual) Basophils # (Manual) PT D-Dimer ABG pH POC ABG pCO2 POC ABG pO2 ABG pO2 ABG HCO3 ABG Base Excess ABG Oxyhemoglobin ABG Sodium ABG Chloride ABG Glucose Oxyhemoglobin Sodium Chloride Carbon Dioxide BUN Creatinine Glucose POC Glucose 138 H 142 H 152 H Magnesium Ferritin AST Lactate Dehydrogenase C-Reactive Protein NT-Pro-B Natriuret Pep Albumin Arterial Blood Glucose Coronavirus (PCR) 04/06/21 04/07/21 04/07/21 22:51 07:00 07:00 WBC Hct MCV MCHC Lymph % (Auto) 7.5 L Lymph # (Auto) 0.4 L Seg Neutrophils % 88.1 H Seg Neuts % (Manual) Lymphocytes % (Manual) Monocytes % (Manual) Basophils % (Manual) Seg Neutrophils # Man Lymphocytes # (Manual) Monocytes # (Manual) Basophils # (Manual) PT D-Dimer ABG pH POC ABG pCO2 POC ABG pO2 ABG pO2 ABG HCO3 ABG Base Excess ABG Oxyhemoglobin ABG Sodium ABG Chloride ABG Glucose Oxyhemoglobin Sodium Chloride 88.9 L Carbon Dioxide 39 H BUN 31 H Creatinine 0.5 L Glucose 158 H POC Glucose 137 H Magnesium Ferritin AST 61 H Lactate Dehydrogenase 294 H C-Reactive Protein 3.10 H NT-Pro-B Natriuret Pep Albumin Arterial Blood Glucose Coronavirus (PCR) 04/07/21 04/07/21 07:52 12:21 WBC Hct MCV MCHC Lymph % (Auto) Lymph # (Auto) Seg Neutrophils % Seg Neuts % (Manual) Lymphocytes % (Manual) Monocytes % (Manual) Basophils % (Manual) Seg Neutrophils # Man Lymphocytes # (Manual) Monocytes # (Manual) Basophils # (Manual) PT D-Dimer ABG pH POC ABG pCO2 POC ABG pO2 ABG pO2 ABG HCO3 ABG Base Excess ABG Oxyhemoglobin ABG Sodium ABG Chloride ABG Glucose Oxyhemoglobin Sodium Chloride Carbon Dioxide BUN Creatinine Glucose POC Glucose 139 H 159 H Magnesium Ferritin AST Lactate Dehydrogenase C-Reactive Protein NT-Pro-B Natriuret Pep Albumin Arterial Blood Glucose Coronavirus (PCR)
[2021-04-07] MEDS: KETOROLAC 30 MG/1 ML INJ IV PRN (16:31)
[2021-04-07] MEDS: ALBUTEROL 2.5 MG/3 ML NEBU IH PRN (16:40)
[2021-04-07] MEDS: REMDESIVIR 100 MG in SODIUM CHLORIDE 0.9% 250ML 250 ML IV SCH (21:45)
[2021-04-07] MEDS: SODIUM CHLORIDE 0.9% 50 ML IVPB IV SCH (21:46)
[2021-04-07] MEDS: SENNOSIDES 8.6 MG TAB PO SCH ×2 (21:47→22:06)
[2021-04-07] MEDS: MONTELUKAST 10 MG TAB PO SCH (21:48)
[2021-04-07] MEDS: AZITHROMYCIN 250 MG TAB PO SCH (21:49)
[2021-04-08] MEDS: HYDROmorphone 1 MG/1 ML INJ IV PRN ×2 (01:45→09:17)
[2021-04-08] MEDS: methylPREDNISolone Sod Succinate 40 MG/1 ML INJ IV SCH ×5 (06:25→23:10)
[2021-04-08 06:45] LABS: Alanine Aminotransferase 36 units/L (7-56); Albumin 3.7 g/dL (3.9-5); Blood Urea Nitrogen 37 mg/dL (7-17); Calcium 9.4 mg/dL (8.4-10.2); Hemolysis Index 13
[2021-04-08 06:46] LABS: BUN/Creatinine Ratio 53
--- NOTE | 2021-04-08 08:18 | Progress Note ---
Assessment and Plan Assessment and plan: This is a 50-year-old female with asthma, COPD and former smoker admitted as a COVID-19 pneumonia and with COPD exacerbation. Interval history: This is a 50-year-old female with asthma, COPD and former smoker who presented to emergency department on 04/04 with a 2-day history of progressively worsening shortness of breath via EMS. On EMS arrival patient was found to have SPO2 of 40% on room air and was placed on CPAP, given albuterol, Solu-Medrol, magnesium and IM epinephrine with increase of SPO2 to 70%. Patient states that she is vaccinated with 2 doses of Pfizer vaccine but has not received a booster. Patient did acknowledge contact with patient's that are Covid positive at home. Recommend emergency department patient was found to have acute respiratory failure and placed on BiPAP and repeat ABG showed improvement and CXR showed pulmonary edema. Patient was admitted to the hospitalist service as a COVID-19 PUI with COPD exacerbation. 04/05: Patient remained on BiPAP therapy and was transitioned to OptiFlow this afternoon. She had a Krueger catheter placed yesterday due to retention which will be discontinued today. Patient is positive for COVID-19. Echocardiogram completed and cardiology will pursue a conservative cardiac approach. Will start remdesivir per ID recommendation. 04/06: Krueger catheter replaced overnight d/t retention. Remains on Optiflow. Started remdesivir yesterday per ID recs and received Actemra 04/07: Currently on optiflow 30/50 saturating 96%, will coordinate with RT to attempt to de-escalate o2 req. OK with sats 90% and above. Continue supportive care with steroids, abx, remdesivir, int dose lovenox. 04/08: Remains on high flow 30/50. Continue supportive management for Covid as described below. Cardiology added amlodipine for better blood pressure control. Discussed with RN this morning that we should aggressively wean oxygen as long as saturations greater than 90%. Patient needs aggressive physical therapy and advised to self prone. Assessment and Plan: Neuro: NAD -Avoid delirium -Reorientation as needed -Aspiration/fall precautions -As needed analgesia Cardio: Possible CHF -Cardiology consulted, appreciate recommendations -IV Lasix -Echocardiogram shows mildly dilated right heart chambers, moderate tricuspid regurgitation, moderate pulmonary hypertension, RVSP 55-60 mmhg, LVEF 55 to 60% -Per cardiology: We will pursue conservative cardiac approach -Blood pressure monitor per protocol -As needed hydralazine -proBNP 1910 Amlodipine 10 mg p.o. daily Respiratory: Acute hypoxic hypercapnic respiratory failure, h/o asthma and COPD, former nicotine abuse -Pulmonology consulted, patient recommendations -BiPAP qhs -IV steroids -IV Lasix -Pulmicort, albuterol, DuoNeb, Singulair -SPO2 monitor per protocol -Supplemental oxygen as needed -Patient weaned to OptiFlow GI: MO -Cardiac diet -24 hours -3320ml -BR senakot -PPI : Urinary retention, hypochloremia, metabolic alkalosis -Krueger replaced on 04/06 d/t retention -reasses and remove as soon as possible -Trend BMP ID: COVID-[id number] PNA -Infectious disease consulted, appreciate recommendations -Droplet/isolation precautions -COVID-19 PCR positive -Patient states she received 2 doses of Pfizer vaccine but did not receive booster -Solu-Medrol -Ceftriaxone discontinued per ID -Azithromycin () -Trend COVID-19 inflammatory markers -Remdesivir (04/05-04/10) -Anticoagulation per hospital policy -Trend CMP while on remdesivir -s/p Actemra x1 -Self prone as tolerated Endo: Hyperglycemia -SSI -Accu-Cheks every 6 -Avoid hypoglycemia Heme: Leukocytosis (resolved) -Presented with leukocytosis at 11.8 -Trend CBC -Transfuse for hemoglobin less than 7 -Lovenox sub q The high probability of a clinically significant, sudden or life threatening deterioration of the [resp] system(s) required my full and direct attention, intervention and personal management. The aggregate critical care time was [60] minutes. This time is in addition to time spent performing reported procedures but includes the following: [x] Data Review and interpretation [x] Patient assessment and monitoring of vital signs [x] Documentation [x] Medication orders and management Disposition Plan: transfer to floor Total Time Spent with Patient (Minutes): 60 History Interval history: NO acute complaints. Respiratory symptoms have improved compared to yesterday. Remains on high flow nasal cannula at this time. Hospitalist Physical - Physical exam Narrative exam: Physical Exam: VITAL SIGNS: Reviewed. GENERAL: The patient appears normally developed, Vital signs as documented. Optiflow 50L/min and 30% HEAD: No signs of head trauma. EYES: Pupils are equal. Extraocular motions intact. EARS: Hearing grossly intact. MOUTH: Oropharynx is normal. NECK: No adenopathy, no JVD. CHEST: rhonchi bl lung jiemnez CARDIAC: Regular rate and rhythm. S1 and S2, without murmurs, gallops, or rubs. VASCULAR: No Edema. Peripheral pulses normal and equal in all extremities. ABDOMEN: Soft, non tender and non distended. No rebound or guarding, and no masses palpated. Bowel Sounds normal. MUSCULOSKELETAL: Good range of motion of all major joints. Extremities without clubbing, cyanosis or edema. NEUROLOGIC EXAM: Alert and oriented x 4. no focal sensory or strength deficits. PSYCHIATRIC: Mood normal. SKIN: detail exam as documented in skin assessment - Constitutional Vitals: Temp Pulse Resp BP Pulse Ox 98.0 F 47 L 16 144/68 93 04/08/21 05:49 04/08/21 05:49 04/08/21 05:49 04/08/21 05:49 04/08/21 05:49 General appearance: Present: no acute distress, obese, other HEART Score - HEART Score Troponin: Troponin T < 0.010 ng/mL (0.00-0.029) 04/04/21 17:53 Results - Labs CBC & Chem 7: 04/07/21 07:00 04/08/21 05:25 Labs: Laboratory Last Values WBC 5.5 K/mm3 (4.5-11.0) 04/07/21 07:00 RBC 4.03 M/mm3 (3.65-5.03) 04/07/21 07:00 Hgb 12.0 gm/dl (10.1-14.3) 04/07/21 07:00 Hct 39.2 % (30.3-42.9) 04/07/21 07:00 MCV 97 fl (79-97) 04/07/21 07:00 MCH 30 pg (28-32) 04/07/21 07:00 MCHC 31 % (30-34) 04/07/21 07:00 RDW 14.0 % (13.2-15.2) 04/07/21 07:00 Plt Count 216 K/mm3 (140-440) 04/07/21 07:00 Lymph % (Auto) 7.5 % (13.4-35.0) L 04/07/21 07:00 [place] % (Auto) 4.2 % (0.0-7.3) 04/07/21 07:00 Eos % (Auto) 0.0 % (0.0-4.3) 04/07/21 07:00 Baso % (Auto) 0.2 % (0.0-1.8) 04/07/21 07:00 Lymph # (Auto) 0.4 K/mm3 (1.2-5.4) L 04/07/21 07:00 [place] # (Auto) 0.2 K/mm3 (0.0-0.8) 04/07/21 07:00 Eos # (Auto) 0.0 K/mm3 (0.0-0.4) 04/07/21 07:00 Baso # (Auto) 0.0 K/mm3 (0.0-0.1) 04/07/21 07:00 Add Manual Diff Complete 04/05/21 05:01 Total Counted 100 04/05/21 05:01 Seg Neutrophils % 88.1 % (40.0-70.0) H 04/07/21 07:00 Seg Neuts % (Manual) 94.0 % (40.0-70.0) H 04/05/21 05:01 Band Neutrophils % 1.0 % 04/05/21 05:01 Lymphocytes % (Manual) 1.0 % (13.4-35.0) L 04/05/21 05:01 Monocytes % (Manual) 4.0 % (0.0-7.3) 04/05/21 05:01 Eosinophils % (Manual) 1.0 % (0.0-4.3) 04/04/21 17:53 Basophils % (Manual) 3.0 % (0.0-1.8) H 04/04/21 17:53 Nucleated RBC % Not Reportable 04/05/21 05:01 Seg Neutrophils # 4.8 K/mm3 (1.8-7.7) 04/07/21 07:00 Seg Neutrophils # Man 8.7 K/mm3 (1.8-7.7) H 04/05/21 05:01 Band Neutrophils # 0.1 K/mm3 04/05/21 05:01 Lymphocytes # (Manual) 0.1 K/mm3 (1.2-5.4) L 04/05/21 05:01 Abs React Lymphs (Man) 0.0 K/mm3 04/05/21 05:01 Monocytes # (Manual) 0.4 K/mm3 (0.0-0.8) 04/05/21 05:01 Eosinophils # (Manual) 0.0 K/mm3 (0.0-0.4) 04/05/21 05:01 Basophils # (Manual) 0.0 K/mm3 (0.0-0.1) 04/05/21 05:01 Metamyelocytes # 0.0 K/mm3 04/05/21 05:01 Myelocytes # 0.0 K/mm3 04/05/21 05:01 Promyelocytes # 0.0 K/mm3 04/05/21 05:01 Blast Cells # 0.0 K/mm3 04/05/21 05:01 WBC Morphology Not Reportable 04/05/21 05:01 Hypersegmented Neuts Not Reportable 04/05/21 05:01 Hyposegmented Neuts Not Reportable 04/05/21 05:01 Hypogranular Neuts Not Reportable 04/05/21 05:01 Smudge Cells Not Reportable 04/05/21 05:01 Toxic Granulation Not Reportable 04/05/21 05:01 Toxic Vacuolation Not Reportable 04/05/21 05:01 Dohle Bodies Not Reportable 04/05/21 05:01 Pelger-Huet Anomaly Not Reportable 04/05/21 05:01 Bronson Rods Not Reportable 04/05/21 05:01 Platelet Estimate Consistent w auto 04/05/21 05:01 Clumped Platelets Not Reportable 04/05/21 05:01 Plt Clumps, EDTA Not Reportable 04/05/21 05:01 Large Platelets Not Reportable 04/05/21 05:01 Giant Platelets Not Reportable 04/05/21 05:01 Platelet Satelliting Not Reportable 04/05/21 05:01 Plt Morphology Comment Not Reportable 04/05/21 05:01 RBC Morphology Not Reportable 04/05/21 05:01 Dimorphic RBCs Not Reportable 04/05/21 05:01 Polychromasia Not Reportable 04/05/21 05:01 Hypochromasia Not Reportable 04/05/21 05:01 Poikilocytosis Not Reportable 04/05/21 05:01 Anisocytosis 1+ 04/05/21 05:01 Microcytosis Not Reportable 04/05/21 05:01 Macrocytosis Not Reportable 04/05/21 05:01 Spherocytes Not Reportable 04/05/21 05:01 Pappenheimer Bodies Not Reportable 04/05/21 05:01 Sickle Cells Not Reportable 04/05/21 05:01 Target Cells Not Reportable 04/05/21 05:01 Tear Drop Cells Not Reportable 04/05/21 05:01 Ovalocytes Not Reportable 04/05/21 05:01 Helmet Cells Not Reportable 04/05/21 05:01 [place] Bodies Not Reportable 04/05/21 05:01 [place] Rings Not Reportable 04/05/21 05:01 Esequiel Cells Not Reportable 04/05/21 05:01 Bite Cells Not Reportable 04/05/21 05:01 Crenated Cell Not Reportable 04/05/21 05:01 Elliptocytes Not Reportable 04/05/21 05:01 Acanthocytes (Spur) Not Reportable 04/05/21 05:01 Rouleaux Not Reportable 04/05/21 05:01 Hemoglobin C Crystals Not Reportable 04/05/21 05:01 Schistocytes Not Reportable 04/05/21 05:01 Malaria parasites Not Reportable 04/05/21 05:01 Jesus Alberto Bodies Not Reportable 04/05/21 05:01 Hem Pathologist Commnt No 04/05/21 05:01 PT 15.0 Sec. (12.2-14.9) H 04/04/21 17:53 INR 1.06 (0.87-1.13) 04/04/21 17:53 D-Dimer 165.19 ng/mlDDU (0-234) 04/07/21 07:00 ABG pH 7.342 (7.320-7.450) 04/05/21 08:00 POC ABG pCO2 76.0 mmHg (32.0-48.0) H 04/05/21 08:00 ABG pCO2 86.8 mm Hg 04/04/21 Unknown POC ABG pO2 66.9 mmHg (83-108) L 04/05/21 08:00 ABG pO2 125.0 mm Hg (80.0-90.0) H 04/04/21 Unknown POC ABG HCO3 40.3 04/05/21 08:00 ABG HCO3 38.7 mmol/L (20.0-26.0) H 04/04/21 Unknown ABG O2 Saturation 93.5 (0-100) 04/05/21 08:00 ABG O2 Content 17.1 (0.0-44) 04/04/21 Unknown POC ABG Base Excess 11.3 04/05/21 08:00 ABG Base Excess 8.6 mmol/L (-2.0-3.0) H 04/04/21 Unknown ABG Hemoglobin 13.4 (12.0-17.5) 04/05/21 08:00 ABG Oxyhemoglobin 92.2 (94-98) L 04/05/21 08:00 ABG Carboxyhemoglobin 2.4 % (0.0-5.0) 04/04/21 Unknown ABG Methemoglobin 0.3 (0.0-1.5) 04/05/21 08:00 ABG Sodium 134.3 mmol/L (136.0-145.0) L 04/05/21 08:00 ABG Potassium 4.5 mmol/L (3.40-4.50) 04/05/21 08:00 ABG Chloride 91.0 mmol/L (98-107) L 04/05/21 08:00 ABG Glucose 156 mg/dL (65-95) H 04/05/21 08:00 Oxyhemoglobin 94.9 % (95.0-99.0) L 04/04/21 Unknown Carboxyhemoglobin 1.1 (0.5-1.5) 04/05/21 08:00 FiO2 80 % 04/04/21 Unknown FiO2 % 50.0 04/05/21 08:00 Sodium 140 mmol/L (137-145) 04/08/21 05:25 Potassium 4.0 mmol/L (3.6-5.0) 04/08/21 05:25 Chloride 91.2 mmol/L (98-107) L 04/08/21 05:25 Carbon Dioxide 40 mmol/L (22-30) H 04/08/21 05:25 Anion Gap 13 mmol/L 04/08/21 05:25 BUN 37 mg/dL (7-17) H 04/08/21 05:25 Creatinine 0.7 mg/dL (0.6-1.2) 04/08/21 05:25 Estimated GFR > 60 ml/min 04/08/21 05:25 BUN/Creatinine Ratio 53 % 04/08/21 05:25 Glucose 169 mg/dL (65-100) H 04/08/21 05:25 POC Glucose 161 mg/dL (70-105) H 04/08/21 07:38 Calcium 9.4 mg/dL (8.4-10.2) 04/08/21 05:25 Magnesium 2.90 mg/dL (1.7-2.3) H 04/04/21 17:53 Ferritin 166.2 ng/mL (10.0-200.0) 04/07/21 07:00 Total Bilirubin 0.80 mg/dL (0.1-1.2) 04/08/21 05:25 AST 47 units/L (5-40) H 04/08/21 05:25 ALT 36 units/L (7-56) 04/08/21 05:25 Alkaline Phosphatase 46 units/L (35-129) 04/08/21 05:25 Lactate Dehydrogenase 294 units/L (91-180) H 04/07/21 07:00 Troponin T < 0.010 ng/mL (0.00-0.029) 04/04/21 17:53 C-Reactive Protein 3.10 mg/dL (0.00-1.30) H 04/07/21 07:00 NT-Pro-B Natriuret Pep 1911 pg/mL (0-450) H 04/04/21 17:53 Total Protein 6.5 g/dL (6.3-8.2) 04/08/21 05:25 Albumin 3.7 g/dL (3.9-5) L 04/08/21 05:25 Albumin/Globulin Ratio 1.3 % 04/08/21 05:25 Procalcitonin 0.07 ng/mL (<0.15) 04/04/21 20:30 Arterial Blood Glucose 156 mg/dL (65-95) H 04/05/21 08:00 Arterial Blood Ionized Calcium 4.6 mg/dL (4.6-5.3) 04/05/21 08:00 Urine Color Straw (Yellow) 04/06/21 11:05 Urine Turbidity Clear (Clear) 04/06/21 11:05 Urine pH 5.0 (5.0-7.0) 04/06/21 11:05 Ur Specific [place] 1.006 (1.003-1.030) 04/06/21 11:05 Urine Protein <15 mg/dl mg/dL (Negative) 04/06/21 11:05 Urine Glucose (UA) Neg mg/dL (Negative) 04/06/21 11:05 Urine Ketones Neg mg/dL (Negative) 04/06/21 11:05 Urine Blood Mod (Negative) 04/06/21 11:05 Urine Nitrite Neg (Negative) 04/06/21 11:05 Urine Bilirubin Neg (Negative) 04/06/21 11:05 Urine Urobilinogen < 2.0 mg/dL (<2.0) 04/06/21 11:05 Ur Leukocyte Esterase Neg (Negative) 04/06/21 11:05 Urine WBC (Auto) 1.0 /HPF (0.0-6.0) 04/06/21 11:05 Urine RBC (Auto) 13.0 /HPF (0.0-6.0) 04/06/21 11:05 U Epithel Cells (Auto) 6.0 /HPF (0-13.0) 04/06/21 11:05 Urine Mucus Few /HPF 04/06/21 11:05 Coronavirus (PCR) Positive (Negative) A 04/05/21 Unknown Microbiology: Microbiology 04/06/21 11:05 Urine,Catheterized - Indwelling Catheter Urine Culture - Preliminary NO GROWTH AFTER 24 HOURS Krueger/IV: Voiding Method Indwelling Catheter Active Medications - Current Medications Current Medications: Generic Name Dose Route Start Last Admin Trade Name Freq PRN Reason Stop Dose Admin Acetaminophen 650 mg 04/04/21 21:56 Acetaminophen 325 Mg Tab PO Q4H PRN Pain MILD(1-3)/Fever >100.5/MONAE Albuterol 2.5 mg 04/04/21 21:56 04/07/21 16:40 Albuterol 2.5 Mg/3 Ml Nebu IH 2.5 mg Q4HRT PRN Administration Shortness Of Breath Azithromycin 500 mg 04/06/21 22:00 04/07/21 21:49 Azithromycin 250 Mg Tab PO 04/09/21 22:01 500 mg 2200 JULIO Administration Protocol Dextrose 50 ml 04/05/21 17:22 Dextrose 50% In Water (25gm) 50 Ml Syringe IV Q30MIN PRN Hypoglycemia Protocol Enoxaparin Sodium 40 mg 04/06/21 22:00 04/07/21 21:46 Enoxaparin 40 Mg/0.4 Ml Inj SUB-Q 40 mg BID JULIO Administration Protocol Famotidine 20 mg 04/04/21 22:00 04/07/21 21:47 Famotidine 20 Mg Tab PO 20 mg BID JULIO Administration Furosemide 40 mg 04/05/21 10:00 04/07/21 10:29 Furosemide 40 Mg/4 Ml Inj IV 40 mg QDAY JULIO Administration Hydralazine HCl 10 mg 04/04/21 22:13 04/04/21 22:50 Hydralazine 20 Mg/1 Ml Inj IV 10 mg Q6H PRN Administration Blood Pressure Hydromorphone HCl 0.5 mg 04/04/21 21:56 04/08/21 01:45 Hydromorphone 1 Mg/1 Ml Inj IV 0.5 mg Q3H PRN Administration Pain , Severe (7-10) REMDESIVIR 100 mg/ Sodium 250 mls @ 500 mls/hr 04/06/21 21:00 04/08/21 01:52 Chloride IV 04/09/21 21:29 Infused Q24HR@2100 [facility] Infusion Insulin Human Regular 0 units 04/05/21 22:00 04/07/21 22:08 Insulin Regular, Human 100 Units/1 Ml SUB-Q 1 units ACHS JULIO Administration Protocol Ketorolac Tromethamine 15 mg 04/07/21 12:00 04/07/21 16:31 Ketorolac 30 Mg/1 Ml Inj IV 04/12/21 11:59 15 mg Q8H PRN Administration Pain, moderate (4-6) Methylprednisolone Sodium Succinate 40 mg 04/05/21 00:00 04/08/21 06:25 Methylprednisolone Sod Succinate 40 Mg/1 Ml Inj IV 40 mg Q6HR JULIO Administration Montelukast Sodium 10 mg 04/04/21 22:00 04/07/21 21:48 Montelukast 10 Mg Tab PO 10 mg QHS JULIO Administration Ondansetron HCl 4 mg 04/04/21 21:56 Ondansetron 4 Mg/2 Ml Inj IV Q8H PRN Nausea And Vomiting Senna 17.2 mg 04/06/21 22:00 04/07/21 22:06 Sennosides 8.6 Mg Tab PO Not Given QHS JULIO Sodium Chloride 10 ml 04/04/21 22:00 04/07/21 21:49 Sodium Chloride 0.9% 10 Ml Flush Syringe IV 10 ml BID JULIO Administration Sodium Chloride 10 ml 04/04/21 21:56 Sodium Chloride 0.9% 10 Ml Flush Syringe IV PRN PRN LINE FLUSH Sodium Chloride 50 ml 04/06/21 22:00 04/07/21 21:46 Sodium Chloride 0.9% 50 Ml Ivpb IV 04/09/21 22:01 50 ml Q24H JULIO Administration
[2021-04-08] MEDS: ENOXAPARIN 40 MG/0.4 ML INJ SUB-Q SCH ×2 (09:16→22:31)
[2021-04-08] MEDS: FUROSEMIDE 40 MG/4 ML INJ IV SCH (09:16)
[2021-04-08] MEDS: INSULIN REGULAR, HUMAN 100 UNITS/1 ML SUB-Q SCH ×4 (09:16→22:37)
[2021-04-08] MEDS: FAMOTIDINE 20 MG TAB PO SCH ×2 (09:16→22:30)
--- NOTE | 2021-04-08 09:24 | Progress Note ---
Assessment and Plan Cultures: SARS CoV2 PCR: positive 04/06/2021 urine culture: No growth A/P: 50-year-old female admitted with: #COVID-19 pneumonia: severe disease requiring BiPAP on admission with high CRP. S/P Actemra, on steroids and remdesivir. D-dimer improved to 165, ferritin 166, CRP 3.1. #Acute hypercapnic and hypoxic respiratory failure: Requiring BiPAP initially in ICU, now on HFNC #Morbid obesity Recs: - on steroids per pulmonary, complete at least 10 days - complete remdesivir course - anticoagulation per protocol based on d-dimer - Complete 5 days of azithromycin - S/P Actemra 04/06/2021 ID will sign off. Please call with questions. Sean Fuentes MD, FACP [facility] ([facility] O: [phone] F: [phone] Subjective Date of service: 04/08/21 Interval history: No fever. Remains on high flow nasal cannula. Objective - Exam Narrative Exam: Physical Exam (reviewed in chart to minimize risk of transmission) Constitutional: deferred Head, Ears, Nose: deferred Eyes: deferred Neck: deferred Oral: deferred Cardiovascular: deferred Respiratory: deferred GI: deferred Musculoskeletal: deferred Skin: deferred Hem/Lymphatic: deferred Psych: deferred Neurological: deferred - Constitutional Vitals: Vital Signs Temp Pulse Resp BP Pulse Ox 98.0 F 47 L 16 144/68 96 04/08/21 05:49 04/08/21 05:49 04/08/21 05:49 04/08/21 05:49 04/08/21 08:00 Temperature -Last 24 Hours Temperature 98.0 F Temperature 97.9 F Temperature 98.6 F Temperature 97.8 F - Labs CBC & Chem 7: 04/07/21 07:00 04/08/21 05:25 Labs: Abnormal lab results 04/07/21 04/07/21 04/08/21 Range/Units 12:21 21:58 05:25 Chloride 91.2 L (98-107) mmol/L Carbon Dioxide 40 H (22-30) mmol/L BUN 37 H (7-17) mg/dL Glucose 169 H (65-100) mg/dL POC Glucose 159 H 180 H (70-105) mg/dL AST 47 H (5-40) units/L Albumin 3.7 L (3.9-5) g/dL 04/08/21 Range/Units 07:38 Chloride (98-107) mmol/L Carbon Dioxide (22-30) mmol/L BUN (7-17) mg/dL Glucose (65-100) mg/dL POC Glucose 161 H (70-105) mg/dL AST (5-40) units/L Albumin (3.9-5) g/dL
[2021-04-08] MEDS ORDERED: FLU VACC QUAD 2021-22(6MOS UP)/PF 60 MCG/0.5 ML SYRINGE IM ONE (12:00)
--- NOTE | 2021-04-08 12:57 | Progress Note ---
Assessment and Plan 50 y/o obese female with some form of obstructive lung disease admitted with acute hypoxic hypercapnic respiratory failure. 04/08/21: No new recs for today. Please wean oxygen more aggressively. 04/07/21: Continue daily net negative state. Continue steroids. Prone. Wean FiO2 for sats >88% 04/06/21: Stop Pulmicort. Puffers only. Lasix given pulmonary HTN seen on echo. Continue steroids. Needs to prone. Stable for transfer to COVID floor. 1. Wean Bipap as tolerated 2. Agree with steroids at current dosing 3. Added BID pulmicort 4. Agree with diuresis. 5. Needs echo 6. Will continue to follow. Subjective Date of service: 04/08/21 Interval history: REmains on HFNC settings the same as yesterday. Good sats. Objective Vital Signs - 12hr 04/08/21 04/08/21 04/08/21 02:20 05:49 08:00 Temperature 98.0 F Pulse Rate 47 L Respiratory 16 Rate Blood Pressure 144/68 Blood Pressure [Right] O2 Sat by Pulse 92 93 96 Oximetry 04/08/21 04/08/21 10:00 11:50 Temperature 97.3 F L Pulse Rate 56 L Respiratory 18 Rate Blood Pressure Blood Pressure 138/82 [Right] O2 Sat by Pulse 94 95 Oximetry Constitutional: no acute distress, alert ENT: other (full face mask bipap) Neck: supple Effort: normal Ascultation: Bilateral: diminished breath sounds Percussion: Bilateral: not dull Cardiovascular: regular rate and rhythm Gastrointestinal: normoactive bowel sounds Integumentary: normal Extremities: edema CBC and BMP: 04/07/21 07:00 04/08/21 05:25 ABG, PT/INR, D-dimer: ABG ABG pH 7.342 (7.320-7.450) 04/05/21 08:00 POC ABG pCO2 76.0 mmHg (32.0-48.0) H 04/05/21 08:00 ABG pCO2 86.8 mm Hg 04/04/21 Unknown POC ABG pO2 66.9 mmHg (83-108) L 04/05/21 08:00 ABG pO2 125.0 mm Hg (80.0-90.0) H 04/04/21 Unknown POC ABG HCO3 40.3 04/05/21 08:00 ABG O2 Saturation 93.5 (0-100) 04/05/21 08:00 PT/INR, D-dimer PT 15.0 Sec. (12.2-14.9) H 04/04/21 17:53 INR 1.06 (0.87-1.13) 04/04/21 17:53 D-Dimer 165.19 ng/mlDDU (0-234) 04/07/21 07:00 Abnormal lab findings: Abnormal Labs 04/04/21 04/04/21 04/04/21 17:53 17:53 17:53 WBC 11.8 H Hct 45.5 H MCV 99 H MCHC 29 L Lymph % (Auto) Lymph # (Auto) Seg Neutrophils % Seg Neuts % (Manual) Lymphocytes % (Manual) Monocytes % (Manual) 17.0 H Basophils % (Manual) 3.0 H Seg Neutrophils # Man Lymphocytes # (Manual) Monocytes # (Manual) 2.0 H Basophils # (Manual) 0.4 H PT 15.0 H D-Dimer ABG pH POC ABG pCO2 POC ABG pO2 ABG pO2 ABG HCO3 ABG Base Excess ABG Oxyhemoglobin ABG Sodium ABG Chloride ABG Glucose Oxyhemoglobin Sodium 136 L Chloride 87.0 L Carbon Dioxide 31 H BUN 20 H Creatinine Glucose 130 H POC Glucose Magnesium 2.90 H Ferritin AST 43 H Lactate Dehydrogenase C-Reactive Protein NT-Pro-B Natriuret Pep 1911 H Albumin Arterial Blood Glucose Coronavirus (PCR) 04/04/21 04/04/21 04/04/21 18:00 20:30 20:30 WBC Hct MCV MCHC Lymph % (Auto) Lymph # (Auto) Seg Neutrophils % Seg Neuts % (Manual) Lymphocytes % (Manual) Monocytes % (Manual) Basophils % (Manual) Seg Neutrophils # Man Lymphocytes # (Manual) Monocytes # (Manual) Basophils # (Manual) PT D-Dimer 283.80 H ABG pH 7.072 L* POC ABG pCO2 POC ABG pO2 ABG pO2 163.4 H ABG HCO3 41.1 H ABG Base Excess 6.0 H ABG Oxyhemoglobin ABG Sodium ABG Chloride ABG Glucose Oxyhemoglobin 94.8 L Sodium Chloride Carbon Dioxide BUN Creatinine Glucose POC Glucose Magnesium Ferritin 236.2 H AST Lactate Dehydrogenase C-Reactive Protein NT-Pro-B Natriuret Pep Albumin Arterial Blood Glucose Coronavirus (PCR) 04/04/21 04/04/21 04/05/21 20:30 Unknown 05:01 WBC Hct MCV MCHC Lymph % (Auto) Lymph # (Auto) Seg Neutrophils % Seg Neuts % (Manual) 94.0 H Lymphocytes % (Manual) 1.0 L Monocytes % (Manual) Basophils % (Manual) Seg Neutrophils # Man 8.7 H Lymphocytes # (Manual) 0.1 L Monocytes # (Manual) Basophils # (Manual) PT D-Dimer ABG pH 7.267 L POC ABG pCO2 POC ABG pO2 ABG pO2 125.0 H ABG HCO3 38.7 H ABG Base Excess 8.6 H ABG Oxyhemoglobin ABG Sodium ABG Chloride ABG Glucose Oxyhemoglobin 94.9 L Sodium Chloride Carbon Dioxide BUN Creatinine Glucose POC Glucose Magnesium Ferritin AST Lactate Dehydrogenase 434 H C-Reactive Protein 7.90 H NT-Pro-B Natriuret Pep Albumin Arterial Blood Glucose Coronavirus (PCR) 04/05/21 04/05/21 04/05/21 05:01 08:00 18:25 WBC Hct MCV MCHC Lymph % (Auto) Lymph # (Auto) Seg Neutrophils % Seg Neuts % (Manual) Lymphocytes % (Manual) Monocytes % (Manual) Basophils % (Manual) Seg Neutrophils # Man Lymphocytes # (Manual) Monocytes # (Manual) Basophils # (Manual) PT D-Dimer ABG pH POC ABG pCO2 76.0 H POC ABG pO2 66.9 L ABG pO2 ABG HCO3 ABG Base Excess ABG Oxyhemoglobin 92.2 L ABG Sodium 134.3 L ABG Chloride 91.0 L ABG Glucose 156 H Oxyhemoglobin Sodium 136 L Chloride 91.5 L 87.1 L Carbon Dioxide 35 H 36 H BUN 23 H 25 H Creatinine Glucose 178 H 127 H POC Glucose Magnesium Ferritin AST 68 H Lactate Dehydrogenase C-Reactive Protein NT-Pro-B Natriuret Pep Albumin 3.8 L Arterial Blood Glucose 156 H Coronavirus (PCR) 04/05/21 04/05/21 04/06/21 22:33 Unknown 05:36 WBC Hct MCV MCHC Lymph % (Auto) Lymph # (Auto) Seg Neutrophils % Seg Neuts % (Manual) Lymphocytes % (Manual) Monocytes % (Manual) Basophils % (Manual) Seg Neutrophils # Man Lymphocytes # (Manual) Monocytes # (Manual) Basophils # (Manual) PT D-Dimer ABG pH POC ABG pCO2 POC ABG pO2 ABG pO2 ABG HCO3 ABG Base Excess ABG Oxyhemoglobin ABG Sodium ABG Chloride ABG Glucose Oxyhemoglobin Sodium Chloride 88.5 L Carbon Dioxide 37 H BUN 26 H Creatinine Glucose 132 H POC Glucose 154 H Magnesium Ferritin AST 74 H Lactate Dehydrogenase C-Reactive Protein NT-Pro-B Natriuret Pep Albumin Arterial Blood Glucose Coronavirus (PCR) Positive A 04/06/21 04/06/21 04/06/21 07:56 11:52 16:36 WBC Hct MCV MCHC Lymph % (Auto) Lymph # (Auto) Seg Neutrophils % Seg Neuts % (Manual) Lymphocytes % (Manual) Monocytes % (Manual) Basophils % (Manual) Seg Neutrophils # Man Lymphocytes # (Manual) Monocytes # (Manual) Basophils # (Manual) PT D-Dimer ABG pH POC ABG pCO2 POC ABG pO2 ABG pO2 ABG HCO3 ABG Base Excess ABG Oxyhemoglobin ABG Sodium ABG Chloride ABG Glucose Oxyhemoglobin Sodium Chloride Carbon Dioxide BUN Creatinine Glucose POC Glucose 138 H 142 H 152 H Magnesium Ferritin AST Lactate Dehydrogenase C-Reactive Protein NT-Pro-B Natriuret Pep Albumin Arterial Blood Glucose Coronavirus (PCR) 04/06/21 04/07/21 04/07/21 22:51 07:00 07:00 WBC Hct MCV MCHC Lymph % (Auto) 7.5 L Lymph # (Auto) 0.4 L Seg Neutrophils % 88.1 H Seg Neuts % (Manual) Lymphocytes % (Manual) Monocytes % (Manual) Basophils % (Manual) Seg Neutrophils # Man Lymphocytes # (Manual) Monocytes # (Manual) Basophils # (Manual) PT D-Dimer ABG pH POC ABG pCO2 POC ABG pO2 ABG pO2 ABG HCO3 ABG Base Excess ABG Oxyhemoglobin ABG Sodium ABG Chloride ABG Glucose Oxyhemoglobin Sodium Chloride 88.9 L Carbon Dioxide 39 H BUN 31 H Creatinine 0.5 L Glucose 158 H POC Glucose 137 H Magnesium Ferritin AST 61 H Lactate Dehydrogenase 294 H C-Reactive Protein 3.10 H NT-Pro-B Natriuret Pep Albumin Arterial Blood Glucose Coronavirus (PCR) 04/07/21 04/07/21 04/07/21 07:52 12:21 21:58 WBC Hct MCV MCHC Lymph % (Auto) Lymph # (Auto) Seg Neutrophils % Seg Neuts % (Manual) Lymphocytes % (Manual) Monocytes % (Manual) Basophils % (Manual) Seg Neutrophils # Man Lymphocytes # (Manual) Monocytes # (Manual) Basophils # (Manual) PT D-Dimer ABG pH POC ABG pCO2 POC ABG pO2 ABG pO2 ABG HCO3 ABG Base Excess ABG Oxyhemoglobin ABG Sodium ABG Chloride ABG Glucose Oxyhemoglobin Sodium Chloride Carbon Dioxide BUN Creatinine Glucose POC Glucose 139 H 159 H 180 H Magnesium Ferritin AST Lactate Dehydrogenase C-Reactive Protein NT-Pro-B Natriuret Pep Albumin Arterial Blood Glucose Coronavirus (PCR) 04/08/21 04/08/21 04/08/21 05:25 07:38 10:54 WBC Hct MCV MCHC Lymph % (Auto) Lymph # (Auto) Seg Neutrophils % Seg Neuts % (Manual) Lymphocytes % (Manual) Monocytes % (Manual) Basophils % (Manual) Seg Neutrophils # Man Lymphocytes # (Manual) Monocytes # (Manual) Basophils # (Manual) PT D-Dimer ABG pH POC ABG pCO2 POC ABG pO2 ABG pO2 ABG HCO3 ABG Base Excess ABG Oxyhemoglobin ABG Sodium ABG Chloride ABG Glucose Oxyhemoglobin Sodium Chloride 91.2 L Carbon Dioxide 40 H BUN 37 H Creatinine Glucose 169 H POC Glucose 161 H 189 H Magnesium Ferritin AST 47 H Lactate Dehydrogenase C-Reactive Protein NT-Pro-B Natriuret Pep Albumin 3.7 L Arterial Blood Glucose Coronavirus (PCR)
--- NOTE | 2021-04-08 13:00 | Progress Note ---
Assessment and Plan - Patient Problems (1) Acute respiratory failure with hypoxia Current Visit: Yes Status: Acute Plan to address problem: Respiratory failure due to acute Covid infection. Continue management as outlined by infectious disease and internal medicine. (2) Sinus bradycardia Current Visit: Yes Status: Acute Plan to address problem: We will avoid AV ander blocking agents. I will check a thyroid profile and continue remote telemetry monitoring. (3) Hypertension Current Visit: Yes Status: Acute Plan to address problem: For hypertension, I will start amlodipine 10 mg daily. Subjective Date of service: 04/08/21 Interval history: The patient is comfortable, no new cardiac complaints. occupational therapist's assistant shows a persistent, sinus bradycardia, heart rate currently 53. Patient is not on AV ander blocking agents. Blood pressure is mildly elevated 130s to 140 systolic. Objective Vital Signs Temp Pulse Pulse Resp Resp BP BP 04/08/21 11:50 97.3 F L 56 L 18 138/82 04/08/21 10:00 04/08/21 08:00 04/08/21 05:49 98.0 F 47 L 16 144/68 04/08/21 02:20 04/08/21 00:00 90 04/07/21 22:03 97.9 F 72 20 140/76 04/07/21 22:00 04/07/21 20:00 90 04/07/21 18:08 98.6 F 55 L 24 102/42 04/07/21 17:22 04/07/21 16:40 51 L 20 04/07/21 14:00 04/07/21 13:09 97.8 F 59 L 24 102/49 Pulse Ox 04/08/21 11:50 95 04/08/21 10:00 94 04/08/21 08:00 96 04/08/21 05:49 93 04/08/21 02:20 92 04/08/21 00:00 04/07/21 22:03 89 04/07/21 22:00 89 04/07/21 20:00 94 04/07/21 18:08 94 04/07/21 17:22 96 04/07/21 16:40 04/07/21 14:00 95 04/07/21 13:09 96 - Physical Examination Narrative exam: Full physical exam is deferred due to acute Covid infection. General: No Apparent Distress - Labs and Meds Cardiac Enzymes 04/08/21 Range/Units 05:25 AST 47 H (5-40) units/L Comprehensive Metabolic Panel 04/08/21 Range/Units 05:25 Sodium 140 (137-145) mmol/L Potassium 4.0 (3.6-5.0) mmol/L Chloride 91.2 L (98-107) mmol/L Carbon Dioxide 40 H (22-30) mmol/L BUN 37 H (7-17) mg/dL Creatinine 0.7 (0.6-1.2) mg/dL Glucose 169 H (65-100) mg/dL Calcium 9.4 (8.4-10.2) mg/dL AST 47 H (5-40) units/L ALT 36 (7-56) units/L Alkaline Phosphatase 46 (35-129) units/L Total Protein 6.5 (6.3-8.2) g/dL Albumin 3.7 L (3.9-5) g/dL
[2021-04-08 14:30] LABS: Free T4 (Free Thyroxine) 1.18 ng/dL (0.76-1.46)
[2021-04-08] MEDS: ALBUTEROL 2.5 MG/3 ML NEBU IH PRN (14:50)
[2021-04-08] MEDS: amLODIPine 10 MG TAB PO SCH (14:55)
[2021-04-08] MEDS: traMADol 50 MG TAB PO PRN (14:56)
[2021-04-08] MEDS: AZITHROMYCIN 250 MG TAB PO SCH (22:29)
[2021-04-08] MEDS: REMDESIVIR 100 MG in SODIUM CHLORIDE 0.9% 250ML 250 ML IV SCH (22:31)
[2021-04-08] MEDS: SENNOSIDES 8.6 MG TAB PO SCH (22:31)
[2021-04-08] MEDS: SODIUM CHLORIDE 0.9% 50 ML IVPB IV SCH (22:32)
[2021-04-08] MEDS: MONTELUKAST 10 MG TAB PO SCH (22:35)
[2021-04-08] MEDS: KETOROLAC 30 MG/1 ML INJ IV PRN (22:49)
[2021-04-09] MEDS: methylPREDNISolone Sod Succinate 40 MG/1 ML INJ IV SCH ×3 (06:26→17:14)
[2021-04-09 07:14] LABS: C-Reactive Protein 0.8 mg/dL (0.00-1.30)
[2021-04-09] MEDS: ENOXAPARIN 40 MG/0.4 ML INJ SUB-Q SCH ×2 (09:50→21:27)
[2021-04-09] MEDS: FAMOTIDINE 20 MG TAB PO SCH ×2 (09:51→21:28)
[2021-04-09] MEDS: FUROSEMIDE 40 MG/4 ML INJ IV SCH (09:51)
[2021-04-09] MEDS: amLODIPine 10 MG TAB PO SCH (09:51)
[2021-04-09] MEDS: INSULIN REGULAR, HUMAN 100 UNITS/1 ML SUB-Q SCH ×4 (09:51→22:46)
--- NOTE | 2021-04-09 11:04 | Progress Note ---
Assessment and Plan 50 y/o obese female with some form of obstructive lung disease admitted with acute hypoxic hypercapnic respiratory failure. 04/09/21: Prone, wean FiO2, steroids. mOnitor fluid balance. 04/08/21: No new recs for today. Please wean oxygen more aggressively. 04/07/21: Continue daily net negative state. Continue steroids. Prone. Wean FiO2 for sats >88% 04/06/21: Stop Pulmicort. Puffers only. Lasix given pulmonary HTN seen on echo. Continue steroids. Needs to prone. Stable for transfer to COVID floor. 1. Wean Bipap as tolerated 2. Agree with steroids at current dosing 3. Added BID pulmicort 4. Agree with diuresis. 5. Needs echo 6. Will continue to follow. Subjective Date of service: 04/09/21 Interval history: Still on HFNC but down to 45% Objective Vital Signs - 12hr 04/08/21 04/09/21 04/09/21 23:21 01:00 06:12 Temperature 98.2 F 98.4 F Pulse Rate 51 L 54 L Respiratory 18 19 18 Rate Blood Pressure 131/65 116/49 O2 Sat by Pulse 93 96 98 Oximetry 04/09/21 08:00 Temperature Pulse Rate Respiratory Rate Blood Pressure O2 Sat by Pulse 98 Oximetry Constitutional: no acute distress, alert ENT: other (full face mask bipap) Neck: supple Effort: normal Ascultation: Bilateral: diminished breath sounds Percussion: Bilateral: not dull Cardiovascular: regular rate and rhythm Gastrointestinal: normoactive bowel sounds Integumentary: normal Extremities: edema CBC and BMP: 04/07/21 07:00 04/08/21 05:25 ABG, PT/INR, D-dimer: ABG ABG pH 7.342 (7.320-7.450) 04/05/21 08:00 POC ABG pCO2 76.0 mmHg (32.0-48.0) H 04/05/21 08:00 ABG pCO2 86.8 mm Hg 04/04/21 Unknown POC ABG pO2 66.9 mmHg (83-108) L 04/05/21 08:00 ABG pO2 125.0 mm Hg (80.0-90.0) H 04/04/21 Unknown POC ABG HCO3 40.3 04/05/21 08:00 ABG O2 Saturation 93.5 (0-100) 04/05/21 08:00 PT/INR, D-dimer PT 15.0 Sec. (12.2-14.9) H 04/04/21 17:53 INR 1.06 (0.87-1.13) 04/04/21 17:53 D-Dimer 205.77 ng/mlDDU (0-234) 04/09/21 06:21 Abnormal lab findings: Abnormal Labs 04/04/21 04/04/21 04/04/21 17:53 17:53 17:53 WBC 11.8 H Hct 45.5 H MCV 99 H MCHC 29 L Lymph % (Auto) Lymph # (Auto) Seg Neutrophils % Seg Neuts % (Manual) Lymphocytes % (Manual) Monocytes % (Manual) 17.0 H Basophils % (Manual) 3.0 H Seg Neutrophils # Man Lymphocytes # (Manual) Monocytes # (Manual) 2.0 H Basophils # (Manual) 0.4 H PT 15.0 H D-Dimer ABG pH POC ABG pCO2 POC ABG pO2 ABG pO2 ABG HCO3 ABG Base Excess ABG Oxyhemoglobin ABG Sodium ABG Chloride ABG Glucose Oxyhemoglobin Sodium 136 L Chloride 87.0 L Carbon Dioxide 31 H BUN 20 H Creatinine Glucose 130 H POC Glucose Magnesium 2.90 H Ferritin AST 43 H Lactate Dehydrogenase C-Reactive Protein NT-Pro-B Natriuret Pep 1911 H Albumin TSH Arterial Blood Glucose Coronavirus (PCR) 04/04/21 04/04/21 04/04/21 18:00 20:30 20:30 WBC Hct MCV MCHC Lymph % (Auto) Lymph # (Auto) Seg Neutrophils % Seg Neuts % (Manual) Lymphocytes % (Manual) Monocytes % (Manual) Basophils % (Manual) Seg Neutrophils # Man Lymphocytes # (Manual) Monocytes # (Manual) Basophils # (Manual) PT D-Dimer 283.80 H ABG pH 7.072 L* POC ABG pCO2 POC ABG pO2 ABG pO2 163.4 H ABG HCO3 41.1 H ABG Base Excess 6.0 H ABG Oxyhemoglobin ABG Sodium ABG Chloride ABG Glucose Oxyhemoglobin 94.8 L Sodium Chloride Carbon Dioxide BUN Creatinine Glucose POC Glucose Magnesium Ferritin 236.2 H AST Lactate Dehydrogenase C-Reactive Protein NT-Pro-B Natriuret Pep Albumin TSH Arterial Blood Glucose Coronavirus (PCR) 04/04/21 04/04/21 04/05/21 20:30 Unknown 05:01 WBC Hct MCV MCHC Lymph % (Auto) Lymph # (Auto) Seg Neutrophils % Seg Neuts % (Manual) 94.0 H Lymphocytes % (Manual) 1.0 L Monocytes % (Manual) Basophils % (Manual) Seg Neutrophils # Man 8.7 H Lymphocytes # (Manual) 0.1 L Monocytes # (Manual) Basophils # (Manual) PT D-Dimer ABG pH 7.267 L POC ABG pCO2 POC ABG pO2 ABG pO2 125.0 H ABG HCO3 38.7 H ABG Base Excess 8.6 H ABG Oxyhemoglobin ABG Sodium ABG Chloride ABG Glucose Oxyhemoglobin 94.9 L Sodium Chloride Carbon Dioxide BUN Creatinine Glucose POC Glucose Magnesium Ferritin AST Lactate Dehydrogenase 434 H C-Reactive Protein 7.90 H NT-Pro-B Natriuret Pep Albumin TSH Arterial Blood Glucose Coronavirus (PCR) 04/05/21 04/05/21 04/05/21 05:01 08:00 18:25 WBC Hct MCV MCHC Lymph % (Auto) Lymph # (Auto) Seg Neutrophils % Seg Neuts % (Manual) Lymphocytes % (Manual) Monocytes % (Manual) Basophils % (Manual) Seg Neutrophils # Man Lymphocytes # (Manual) Monocytes # (Manual) Basophils # (Manual) PT D-Dimer ABG pH POC ABG pCO2 76.0 H POC ABG pO2 66.9 L ABG pO2 ABG HCO3 ABG Base Excess ABG Oxyhemoglobin 92.2 L ABG Sodium 134.3 L ABG Chloride 91.0 L ABG Glucose 156 H Oxyhemoglobin Sodium 136 L Chloride 91.5 L 87.1 L Carbon Dioxide 35 H 36 H BUN 23 H 25 H Creatinine Glucose 178 H 127 H POC Glucose Magnesium Ferritin AST 68 H Lactate Dehydrogenase C-Reactive Protein NT-Pro-B Natriuret Pep Albumin 3.8 L TSH Arterial Blood Glucose 156 H Coronavirus (PCR) 04/05/21 04/05/21 04/06/21 22:33 Unknown 05:36 WBC Hct MCV MCHC Lymph % (Auto) Lymph # (Auto) Seg Neutrophils % Seg Neuts % (Manual) Lymphocytes % (Manual) Monocytes % (Manual) Basophils % (Manual) Seg Neutrophils # Man Lymphocytes # (Manual) Monocytes # (Manual) Basophils # (Manual) PT D-Dimer ABG pH POC ABG pCO2 POC ABG pO2 ABG pO2 ABG HCO3 ABG Base Excess ABG Oxyhemoglobin ABG Sodium ABG Chloride ABG Glucose Oxyhemoglobin Sodium Chloride 88.5 L Carbon Dioxide 37 H BUN 26 H Creatinine Glucose 132 H POC Glucose 154 H Magnesium Ferritin AST 74 H Lactate Dehydrogenase C-Reactive Protein NT-Pro-B Natriuret Pep Albumin TSH Arterial Blood Glucose Coronavirus (PCR) Positive A 04/06/21 04/06/21 04/06/21 07:56 11:52 16:36 WBC Hct MCV MCHC Lymph % (Auto) Lymph # (Auto) Seg Neutrophils % Seg Neuts % (Manual) Lymphocytes % (Manual) Monocytes % (Manual) Basophils % (Manual) Seg Neutrophils # Man Lymphocytes # (Manual) Monocytes # (Manual) Basophils # (Manual) PT D-Dimer ABG pH POC ABG pCO2 POC ABG pO2 ABG pO2 ABG HCO3 ABG Base Excess ABG Oxyhemoglobin ABG Sodium ABG Chloride ABG Glucose Oxyhemoglobin Sodium Chloride Carbon Dioxide BUN Creatinine Glucose POC Glucose 138 H 142 H 152 H Magnesium Ferritin AST Lactate Dehydrogenase C-Reactive Protein NT-Pro-B Natriuret Pep Albumin TSH Arterial Blood Glucose Coronavirus (PCR) 04/06/21 04/07/21 04/07/21 22:51 07:00 07:00 WBC Hct MCV MCHC Lymph % (Auto) 7.5 L Lymph # (Auto) 0.4 L Seg Neutrophils % 88.1 H Seg Neuts % (Manual) Lymphocytes % (Manual) Monocytes % (Manual) Basophils % (Manual) Seg Neutrophils # Man Lymphocytes # (Manual) Monocytes # (Manual) Basophils # (Manual) PT D-Dimer ABG pH POC ABG pCO2 POC ABG pO2 ABG pO2 ABG HCO3 ABG Base Excess ABG Oxyhemoglobin ABG Sodium ABG Chloride ABG Glucose Oxyhemoglobin Sodium Chloride 88.9 L Carbon Dioxide 39 H BUN 31 H Creatinine 0.5 L Glucose 158 H POC Glucose 137 H Magnesium Ferritin AST 61 H Lactate Dehydrogenase 294 H C-Reactive Protein 3.10 H NT-Pro-B Natriuret Pep Albumin TSH Arterial Blood Glucose Coronavirus (PCR) 04/07/21 04/07/21 04/07/21 07:52 12:21 21:58 WBC Hct MCV MCHC Lymph % (Auto) Lymph # (Auto) Seg Neutrophils % Seg Neuts % (Manual) Lymphocytes % (Manual) Monocytes % (Manual) Basophils % (Manual) Seg Neutrophils # Man Lymphocytes # (Manual) Monocytes # (Manual) Basophils # (Manual) PT D-Dimer ABG pH POC ABG pCO2 POC ABG pO2 ABG pO2 ABG HCO3 ABG Base Excess ABG Oxyhemoglobin ABG Sodium ABG Chloride ABG Glucose Oxyhemoglobin Sodium Chloride Carbon Dioxide BUN Creatinine Glucose POC Glucose 139 H 159 H 180 H Magnesium Ferritin AST Lactate Dehydrogenase C-Reactive Protein NT-Pro-B Natriuret Pep Albumin TSH Arterial Blood Glucose Coronavirus (PCR) 04/08/21 04/08/21 04/08/21 05:25 07:38 10:54 WBC Hct MCV MCHC Lymph % (Auto) Lymph # (Auto) Seg Neutrophils % Seg Neuts % (Manual) Lymphocytes % (Manual) Monocytes % (Manual) Basophils % (Manual) Seg Neutrophils # Man Lymphocytes # (Manual) Monocytes # (Manual) Basophils # (Manual) PT D-Dimer ABG pH POC ABG pCO2 POC ABG pO2 ABG pO2 ABG HCO3 ABG Base Excess ABG Oxyhemoglobin ABG Sodium ABG Chloride ABG Glucose Oxyhemoglobin Sodium Chloride 91.2 L Carbon Dioxide 40 H BUN 37 H Creatinine Glucose 169 H POC Glucose 161 H 189 H Magnesium Ferritin AST 47 H Lactate Dehydrogenase C-Reactive Protein NT-Pro-B Natriuret Pep Albumin 3.7 L TSH Arterial Blood Glucose Coronavirus (PCR) 04/08/21 04/08/21 04/08/21 13:30 16:06 21:06 WBC Hct MCV MCHC Lymph % (Auto) Lymph # (Auto) Seg Neutrophils % Seg Neuts % (Manual) Lymphocytes % (Manual) Monocytes % (Manual) Basophils % (Manual) Seg Neutrophils # Man Lymphocytes # (Manual) Monocytes # (Manual) Basophils # (Manual) PT D-Dimer ABG pH POC ABG pCO2 POC ABG pO2 ABG pO2 ABG HCO3 ABG Base Excess ABG Oxyhemoglobin ABG Sodium ABG Chloride ABG Glucose Oxyhemoglobin Sodium Chloride Carbon Dioxide BUN Creatinine Glucose POC Glucose 178 H 158 H Magnesium Ferritin AST Lactate Dehydrogenase C-Reactive Protein NT-Pro-B Natriuret Pep Albumin TSH 0.031 L Arterial Blood Glucose Coronavirus (PCR) 04/09/21 04/09/21 06:21 07:57 WBC Hct MCV MCHC Lymph % (Auto) Lymph # (Auto) Seg Neutrophils % Seg Neuts % (Manual) Lymphocytes % (Manual) Monocytes % (Manual) Basophils % (Manual) Seg Neutrophils # Man Lymphocytes # (Manual) Monocytes # (Manual) Basophils # (Manual) PT D-Dimer ABG pH POC ABG pCO2 POC ABG pO2 ABG pO2 ABG HCO3 ABG Base Excess ABG Oxyhemoglobin ABG Sodium ABG Chloride ABG Glucose Oxyhemoglobin Sodium Chloride Carbon Dioxide BUN Creatinine Glucose POC Glucose 154 H Magnesium Ferritin AST Lactate Dehydrogenase 248 H C-Reactive Protein NT-Pro-B Natriuret Pep Albumin TSH Arterial Blood Glucose Coronavirus (PCR)
--- NOTE | 2021-04-09 11:58 | Progress Note ---
Assessment and Plan Assessment and plan: Assessment and plan: This is a 50-year-old female with asthma, COPD and former smoker admitted as a COVID-19 pneumonia and with COPD exacerbation. Interval history: This is a 50-year-old female with asthma, COPD and former smoker who presented to emergency department on 04/04 with a 2-day history of progressively worsening shortness of breath via EMS. On EMS arrival patient was found to have SPO2 of 40% on room air and was placed on CPAP, given albuterol, Solu-Medrol, magnesium and IM epinephrine with increase of SPO2 to 70%. Patient states that she is vaccinated with 2 doses of Pfizer vaccine but has not received a booster. Patient did acknowledge contact with patient's that are Covid positive at home. Recommend emergency department patient was found to have acute respiratory failure and placed on BiPAP and repeat ABG showed improvement and CXR showed pulmonary edema. Patient was admitted to the hospitalist service as a COVID-19 PUI with COPD exacerbation. 04/05: Patient remained on BiPAP therapy and was transitioned to OptiFlow this afternoon. She had a Krueger catheter placed yesterday due to retention which wi ll be discontinued today. Patient is positive for COVID-19. Echocardiogram completed and cardiology will pursue a conservative cardiac approach. Will start remdesivir per ID recommendation. 04/06: Krueger catheter replaced overnight d/t retention. Remains on Optiflow. Started remdesivir yesterday per ID recs and received Actemra 04/07: Currently on optiflow 30/50 saturating 96%, will coordinate with RT to attempt to de-escalate o2 req. OK with sats 90% and above. Continue supportive care with steroids, abx, remdesivir, int dose lovenox. 04/08: Remains on high flow 30/50. Continue supportive management for Covid as described below. Cardiology added amlodipine for better blood pressure control. Discussed with RN this morning that we should aggressively wean oxygen as long as saturations greater than 90%. Patient needs aggressive physical therapy and advised to self prone. 04/09: Currently on hiflo 30/45. continue supportive management. Needs aggressive PT. Educated patient on self proning. negative fluid balance last 3 days. Will continue monitoring. Assessment and Plan: Neuro: NAD -Avoid delirium -Reorientation as needed -Aspiration/fall precautions -As needed analgesia Cardio: Possible CHF -Cardiology consulted, appreciate recommendations -IV Lasix -Echocardiogram shows mildly dilated right heart chambers, moderate tricuspid regurgitation, moderate pulmonary hypertension, RVSP 55-60 mmhg, LVEF 55 to 60% -Per cardiology: We will pursue conservative cardiac approach -Blood pressure monitor per protocol -As needed hydralazine -proBNP 1910 Amlodipine 10 mg p.o. daily Respiratory: Acute hypoxic hypercapnic respiratory failure, h/o asthma and COPD, former nicotine abuse -Pulmonology consulted, patient recommendations -BiPAP qhs -IV steroids -IV Lasix -Pulmicort, albuterol, DuoNeb, Singulair -SPO2 monitor per protocol -Supplemental oxygen as needed -Patient weaned to OptiFlow GI: MO -Cardiac diet -24 hours -3320ml -BR senakot -PPI : Urinary retention, hypochloremia, metabolic alkalosis -Krueger replaced on 04/06 d/t retention -reasses and remove as soon as possible -Trend BMP ID: COVID-19 PNA -Infectious disease consulted, appreciate recommendations -Droplet/isolation precautions -COVID-19 PCR positive -Patient states she received 2 doses of Pfizer vaccine but did not receive booster -Solu-Medrol -Ceftriaxone discontinued per ID -Azithromycin () -Trend COVID-19 inflammatory markers -Remdesivir (04/05-04/10) -Anticoagulation per hospital policy -Trend CMP while on remdesivir -s/p Actemra x1 -Self prone as tolerated Endo: Hyperglycemia -SSI -Accu-Cheks every 6 -Avoid hypoglycemia Heme: Leukocytosis (resolved) -Presented with leukocytosis at 11.8 -Trend CBC -Transfuse for hemoglobin less than 7 -Lovenox sub q The high probability of a clinically significant, sudden or life threatening deterioration of the [resp] system(s) required my full and direct attention, intervention and personal management. The aggregate critical care time was [60] minutes. This time is in addition to time spent performing reported procedures but includes the following: [x] Data Review and interpretation [x] Patient assessment and monitoring of vital signs [x] Documentation [x] Medication orders and management Disposition Plan: transfer to floor Total Time Spent with Patient (Minutes): 60 History Interval history: Patient is doing well on encounter today. Shortness of breath has improved. She states that she is well enough to get up and walk around in her room. We discussed self proning and how it would help her recovery from COVID-19. She was agreeable and was anxious to be active. Hospitalist Physical - Physical exam Narrative exam: Physical Exam: VITAL SIGNS: Reviewed. GENERAL: The patient appears normally developed, Vital signs as documented. Hiflow 30L/min and 45% HEAD: No signs of head trauma. EYES: Pupils are equal. Extraocular motions intact. EARS: Hearing grossly intact. MOUTH: Oropharynx is normal. NECK: No adenopathy, no JVD. CHEST: rhonchi bl lung jimenez CARDIAC: Regular rate and rhythm. S1 and S2, without murmurs, gallops, or rubs. VASCULAR: No Edema. Peripheral pulses normal and equal in all extremities. ABDOMEN: Soft, non tender and non distended. No rebound or guarding, and no masses palpated. Bowel Sounds normal. MUSCULOSKELETAL: Good range of motion of all major joints. Extremities without clubbing, cyanosis or edema. NEUROLOGIC EXAM: Alert and oriented x 4. no focal sensory or strength deficits. PSYCHIATRIC: Mood normal. SKIN: detail exam as documented in skin assessment - Constitutional Vitals: Temp Pulse Resp BP Pulse Ox 98.4 F 54 L 18 116/49 98 04/09/21 06:12 04/09/21 06:12 04/09/21 06:12 04/09/21 06:12 04/09/21 08:00 General appearance: Present: no acute distress, obese, other HEART Score - HEART Score Troponin: Troponin T < 0.010 ng/mL (0.00-0.029) 04/04/21 17:53 Results - Labs CBC & Chem 7: 04/07/21 07:00 04/08/21 05:25 Labs: Laboratory Last Values WBC 5.5 K/mm3 (4.5-11.0) 04/07/21 07:00 RBC 4.03 M/mm3 (3.65-5.03) 04/07/21 07:00 Hgb 12.0 gm/dl (10.1-14.3) 04/07/21 07:00 Hct 39.2 % (30.3-42.9) 04/07/21 07:00 MCV 97 fl (79-97) 04/07/21 07:00 MCH 30 pg (28-32) 04/07/21 07:00 MCHC 31 % (30-34) 04/07/21 07:00 RDW 14.0 % (13.2-15.2) 04/07/21 07:00 Plt Count 216 K/mm3 (140-440) 04/07/21 07:00 Lymph % (Auto) 7.5 % (13.4-35.0) L 04/07/21 07:00 [place] % (Auto) 4.2 % (0.0-7.3) 04/07/21 07:00 Eos % (Auto) 0.0 % (0.0-4.3) 04/07/21 07:00 Baso % (Auto) 0.2 % (0.0-1.8) 04/07/21 07:00 Lymph # (Auto) 0.4 K/mm3 (1.2-5.4) L 04/07/21 07:00 [place] # (Auto) 0.2 K/mm3 (0.0-0.8) 04/07/21 07:00 Eos # (Auto) 0.0 K/mm3 (0.0-0.4) 04/07/21 07:00 Baso # (Auto) 0.0 K/mm3 (0.0-0.1) 04/07/21 07:00 Add Manual Diff Complete 04/05/21 05:01 Total Counted 100 04/05/21 05:01 Seg Neutrophils % 88.1 % (40.0-70.0) H 04/07/21 07:00 Seg Neuts % (Manual) 94.0 % (40.0-70.0) H 04/05/21 05:01 Band Neutrophils % 1.0 % 04/05/21 05:01 Lymphocytes % (Manual) 1.0 % (13.4-35.0) L 04/05/21 05:01 Monocytes % (Manual) 4.0 % (0.0-7.3) 04/05/21 05:01 Eosinophils % (Manual) 1.0 % (0.0-4.3) 04/04/21 17:53 Basophils % (Manual) 3.0 % (0.0-1.8) H 04/04/21 17:53 Nucleated RBC % Not Reportable 04/05/21 05:01 Seg Neutrophils # 4.8 K/mm3 (1.8-7.7) 04/07/21 07:00 Seg Neutrophils # Man 8.7 K/mm3 (1.8-7.7) H 04/05/21 05:01 Band Neutrophils # 0.1 K/mm3 04/05/21 05:01 Lymphocytes # (Manual) 0.1 K/mm3 (1.2-5.4) L 04/05/21 05:01 Abs React Lymphs (Man) 0.0 K/mm3 04/05/21 05:01 Monocytes # (Manual) 0.4 K/mm3 (0.0-0.8) 04/05/21 05:01 Eosinophils # (Manual) 0.0 K/mm3 (0.0-0.4) 04/05/21 05:01 Basophils # (Manual) 0.0 K/mm3 (0.0-0.1) 04/05/21 05:01 Metamyelocytes # 0.0 K/mm3 04/05/21 05:01 Myelocytes # 0.0 K/mm3 04/05/21 05:01 Promyelocytes # 0.0 K/mm3 04/05/21 05:01 Blast Cells # 0.0 K/mm3 04/05/21 05:01 WBC Morphology Not Reportable 04/05/21 05:01 Hypersegmented Neuts Not Reportable 04/05/21 05:01 Hyposegmented Neuts Not Reportable 04/05/21 05:01 Hypogranular Neuts Not Reportable 04/05/21 05:01 Smudge Cells Not Reportable 04/05/21 05:01 Toxic Granulation Not Reportable 04/05/21 05:01 Toxic Vacuolation Not Reportable 04/05/21 05:01 Dohle Bodies Not Reportable 04/05/21 05:01 Pelger-Huet Anomaly Not Reportable 04/05/21 05:01 [place] Rods Not Reportable 04/05/21 05:01 Platelet Estimate Consistent w auto 04/05/21 05:01 Clumped Platelets Not Reportable 04/05/21 05:01 Plt Clumps, EDTA Not Reportable 04/05/21 05:01 Large Platelets Not Reportable 04/05/21 05:01 Giant Platelets Not Reportable 04/05/21 05:01 Platelet Satelliting Not Reportable 04/05/21 05:01 Plt Morphology Comment Not Reportable 04/05/21 05:01 RBC Morphology Not Reportable 04/05/21 05:01 Dimorphic RBCs Not Reportable 04/05/21 05:01 Polychromasia Not Reportable 04/05/21 05:01 Hypochromasia Not Reportable 04/05/21 05:01 Poikilocytosis Not Reportable 04/05/21 05:01 Anisocytosis 1+ 04/05/21 05:01 Microcytosis Not Reportable 04/05/21 05:01 Macrocytosis Not Reportable 04/05/21 05:01 Spherocytes Not Reportable 04/05/21 05:01 Pappenheimer Bodies Not Reportable 04/05/21 05:01 Sickle Cells Not Reportable 04/05/21 05:01 Target Cells Not Reportable 04/05/21 05:01 Tear Drop Cells Not Reportable 04/05/21 05:01 Ovalocytes Not Reportable 04/05/21 05:01 Helmet Cells Not Reportable 04/05/21 05:01 [place] Bodies Not Reportable 04/05/21 05:01 [place] Rings Not Reportable 04/05/21 05:01 [place] Cells Not Reportable 04/05/21 05:01 Bite Cells Not Reportable 04/05/21 05:01 Crenated Cell Not Reportable 04/05/21 05:01 Elliptocytes Not Reportable 04/05/21 05:01 Acanthocytes (Spur) Not Reportable 04/05/21 05:01 Rouleaux Not Reportable 04/05/21 05:01 Hemoglobin C Crystals Not Reportable 04/05/21 05:01 Schistocytes Not Reportable 04/05/21 05:01 Malaria parasites Not Reportable 04/05/21 05:01 Jesus Alberto Bodies Not Reportable 04/05/21 05:01 Hem Pathologist Commnt No 04/05/21 05:01 PT 15.0 Sec. (12.2-14.9) H 04/04/21 17:53 INR 1.06 (0.87-1.13) 04/04/21 17:53 D-Dimer 205.77 ng/mlDDU (0-234) 04/09/21 06:21 ABG pH 7.342 (7.320-7.450) 04/05/21 08:00 POC ABG pCO2 76.0 mmHg (32.0-48.0) H 04/05/21 08:00 ABG pCO2 86.8 mm Hg 04/04/21 Unknown POC ABG pO2 66.9 mmHg (83-108) L 04/05/21 08:00 ABG pO2 125.0 mm Hg (80.0-90.0) H 04/04/21 Unknown POC ABG HCO3 40.3 04/05/21 08:00 ABG HCO3 38.7 mmol/L (20.0-26.0) H 04/04/21 Unknown ABG O2 Saturation 93.5 (0-100) 04/05/21 08:00 ABG O2 Content 17.1 (0.0-44) 04/04/21 Unknown POC ABG Base Excess 11.3 04/05/21 08:00 ABG Base Excess 8.6 mmol/L (-2.0-3.0) H 04/04/21 Unknown ABG Hemoglobin 13.4 (12.0-17.5) 04/05/21 08:00 ABG Oxyhemoglobin 92.2 (94-98) L 04/05/21 08:00 ABG Carboxyhemoglobin 2.4 % (0.0-5.0) 04/04/21 Unknown ABG Methemoglobin 0.3 (0.0-1.5) 04/05/21 08:00 ABG Sodium 134.3 mmol/L (136.0-145.0) L 04/05/21 08:00 ABG Potassium 4.5 mmol/L (3.40-4.50) 04/05/21 08:00 ABG Chloride 91.0 mmol/L (98-107) L 04/05/21 08:00 ABG Glucose 156 mg/dL (65-95) H 04/05/21 08:00 Oxyhemoglobin 94.9 % (95.0-99.0) L 04/04/21 Unknown Carboxyhemoglobin 1.1 (0.5-1.5) 04/05/21 08:00 FiO2 80 % 04/04/21 Unknown FiO2 % 50.0 04/05/21 08:00 Sodium 140 mmol/L (137-145) 04/08/21 05:25 Potassium 4.0 mmol/L (3.6-5.0) 04/08/21 05:25 Chloride 91.2 mmol/L (98-107) L 04/08/21 05:25 Carbon Dioxide 40 mmol/L (22-30) H 04/08/21 05:25 Anion Gap 13 mmol/L 04/08/21 05:25 BUN 37 mg/dL (7-17) H 04/08/21 05:25 Creatinine 0.7 mg/dL (0.6-1.2) 04/08/21 05:25 Estimated GFR > 60 ml/min 04/08/21 05:25 BUN/Creatinine Ratio 53 % 04/08/21 05:25 Glucose 169 mg/dL (65-100) H 04/08/21 05:25 POC Glucose 154 mg/dL (70-105) H 04/09/21 07:57 Calcium 9.4 mg/dL (8.4-10.2) 04/08/21 05:25 Magnesium 2.90 mg/dL (1.7-2.3) H 04/04/21 17:53 Ferritin 147.4 ng/mL (10.0-200.0) 04/09/21 06:21 Total Bilirubin 0.80 mg/dL (0.1-1.2) 04/08/21 05:25 AST 47 units/L (5-40) H 04/08/21 05:25 ALT 36 units/L (7-56) 04/08/21 05:25 Alkaline Phosphatase 46 units/L (35-129) 04/08/21 05:25 Lactate Dehydrogenase 248 units/L (91-180) H 04/09/21 06:21 Troponin T < 0.010 ng/mL (0.00-0.029) 04/04/21 17:53 C-Reactive Protein 0.80 mg/dL (0.00-1.30) 04/09/21 06:21 NT-Pro-B Natriuret Pep 1911 pg/mL (0-450) H 04/04/21 17:53 Total Protein 6.5 g/dL (6.3-8.2) 04/08/21 05:25 Albumin 3.7 g/dL (3.9-5) L 04/08/21 05:25 Albumin/Globulin Ratio 1.3 % 04/08/21 05:25 Procalcitonin 0.07 ng/mL (<0.15) 04/04/21 20:30 TSH 0.031 mlU/mL (0.270-4.200) L 04/08/21 13:30 Free T4 1.18 ng/dL (0.76-1.46) 04/08/21 13:30 Arterial Blood Glucose 156 mg/dL (65-95) H 04/05/21 08:00 Arterial Blood Ionized Calcium 4.6 mg/dL (4.6-5.3) 04/05/21 08:00 Urine Color Straw (Yellow) 04/06/21 11:05 Urine Turbidity Clear (Clear) 04/06/21 11:05 Urine pH 5.0 (5.0-7.0) 04/06/21 11:05 Ur Specific [place] 1.006 (1.003-1.030) 04/06/21 11:05 Urine Protein <15 mg/dl mg/dL (Negative) 04/06/21 11:05 Urine Glucose (UA) Neg mg/dL (Negative) 04/06/21 11:05 Urine Ketones Neg mg/dL (Negative) 04/06/21 11:05 Urine Blood Mod (Negative) 04/06/21 11:05 Urine Nitrite Neg (Negative) 04/06/21 11:05 Urine Bilirubin Neg (Negative) 04/06/21 11:05 Urine Urobilinogen < 2.0 mg/dL (<2.0) 04/06/21 11:05 Ur Leukocyte Esterase Neg (Negative) 04/06/21 11:05 Urine WBC (Auto) 1.0 /HPF (0.0-6.0) 04/06/21 11:05 Urine RBC (Auto) 13.0 /HPF (0.0-6.0) 04/06/21 11:05 U Epithel Cells (Auto) 6.0 /HPF (0-13.0) 04/06/21 11:05 Urine Mucus Few /HPF 04/06/21 11:05 Coronavirus (PCR) Positive (Negative) A 04/05/21 Unknown Microbiology: Microbiology 04/06/21 11:05 Urine,Catheterized - Indwelling Catheter Urine Culture - Final NO GROWTH AFTER 48 HOURS Krueger/IV: Voiding Method Indwelling Catheter Active Medications - Current Medications Current Medications: Generic Name Dose Route Start Last Admin Trade Name Freq PRN Reason Stop Dose Admin Acetaminophen 650 mg 04/04/21 21:56 Acetaminophen 325 Mg Tab PO Q4H PRN Pain MILD(1-3)/Fever >100.5/MONAE Albuterol 2.5 mg 04/04/21 21:56 04/08/21 14:50 Albuterol 2.5 Mg/3 Ml Nebu IH 2.5 mg Q4HRT PRN Administration Shortness Of Breath Amlodipine Besylate 10 mg 04/08/21 13:00 04/09/21 09:51 Amlodipine 10 Mg Tab PO 10 mg QDAY JULIO Administration Azithromycin 500 mg 04/06/21 22:00 04/08/21 22:29 Azithromycin 250 Mg Tab PO 04/09/21 22:01 500 mg 2200 JULIO Administration Protocol Dextrose 50 ml 04/05/21 17:22 Dextrose 50% In Water (25gm) 50 Ml Syringe IV Q30MIN PRN Hypoglycemia Protocol Enoxaparin Sodium 40 mg 04/06/21 22:00 04/09/21 09:50 Enoxaparin 40 Mg/0.4 Ml Inj SUB-Q 40 mg BID JULIO Administration Protocol Famotidine 20 mg 04/04/21 22:00 04/09/21 09:51 Famotidine 20 Mg Tab PO 20 mg BID JULIO Administration Furosemide 40 mg 04/05/21 10:00 04/09/21 09:51 Furosemide 40 Mg/4 Ml Inj IV 40 mg QDAY JULIO Administration Hydralazine HCl 10 mg 04/04/21 22:13 04/04/21 22:50 Hydralazine 20 Mg/1 Ml Inj IV 10 mg Q6H PRN Administration Blood Pressure Hydromorphone HCl 0.5 mg 04/04/21 21:56 04/08/21 09:17 Hydromorphone 1 Mg/1 Ml Inj IV 0.5 mg Q3H PRN Administration Pain , Severe (7-10) REMDESIVIR 100 mg/ Sodium 250 mls @ 500 mls/hr 04/06/21 21:00 04/08/21 22:31 Chloride IV 04/09/21 21:29 250 mls/hr Q24HR@2100 JULIO Administration Insulin Human Regular 0 units 04/05/21 22:00 04/09/21 09:51 Insulin Regular, Human 100 Units/1 Ml SUB-Q 1 units ACHS JULIO Administration Protocol Ketorolac Tromethamine 15 mg 04/07/21 12:00 04/08/21 22:49 Ketorolac 30 Mg/1 Ml Inj IV 04/12/21 11:59 15 mg Q8H PRN Administration Pain, moderate (4-6) Methylprednisolone Sodium Succinate 40 mg 04/05/21 00:00 04/09/21 06:26 Methylprednisolone Sod Succinate 40 Mg/1 Ml Inj IV 40 mg Q6HR JULIO Administration Montelukast Sodium 10 mg 04/04/21 22:00 04/08/21 22:35 Montelukast 10 Mg Tab PO 10 mg QHS JULIO Administration Ondansetron HCl 4 mg 04/04/21 21:56 Ondansetron 4 Mg/2 Ml Inj IV Q8H PRN Nausea And Vomiting Senna 17.2 mg 04/06/21 22:00 04/08/21 22:31 Sennosides 8.6 Mg Tab PO 17.2 mg QHS JULIO Administration Sodium Chloride 10 ml 04/04/21 22:00 04/09/21 09:52 Sodium Chloride 0.9% 10 Ml Flush Syringe IV 10 ml BID JULIO Administration Sodium Chloride 10 ml 04/04/21 21:56 Sodium Chloride 0.9% 10 Ml Flush Syringe IV PRN PRN LINE FLUSH Sodium Chloride 50 ml 04/06/21 22:00 04/08/21 22:32 Sodium Chloride 0.9% 50 Ml Ivpb IV 04/09/21 22:01 50 ml Q24H JULIO Administration Tramadol HCl 50 mg 04/08/21 09:40 04/08/21 14:56 Tramadol 50 Mg Tab PO 50 mg Q6H PRN Administration Pain, Moderate (4-6)
--- NOTE | 2021-04-09 12:56 | Progress Note ---
Assessment and Plan - Patient Problems (1) Acute respiratory failure with hypoxia Current Visit: Yes Status: Acute Plan to address problem: Respiratory failure due to acute Covid infection. Continue management as outlined by infectious disease and internal medicine. (2) Sinus bradycardia Current Visit: Yes Status: Acute Plan to address problem: We will avoid AV ander blocking agents. TSH level was markedly reduced at 0.03, suggesting hyperthyroidism. (3) Hypertension Current Visit: Yes Status: Acute Plan to address problem: Continue hypertensive management as directed. Subjective Date of service: 04/09/21 Interval history: The patient is comfortable, no new cardiac complaints. Objective Vital Signs Temp Pulse Pulse Resp Resp BP Pulse Ox 04/09/21 12:13 97.9 F 61 18 95/40 96 04/09/21 08:00 98 04/09/21 06:12 98.4 F 54 L 18 116/49 98 04/09/21 01:00 19 96 04/08/21 23:21 98.2 F 51 L 18 131/65 93 04/08/21 21:00 65 18 04/08/21 19:45 95 04/08/21 14:50 52 L 20 96 - Physical Examination General: No Apparent Distress Neck: Positive: neck supple Cardiac: Positive: Regular Rhythm Lungs: Positive: Decreased Breath Sounds - Labs and Meds Cardiac Enzymes 04/09/21 Range/Units 06:21 Lactate Dehydrogenase 248 H (91-180) units/L
[2021-04-09] MEDS: traMADol 50 MG TAB PO PRN (16:06)
[2021-04-09] MEDS: REMDESIVIR 100 MG in SODIUM CHLORIDE 0.9% 250ML 250 ML IV SCH (21:27)
[2021-04-09] MEDS: MONTELUKAST 10 MG TAB PO SCH (21:27)
[2021-04-09] MEDS: SENNOSIDES 8.6 MG TAB PO SCH (21:27)
[2021-04-09] MEDS: AZITHROMYCIN 250 MG TAB PO SCH (21:28)
[2021-04-09] MEDS: SODIUM CHLORIDE 0.9% 50 ML IVPB IV SCH (21:28)
[2021-04-10] MEDS: methylPREDNISolone Sod Succinate 40 MG/1 ML INJ IV SCH ×4 (00:26→17:18)
[2021-04-10] MEDS: traMADol 50 MG TAB PO PRN ×2 (07:40→17:18)
[2021-04-10] MEDS: FUROSEMIDE 40 MG/4 ML INJ IV SCH (09:16)
[2021-04-10] MEDS: FAMOTIDINE 20 MG TAB PO SCH ×2 (09:16→21:45)
[2021-04-10] MEDS: amLODIPine 10 MG TAB PO SCH (09:16)
[2021-04-10] MEDS: ENOXAPARIN 40 MG/0.4 ML INJ SUB-Q SCH ×2 (09:17→21:45)
[2021-04-10] MEDS: INSULIN REGULAR, HUMAN 100 UNITS/1 ML SUB-Q SCH ×4 (09:17→21:54)
--- NOTE | 2021-04-10 10:07 | Progress Note ---
Assessment and Plan 50 y/o obese female with some form of obstructive lung disease admitted with acute hypoxic hypercapnic respiratory failure. : Will speak with RT about more aggressive weaning. Monitor fluid balance 04/09/21: Prone, wean FiO2, steroids. mOnitor fluid balance. 04/08/21: No new recs for today. Please wean oxygen more aggressively. 04/07/21: Continue daily net negative state. Continue steroids. Prone. Wean FiO2 for sats >88% 04/06/21: Stop Pulmicort. Puffers only. Lasix given pulmonary HTN seen on echo. Continue steroids. Needs to prone. Stable for transfer to COVID floor. 1. Wean Bipap as tolerated 2. Agree with steroids at current dosing 3. Added BID pulmicort 4. Agree with diuresis. 5. Needs echo 6. Will continue to follow. Subjective Date of service: 04/10/21 Interval history: No acute events. Now down to 40%. Still with very good sats. Not sure why weaning is going so slow. Objective Vital Signs - 12hr 04/09/21 04/10/21 22:52 07:25 Temperature 98.7 F Pulse Rate 46 L Respiratory 16 Rate Blood Pressure 114/47 O2 Sat by Pulse 95 97 Oximetry Constitutional: no acute distress, alert ENT: other (full face mask bipap) Neck: supple Effort: normal Ascultation: Bilateral: diminished breath sounds Percussion: Bilateral: not dull Cardiovascular: regular rate and rhythm Gastrointestinal: normoactive bowel sounds Integumentary: normal Extremities: edema CBC and BMP: 04/07/21 07:00 04/08/21 05:25 ABG, PT/INR, D-dimer: ABG ABG pH 7.342 (7.320-7.450) 04/05/21 08:00 POC ABG pCO2 76.0 mmHg (32.0-48.0) H 04/05/21 08:00 ABG pCO2 86.8 mm Hg 04/04/21 Unknown POC ABG pO2 66.9 mmHg (83-108) L 04/05/21 08:00 ABG pO2 125.0 mm Hg (80.0-90.0) H 04/04/21 Unknown POC ABG HCO3 40.3 04/05/21 08:00 ABG O2 Saturation 93.5 (0-100) 04/05/21 08:00 PT/INR, D-dimer PT 15.0 Sec. (12.2-14.9) H 04/04/21 17:53 INR 1.06 (0.87-1.13) 04/04/21 17:53 D-Dimer 205.77 ng/mlDDU (0-234) 04/09/21 06:21 Abnormal lab findings: Abnormal Labs 04/04/21 04/04/21 04/04/21 17:53 17:53 17:53 WBC 11.8 H Hct 45.5 H MCV 99 H MCHC 29 L Lymph % (Auto) Lymph # (Auto) Seg Neutrophils % Seg Neuts % (Manual) Lymphocytes % (Manual) Monocytes % (Manual) 17.0 H Basophils % (Manual) 3.0 H Seg Neutrophils # Man Lymphocytes # (Manual) Monocytes # (Manual) 2.0 H Basophils # (Manual) 0.4 H PT 15.0 H D-Dimer ABG pH POC ABG pCO2 POC ABG pO2 ABG pO2 ABG HCO3 ABG Base Excess ABG Oxyhemoglobin ABG Sodium ABG Chloride ABG Glucose Oxyhemoglobin Sodium 136 L Chloride 87.0 L Carbon Dioxide 31 H BUN 20 H Creatinine Glucose 130 H POC Glucose Magnesium 2.90 H Ferritin AST 43 H Lactate Dehydrogenase C-Reactive Protein NT-Pro-B Natriuret Pep 1911 H Albumin TSH Arterial Blood Glucose Coronavirus (PCR) 04/04/21 04/04/21 04/04/21 18:00 20:30 20:30 WBC Hct MCV MCHC Lymph % (Auto) Lymph # (Auto) Seg Neutrophils % Seg Neuts % (Manual) Lymphocytes % (Manual) Monocytes % (Manual) Basophils % (Manual) Seg Neutrophils # Man Lymphocytes # (Manual) Monocytes # (Manual) Basophils # (Manual) PT D-Dimer 283.80 H ABG pH 7.072 L* POC ABG pCO2 POC ABG pO2 ABG pO2 163.4 H ABG HCO3 41.1 H ABG Base Excess 6.0 H ABG Oxyhemoglobin ABG Sodium ABG Chloride ABG Glucose Oxyhemoglobin 94.8 L Sodium Chloride Carbon Dioxide BUN Creatinine Glucose POC Glucose Magnesium Ferritin 236.2 H AST Lactate Dehydrogenase C-Reactive Protein NT-Pro-B Natriuret Pep Albumin TSH Arterial Blood Glucose Coronavirus (PCR) 04/04/21 04/04/21 04/05/21 20:30 Unknown 05:01 WBC Hct MCV MCHC Lymph % (Auto) Lymph # (Auto) Seg Neutrophils % Seg Neuts % (Manual) 94.0 H Lymphocytes % (Manual) 1.0 L Monocytes % (Manual) Basophils % (Manual) Seg Neutrophils # Man 8.7 H Lymphocytes # (Manual) 0.1 L Monocytes # (Manual) Basophils # (Manual) PT D-Dimer ABG pH 7.267 L POC ABG pCO2 POC ABG pO2 ABG pO2 125.0 H ABG HCO3 38.7 H ABG Base Excess 8.6 H ABG Oxyhemoglobin ABG Sodium ABG Chloride ABG Glucose Oxyhemoglobin 94.9 L Sodium Chloride Carbon Dioxide BUN Creatinine Glucose POC Glucose Magnesium Ferritin AST Lactate Dehydrogenase 434 H C-Reactive Protein 7.90 H NT-Pro-B Natriuret Pep Albumin TSH Arterial Blood Glucose Coronavirus (PCR) 04/05/21 04/05/21 04/05/21 05:01 08:00 18:25 WBC Hct MCV MCHC Lymph % (Auto) Lymph # (Auto) Seg Neutrophils % Seg Neuts % (Manual) Lymphocytes % (Manual) Monocytes % (Manual) Basophils % (Manual) Seg Neutrophils # Man Lymphocytes # (Manual) Monocytes # (Manual) Basophils # (Manual) PT D-Dimer ABG pH POC ABG pCO2 76.0 H POC ABG pO2 66.9 L ABG pO2 ABG HCO3 ABG Base Excess ABG Oxyhemoglobin 92.2 L ABG Sodium 134.3 L ABG Chloride 91.0 L ABG Glucose 156 H Oxyhemoglobin Sodium 136 L Chloride 91.5 L 87.1 L Carbon Dioxide 35 H 36 H BUN 23 H 25 H Creatinine Glucose 178 H 127 H POC Glucose Magnesium Ferritin AST 68 H Lactate Dehydrogenase C-Reactive Protein NT-Pro-B Natriuret Pep Albumin 3.8 L TSH Arterial Blood Glucose 156 H Coronavirus (PCR) 04/05/21 04/05/21 04/06/21 22:33 Unknown 05:36 WBC Hct MCV MCHC Lymph % (Auto) Lymph # (Auto) Seg Neutrophils % Seg Neuts % (Manual) Lymphocytes % (Manual) Monocytes % (Manual) Basophils % (Manual) Seg Neutrophils # Man Lymphocytes # (Manual) Monocytes # (Manual) Basophils # (Manual) PT D-Dimer ABG pH POC ABG pCO2 POC ABG pO2 ABG pO2 ABG HCO3 ABG Base Excess ABG Oxyhemoglobin ABG Sodium ABG Chloride ABG Glucose Oxyhemoglobin Sodium Chloride 88.5 L Carbon Dioxide 37 H BUN 26 H Creatinine Glucose 132 H POC Glucose 154 H Magnesium Ferritin AST 74 H Lactate Dehydrogenase C-Reactive Protein NT-Pro-B Natriuret Pep Albumin TSH Arterial Blood Glucose Coronavirus (PCR) Positive A 04/06/21 04/06/21 04/06/21 07:56 11:52 16:36 WBC Hct MCV MCHC Lymph % (Auto) Lymph # (Auto) Seg Neutrophils % Seg Neuts % (Manual) Lymphocytes % (Manual) Monocytes % (Manual) Basophils % (Manual) Seg Neutrophils # Man Lymphocytes # (Manual) Monocytes # (Manual) Basophils # (Manual) PT D-Dimer ABG pH POC ABG pCO2 POC ABG pO2 ABG pO2 ABG HCO3 ABG Base Excess ABG Oxyhemoglobin ABG Sodium ABG Chloride ABG Glucose Oxyhemoglobin Sodium Chloride Carbon Dioxide BUN Creatinine Glucose POC Glucose 138 H 142 H 152 H Magnesium Ferritin AST Lactate Dehydrogenase C-Reactive Protein NT-Pro-B Natriuret Pep Albumin TSH Arterial Blood Glucose Coronavirus (PCR) 04/06/21 04/07/21 04/07/21 22:51 07:00 07:00 WBC Hct MCV MCHC Lymph % (Auto) 7.5 L Lymph # (Auto) 0.4 L Seg Neutrophils % 88.1 H Seg Neuts % (Manual) Lymphocytes % (Manual) Monocytes % (Manual) Basophils % (Manual) Seg Neutrophils # Man Lymphocytes # (Manual) Monocytes # (Manual) Basophils # (Manual) PT D-Dimer ABG pH POC ABG pCO2 POC ABG pO2 ABG pO2 ABG HCO3 ABG Base Excess ABG Oxyhemoglobin ABG Sodium ABG Chloride ABG Glucose Oxyhemoglobin Sodium Chloride 88.9 L Carbon Dioxide 39 H BUN 31 H Creatinine 0.5 L Glucose 158 H POC Glucose 137 H Magnesium Ferritin AST 61 H Lactate Dehydrogenase 294 H C-Reactive Protein 3.10 H NT-Pro-B Natriuret Pep Albumin TSH Arterial Blood Glucose Coronavirus (PCR) 04/07/21 04/07/21 04/07/21 07:52 12:21 21:58 WBC Hct MCV MCHC Lymph % (Auto) Lymph # (Auto) Seg Neutrophils % Seg Neuts % (Manual) Lymphocytes % (Manual) Monocytes % (Manual) Basophils % (Manual) Seg Neutrophils # Man Lymphocytes # (Manual) Monocytes # (Manual) Basophils # (Manual) PT D-Dimer ABG pH POC ABG pCO2 POC ABG pO2 ABG pO2 ABG HCO3 ABG Base Excess ABG Oxyhemoglobin ABG Sodium ABG Chloride ABG Glucose Oxyhemoglobin Sodium Chloride Carbon Dioxide BUN Creatinine Glucose POC Glucose 139 H 159 H 180 H Magnesium Ferritin AST Lactate Dehydrogenase C-Reactive Protein NT-Pro-B Natriuret Pep Albumin TSH Arterial Blood Glucose Coronavirus (PCR) 04/08/21 04/08/21 04/08/21 05:25 07:38 10:54 WBC Hct MCV MCHC Lymph % (Auto) Lymph # (Auto) Seg Neutrophils % Seg Neuts % (Manual) Lymphocytes % (Manual) Monocytes % (Manual) Basophils % (Manual) Seg Neutrophils # Man Lymphocytes # (Manual) Monocytes # (Manual) Basophils # (Manual) PT D-Dimer ABG pH POC ABG pCO2 POC ABG pO2 ABG pO2 ABG HCO3 ABG Base Excess ABG Oxyhemoglobin ABG Sodium ABG Chloride ABG Glucose Oxyhemoglobin Sodium Chloride 91.2 L Carbon Dioxide 40 H BUN 37 H Creatinine Glucose 169 H POC Glucose 161 H 189 H Magnesium Ferritin AST 47 H Lactate Dehydrogenase C-Reactive Protein NT-Pro-B Natriuret Pep Albumin 3.7 L TSH Arterial Blood Glucose Coronavirus (PCR) 04/08/21 04/08/21 04/08/21 13:30 16:06 21:06 WBC Hct MCV MCHC Lymph % (Auto) Lymph # (Auto) Seg Neutrophils % Seg Neuts % (Manual) Lymphocytes % (Manual) Monocytes % (Manual) Basophils % (Manual) Seg Neutrophils # Man Lymphocytes # (Manual) Monocytes # (Manual) Basophils # (Manual) PT D-Dimer ABG pH POC ABG pCO2 POC ABG pO2 ABG pO2 ABG HCO3 ABG Base Excess ABG Oxyhemoglobin ABG Sodium ABG Chloride ABG Glucose Oxyhemoglobin Sodium Chloride Carbon Dioxide BUN Creatinine Glucose POC Glucose 178 H 158 H Magnesium Ferritin AST Lactate Dehydrogenase C-Reactive Protein NT-Pro-B Natriuret Pep Albumin TSH 0.031 L Arterial Blood Glucose Coronavirus (PCR) 04/09/21 04/09/21 04/09/21 06:21 07:57 11:48 WBC Hct MCV MCHC Lymph % (Auto) Lymph # (Auto) Seg Neutrophils % Seg Neuts % (Manual) Lymphocytes % (Manual) Monocytes % (Manual) Basophils % (Manual) Seg Neutrophils # Man Lymphocytes # (Manual) Monocytes # (Manual) Basophils # (Manual) PT D-Dimer ABG pH POC ABG pCO2 POC ABG pO2 ABG pO2 ABG HCO3 ABG Base Excess ABG Oxyhemoglobin ABG Sodium ABG Chloride ABG Glucose Oxyhemoglobin Sodium Chloride Carbon Dioxide BUN Creatinine Glucose POC Glucose 154 H 226 H Magnesium Ferritin AST Lactate Dehydrogenase 248 H C-Reactive Protein NT-Pro-B Natriuret Pep Albumin TSH Arterial Blood Glucose Coronavirus (PCR) 04/09/21 04/09/21 04/10/21 16:25 22:25 07:43 WBC Hct MCV MCHC Lymph % (Auto) Lymph # (Auto) Seg Neutrophils % Seg Neuts % (Manual) Lymphocytes % (Manual) Monocytes % (Manual) Basophils % (Manual) Seg Neutrophils # Man Lymphocytes # (Manual) Monocytes # (Manual) Basophils # (Manual) PT D-Dimer ABG pH POC ABG pCO2 POC ABG pO2 ABG pO2 ABG HCO3 ABG Base Excess ABG Oxyhemoglobin ABG Sodium ABG Chloride ABG Glucose Oxyhemoglobin Sodium Chloride Carbon Dioxide BUN Creatinine Glucose POC Glucose 157 H 194 H 178 H Magnesium Ferritin AST Lactate Dehydrogenase C-Reactive Protein NT-Pro-B Natriuret Pep Albumin TSH Arterial Blood Glucose Coronavirus (PCR)
--- NOTE | 2021-04-10 11:47 | Progress Note ---
Assessment and Plan Assessment and plan: Assessment and plan: This is a 50-year-old female with asthma, COPD and former smoker admitted as a COVID-19 pneumonia and with COPD exacerbation. Interval history: This is a 50-year-old female with asthma, COPD and former smoker who presented to emergency department on 04/04 with a 2-day history of progressively worsening shortness of breath via EMS. On EMS arrival patient was found to have SPO2 of 40% on room air and was placed on CPAP, given albuterol, Solu-Medrol, magnesium and IM epinephrine with increase of SPO2 to 70%. Patient states that she is vaccinated with 2 doses of Pfizer vaccine but has not received a booster. Patient did acknowledge contact with patient's that are Covid positive at home. Recommend emergency department patient was found to have acute respiratory failure and placed on BiPAP and repeat ABG showed improvement and CXR showed pulmonary edema. Patient was admitted to the hospitalist service as a COVID-19 PUI with COPD exacerbation. 04/05: Patient remained on BiPAP therapy and was transitioned to OptiFlow this afternoon. She had a Krueger catheter placed yesterday due to retention which wi ll be discontinued today. Patient is positive for COVID-19. Echocardiogram completed and cardiology will pursue a conservative cardiac approach. Will start remdesivir per ID recommendation. 04/06: Krueger catheter replaced overnight d/t retention. Remains on Optiflow. Started remdesivir yesterday per ID recs and received Actemra 04/07: Currently on optiflow 30/50 saturating 96%, will coordinate with RT to attempt to de-escalate o2 req. OK with sats 90% and above. Continue supportive care with steroids, abx, remdesivir, int dose lovenox. 04/08: Remains on high flow 30/50. Continue supportive management for Covid as described below. Cardiology added amlodipine for better blood pressure control. Discussed with RN this morning that we should aggressively wean oxygen as long as saturations greater than 90%. Patient needs aggressive physical therapy and advised to self prone. 04/09: Currently on hiflo 30/45. continue supportive management. Needs aggressive PT. Educated patient on self proning. negative fluid balance last 3 days. Will continue monitoring. 04/10: Hi claudia 30/40 this am. Sat 97%. Pulm recs noted and agree. D/w care staff. will do trial of nasal cannula and see how patient tolerates. She will benefit from daily challenges to O2 requirements and aggressive PT. Continue supportive care with COVID 19 standard therapies. Assessment and Plan: Neuro: NAD -Avoid delirium -Reorientation as needed -Aspiration/fall precautions -As needed analgesia Cardio: Possible CHF -Cardiology consulted, appreciate recommendations -IV Lasix -Echocardiogram shows mildly dilated right heart chambers, moderate tricuspid regurgitation, moderate pulmonary hypertension, RVSP 55-60 mmhg, LVEF 55 to 60% -Per cardiology: We will pursue conservative cardiac approach -Blood pressure monitor per protocol -As needed hydralazine -proBNP 1910 Amlodipine 10 mg p.o. daily Respiratory: Acute hypoxic hypercapnic respiratory failure, h/o asthma and COPD, former nicotine abuse -Pulmonology consulted, patient recommendations -BiPAP qhs -IV steroids -IV Lasix -Pulmicort, albuterol, DuoNeb, Singulair -SPO2 monitor per protocol -Supplemental oxygen as needed -Patient weaned to OptiFlow GI: MO -Cardiac diet -24 hours -3320ml -BR senakot -PPI : Urinary retention, hypochloremia, metabolic alkalosis -Krueger replaced on 04/06 d/t retention -reasses and remove as soon as possible -Trend BMP ID: COVID-19 PNA -Infectious disease consulted, appreciate recommendations -Droplet/isolation precautions -COVID-19 PCR positive -Patient states she received 2 doses of Pfizer vaccine but did not receive booster -Solu-Medrol -Ceftriaxone discontinued per ID -Azithromycin () -Trend COVID-19 inflammatory markers -Remdesivir (04/05-04/10) -Anticoagulation per hospital policy -Trend CMP while on remdesivir -s/p Actemra x1 -Self prone as tolerated Endo: Hyperglycemia -SSI -Accu-Cheks every 6 -Avoid hypoglycemia Heme: Leukocytosis (resolved) -Presented with leukocytosis at 11.8 -Trend CBC -Transfuse for hemoglobin less than 7 -Lovenox sub q The high probability of a clinically significant, sudden or life threatening deterioration of the [resp] system(s) required my full and direct attention, intervention and personal management. The aggregate critical care time was [60] minutes. This time is in addition to time spent performing reported procedures but includes the following: [x] Data Review and interpretation [x] Patient assessment and monitoring of vital signs [x] Documentation [x] Medication orders and management Disposition Plan: transfer to floor Total Time Spent with Patient (Minutes): 60 History Interval history: No overnight events. Patient resting comfortably on encounter today no acute complaints. She is able to ambulate to her chair. She states that her breathing function has improved. We discussed further de-escalating her oxygen requirements. We'll need to discuss with RT as well. Hospitalist Physical - Physical exam Narrative exam: Physical Exam: VITAL SIGNS: Reviewed. GENERAL: The patient appears normally developed, Vital signs as documented. Hiflow 30L/min and 45% HEAD: No signs of head trauma. EYES: Pupils are equal. Extraocular motions intact. EARS: Hearing grossly intact. MOUTH: Oropharynx is normal. NECK: No adenopathy, no JVD. CHEST: rhonchi bl lung jimenez CARDIAC: Regular rate and rhythm. S1 and S2, without murmurs, gallops, or rubs. VASCULAR: No Edema. Peripheral pulses normal and equal in all extremities. ABDOMEN: Soft, non tender and non distended. No rebound or guarding, and no masses palpated. Bowel Sounds normal. MUSCULOSKELETAL: Good range of motion of all major joints. Extremities without clubbing, cyanosis or edema. NEUROLOGIC EXAM: Alert and oriented x 4. no focal sensory or strength deficits. PSYCHIATRIC: Mood normal. SKIN: detail exam as documented in skin assessment - Constitutional Vitals: Temp Pulse Resp BP Pulse Ox 98.7 F 46 L 16 114/47 93 04/09/21 22:52 04/09/21 22:52 04/09/21 22:52 04/09/21 22:52 04/10/21 10:00 General appearance: Present: no acute distress, obese, other HEART Score - HEART Score Troponin: Troponin T < 0.010 ng/mL (0.00-0.029) 04/04/21 17:53 Results - Labs CBC & Chem 7: 04/07/21 07:00 04/08/21 05:25 Labs: Laboratory Last Values WBC 5.5 K/mm3 (4.5-11.0) 04/07/21 07:00 RBC 4.03 M/mm3 (3.65-5.03) 04/07/21 07:00 Hgb 12.0 gm/dl (10.1-14.3) 04/07/21 07:00 Hct 39.2 % (30.3-42.9) 04/07/21 07:00 MCV 97 fl (79-97) 04/07/21 07:00 MCH 30 pg (28-32) 04/07/21 07:00 MCHC 31 % (30-34) 04/07/21 07:00 RDW 14.0 % (13.2-15.2) 04/07/21 07:00 Plt Count 216 K/mm3 (140-440) 04/07/21 07:00 Lymph % (Auto) 7.5 % (13.4-35.0) L 04/07/21 07:00 Dane % (Auto) 4.2 % (0.0-7.3) 04/07/21 07:00 Eos % (Auto) 0.0 % (0.0-4.3) 04/07/21 07:00 Baso % (Auto) 0.2 % (0.0-1.8) 04/07/21 07:00 Lymph # (Auto) 0.4 K/mm3 (1.2-5.4) L 04/07/21 07:00 Dane # (Auto) 0.2 K/mm3 (0.0-0.8) 04/07/21 07:00 Eos # (Auto) 0.0 K/mm3 (0.0-0.4) 04/07/21 07:00 Baso # (Auto) 0.0 K/mm3 (0.0-0.1) 04/07/21 07:00 Add Manual Diff Complete 04/05/21 05:01 Total Counted 100 04/05/21 05:01 Seg Neutrophils % 88.1 % (40.0-70.0) H 04/07/21 07:00 Seg Neuts % (Manual) 94.0 % (40.0-70.0) H 04/05/21 05:01 Band Neutrophils % 1.0 % 04/05/21 05:01 Lymphocytes % (Manual) 1.0 % (13.4-35.0) L 04/05/21 05:01 Monocytes % (Manual) 4.0 % (0.0-7.3) 04/05/21 05:01 Eosinophils % (Manual) 1.0 % (0.0-4.3) 04/04/21 17:53 Basophils % (Manual) 3.0 % (0.0-1.8) H 04/04/21 17:53 Nucleated RBC % Not Reportable 04/05/21 05:01 Seg Neutrophils # 4.8 K/mm3 (1.8-7.7) 04/07/21 07:00 Seg Neutrophils # Man 8.7 K/mm3 (1.8-7.7) H 04/05/21 05:01 Band Neutrophils # 0.1 K/mm3 04/05/21 05:01 Lymphocytes # (Manual) 0.1 K/mm3 (1.2-5.4) L 04/05/21 05:01 Abs React Lymphs (Man) 0.0 K/mm3 04/05/21 05:01 Monocytes # (Manual) 0.4 K/mm3 (0.0-0.8) 04/05/21 05:01 Eosinophils # (Manual) 0.0 K/mm3 (0.0-0.4) 04/05/21 05:01 Basophils # (Manual) 0.0 K/mm3 (0.0-0.1) 04/05/21 05:01 Metamyelocytes # 0.0 K/mm3 04/05/21 05:01 Myelocytes # 0.0 K/mm3 04/05/21 05:01 Promyelocytes # 0.0 K/mm3 04/05/21 05:01 Blast Cells # 0.0 K/mm3 04/05/21 05:01 WBC Morphology Not Reportable 04/05/21 05:01 Hypersegmented Neuts Not Reportable 04/05/21 05:01 Hyposegmented Neuts Not Reportable 04/05/21 05:01 Hypogranular Neuts Not Reportable 04/05/21 05:01 Smudge Cells Not Reportable 04/05/21 05:01 Toxic Granulation Not Reportable 04/05/21 05:01 Toxic Vacuolation Not Reportable 04/05/21 05:01 Dohle Bodies Not Reportable 04/05/21 05:01 Pelger-Huet Anomaly Not Reportable 04/05/21 05:01 Bronson Rods Not Reportable 04/05/21 05:01 Platelet Estimate Consistent w auto 04/05/21 05:01 Clumped Platelets Not Reportable 04/05/21 05:01 Plt Clumps, EDTA Not Reportable 04/05/21 05:01 Large Platelets Not Reportable 04/05/21 05:01 Giant Platelets Not Reportable 04/05/21 05:01 Platelet Satelliting Not Reportable 04/05/21 05:01 Plt Morphology Comment Not Reportable 04/05/21 05:01 RBC Morphology Not Reportable 04/05/21 05:01 Dimorphic RBCs Not Reportable 04/05/21 05:01 Polychromasia Not Reportable 04/05/21 05:01 Hypochromasia Not Reportable 04/05/21 05:01 Poikilocytosis Not Reportable 04/05/21 05:01 Anisocytosis 1+ 04/05/21 05:01 Microcytosis Not Reportable 04/05/21 05:01 Macrocytosis Not Reportable 04/05/21 05:01 Spherocytes Not Reportable 04/05/21 05:01 Pappenheimer Bodies Not Reportable 04/05/21 05:01 Sickle Cells Not Reportable 04/05/21 05:01 Target Cells Not Reportable 04/05/21 05:01 Tear Drop Cells Not Reportable 04/05/21 05:01 Ovalocytes Not Reportable 04/05/21 05:01 Helmet Cells Not Reportable 04/05/21 05:01 [place]-Marvel Bodies Not Reportable 04/05/21 05:01 [place] Rings Not Reportable 04/05/21 05:01 Esequiel Cells Not Reportable 04/05/21 05:01 Bite Cells Not Reportable 04/05/21 05:01 Crenated Cell Not Reportable 04/05/21 05:01 Elliptocytes Not Reportable 04/05/21 05:01 Acanthocytes (Spur) Not Reportable 04/05/21 05:01 Rouleaux Not Reportable 04/05/21 05:01 Hemoglobin C Crystals Not Reportable 04/05/21 05:01 Schistocytes Not Reportable 04/05/21 05:01 Malaria parasites Not Reportable 04/05/21 05:01 Jesus Alberto Bodies Not Reportable 04/05/21 05:01 Hem Pathologist Commnt No 04/05/21 05:01 PT 15.0 Sec. (12.2-14.9) H 04/04/21 17:53 INR 1.06 (0.87-1.13) 04/04/21 17:53 D-Dimer 205.77 ng/mlDDU (0-234) 04/09/21 06:21 ABG pH 7.342 (7.320-7.450) 04/05/21 08:00 POC ABG pCO2 76.0 mmHg (32.0-48.0) H 04/05/21 08:00 ABG pCO2 86.8 mm Hg 04/04/21 Unknown POC ABG pO2 66.9 mmHg (83-108) L 04/05/21 08:00 ABG pO2 125.0 mm Hg (80.0-90.0) H 04/04/21 Unknown POC ABG HCO3 40.3 04/05/21 08:00 ABG HCO3 38.7 mmol/L (20.0-26.0) H 04/04/21 Unknown ABG O2 Saturation 93.5 (0-100) 04/05/21 08:00 ABG O2 Content 17.1 (0.0-44) 04/04/21 Unknown POC ABG Base Excess 11.3 04/05/21 08:00 ABG Base Excess 8.6 mmol/L (-2.0-3.0) H 04/04/21 Unknown ABG Hemoglobin 13.4 (12.0-17.5) 04/05/21 08:00 ABG Oxyhemoglobin 92.2 (94-98) L 04/05/21 08:00 ABG Carboxyhemoglobin 2.4 % (0.0-5.0) 04/04/21 Unknown ABG Methemoglobin 0.3 (0.0-1.5) 04/05/21 08:00 ABG Sodium 134.3 mmol/L (136.0-145.0) L 04/05/21 08:00 ABG Potassium 4.5 mmol/L (3.40-4.50) 04/05/21 08:00 ABG Chloride 91.0 mmol/L (98-107) L 04/05/21 08:00 ABG Glucose 156 mg/dL (65-95) H 04/05/21 08:00 Oxyhemoglobin 94.9 % (95.0-99.0) L 04/04/21 Unknown Carboxyhemoglobin 1.1 (0.5-1.5) 04/05/21 08:00 FiO2 80 % 04/04/21 Unknown FiO2 % 50.0 04/05/21 08:00 Sodium 140 mmol/L (137-145) 04/08/21 05:25 Potassium 4.0 mmol/L (3.6-5.0) 04/08/21 05:25 Chloride 91.2 mmol/L (98-107) L 04/08/21 05:25 Carbon Dioxide 40 mmol/L (22-30) H 04/08/21 05:25 Anion Gap 13 mmol/L 04/08/21 05:25 BUN 37 mg/dL (7-17) H 04/08/21 05:25 Creatinine 0.7 mg/dL (0.6-1.2) 04/08/21 05:25 Estimated GFR > 60 ml/min 04/08/21 05:25 BUN/Creatinine Ratio 53 % 04/08/21 05:25 Glucose 169 mg/dL (65-100) H 04/08/21 05:25 POC Glucose 204 mg/dL (70-105) H 04/10/21 10:37 Calcium 9.4 mg/dL (8.4-10.2) 04/08/21 05:25 Magnesium 2.90 mg/dL (1.7-2.3) H 04/04/21 17:53 Ferritin 147.4 ng/mL (10.0-200.0) 04/09/21 06:21 Total Bilirubin 0.80 mg/dL (0.1-1.2) 04/08/21 05:25 AST 47 units/L (5-40) H 04/08/21 05:25 ALT 36 units/L (7-56) 04/08/21 05:25 Alkaline Phosphatase 46 units/L (35-129) 04/08/21 05:25 Lactate Dehydrogenase 248 units/L (91-180) H 04/09/21 06:21 Troponin T < 0.010 ng/mL (0.00-0.029) 04/04/21 17:53 C-Reactive Protein 0.80 mg/dL (0.00-1.30) 04/09/21 06:21 NT-Pro-B Natriuret Pep 1911 pg/mL (0-450) H 04/04/21 17:53 Total Protein 6.5 g/dL (6.3-8.2) 04/08/21 05:25 Albumin 3.7 g/dL (3.9-5) L 04/08/21 05:25 Albumin/Globulin Ratio 1.3 % 04/08/21 05:25 Procalcitonin 0.07 ng/mL (<0.15) 04/04/21 20:30 TSH 0.031 mlU/mL (0.270-4.200) L 04/08/21 13:30 Free T4 1.18 ng/dL (0.76-1.46) 04/08/21 13:30 Arterial Blood Glucose 156 mg/dL (65-95) H 04/05/21 08:00 Arterial Blood Ionized Calcium 4.6 mg/dL (4.6-5.3) 04/05/21 08:00 Urine Color Straw (Yellow) 04/06/21 11:05 Urine Turbidity Clear (Clear) 04/06/21 11:05 Urine pH 5.0 (5.0-7.0) 04/06/21 11:05 Ur Specific [place] 1.006 (1.003-1.030) 04/06/21 11:05 Urine Protein <15 mg/dl mg/dL (Negative) 04/06/21 11:05 Urine Glucose (UA) Neg mg/dL (Negative) 04/06/21 11:05 Urine Ketones Neg mg/dL (Negative) 04/06/21 11:05 Urine Blood Mod (Negative) 04/06/21 11:05 Urine Nitrite Neg (Negative) 04/06/21 11:05 Urine Bilirubin Neg (Negative) 04/06/21 11:05 Urine Urobilinogen < 2.0 mg/dL (<2.0) 04/06/21 11:05 Ur Leukocyte Esterase Neg (Negative) 04/06/21 11:05 Urine WBC (Auto) 1.0 /HPF (0.0-6.0) 04/06/21 11:05 Urine RBC (Auto) 13.0 /HPF (0.0-6.0) 04/06/21 11:05 U Epithel Cells (Auto) 6.0 /HPF (0-13.0) 04/06/21 11:05 Urine Mucus Few /HPF 04/06/21 11:05 Coronavirus (PCR) Positive (Negative) A 04/05/21 Unknown Krueger/IV: Voiding Method Toilet Active Medications - Current Medications Current Medications: Generic Name Dose Route Start Last Admin Trade Name Freq PRN Reason Stop Dose Admin Acetaminophen 650 mg 04/04/21 21:56 Acetaminophen 325 Mg Tab PO Q4H PRN Pain MILD(1-3)/Fever >100.5/MONAE Albuterol 2.5 mg 04/04/21 21:56 04/08/21 14:50 Albuterol 2.5 Mg/3 Ml Nebu IH 2.5 mg Q4HRT PRN Administration Shortness Of Breath Amlodipine Besylate 10 mg 04/08/21 13:00 04/10/21 09:16 Amlodipine 10 Mg Tab PO 10 mg QDAY JULIO Administration Dextrose 50 ml 04/05/21 17:22 Dextrose 50% In Water (25gm) 50 Ml Syringe IV Q30MIN PRN Hypoglycemia Protocol Enoxaparin Sodium 40 mg 04/06/21 22:00 04/10/21 09:17 Enoxaparin 40 Mg/0.4 Ml Inj SUB-Q 40 mg BID JULIO Administration Protocol Famotidine 20 mg 04/04/21 22:00 04/10/21 09:16 Famotidine 20 Mg Tab PO 20 mg BID JULIO Administration Furosemide 40 mg 04/05/21 10:00 04/10/21 09:16 Furosemide 40 Mg/4 Ml Inj IV 40 mg QDAY JULIO Administration Hydralazine HCl 10 mg 04/04/21 22:13 04/04/21 22:50 Hydralazine 20 Mg/1 Ml Inj IV 10 mg Q6H PRN Administration Blood Pressure Hydromorphone HCl 0.5 mg 04/04/21 21:56 04/08/21 09:17 Hydromorphone 1 Mg/1 Ml Inj IV 0.5 mg Q3H PRN Administration Pain , Severe (7-10) Insulin Human Regular 0 units 04/05/21 22:00 04/10/21 11:23 Insulin Regular, Human 100 Units/1 Ml SUB-Q 2 units ACHS JULIO Administration Protocol Ketorolac Tromethamine 15 mg 04/07/21 12:00 04/08/21 22:49 Ketorolac 30 Mg/1 Ml Inj IV 04/12/21 11:59 15 mg Q8H PRN Administration Pain, moderate (4-6) Methylprednisolone Sodium Succinate 40 mg 04/05/21 00:00 04/10/21 11:24 Methylprednisolone Sod Succinate 40 Mg/1 Ml Inj IV 40 mg Q6HR JULIO Administration Montelukast Sodium 10 mg 04/04/21 22:00 04/09/21 21:27 Montelukast 10 Mg Tab PO 10 mg QHS JULIO Administration Ondansetron HCl 4 mg 04/04/21 21:56 Ondansetron 4 Mg/2 Ml Inj IV Q8H PRN Nausea And Vomiting Senna 17.2 mg 04/06/21 22:00 04/09/21 21:27 Sennosides 8.6 Mg Tab PO 17.2 mg QHS JULIO Administration Sodium Chloride 10 ml 04/04/21 22:00 04/10/21 09:17 Sodium Chloride 0.9% 10 Ml Flush Syringe IV 10 ml BID JULIO Administration Sodium Chloride 10 ml 04/04/21 21:56 Sodium Chloride 0.9% 10 Ml Flush Syringe IV PRN PRN LINE FLUSH Tramadol HCl 50 mg 04/08/21 09:40 04/10/21 07:40 Tramadol 50 Mg Tab PO 50 mg Q6H PRN Administration Pain, Moderate (4-6)
--- NOTE | 2021-04-10 19:48 | Progress Note ---
Assessment and Plan - Patient Problems (1) Acute respiratory failure with hypoxia Current Visit: Yes Status: Acute Plan to address problem: Respiratory failure due to acute Covid infection. Continue management as outlined by infectious disease and internal medicine. (2) Sinus bradycardia Current Visit: Yes Status: Acute Plan to address problem: We will avoid AV ander blocking agents. TSH level was markedly reduced at 0.03, suggesting hyperthyroidism. (3) Hypertension Current Visit: Yes Status: Acute Plan to address problem: Continue hypertensive management as directed. Subjective Date of service: 04/10/21 Interval history: The patient is comfortable, no new cardiac complaints. Objective Vital Signs Temp Pulse Resp BP Pulse Ox 04/10/21 14:00 95 04/10/21 12:15 98.8 F 56 L 18 133/56 96 04/10/21 12:00 95 04/10/21 10:00 93 04/10/21 07:25 97 04/09/21 22:52 98.7 F 46 L 16 114/47 95 04/09/21 22:00 46 L 20 94 04/09/21 20:00 95 - Physical Examination Narrative exam: Full physical exam is deferred due to acute Covid infection. General: No Apparent Distress
[2021-04-10] MEDS: MONTELUKAST 10 MG TAB PO SCH (21:45)
[2021-04-10] MEDS: SENNOSIDES 8.6 MG TAB PO SCH (21:45)
[2021-04-11] MEDS: methylPREDNISolone Sod Succinate 40 MG/1 ML INJ IV SCH ×3 (00:20→12:15)
[2021-04-11] MEDS: traMADol 50 MG TAB PO PRN (01:59)
[2021-04-11 06:23] VITALS: BP 122/64
--- NOTE | 2021-04-11 07:21 | Progress Note ---
Assessment and Plan Assessment and plan: Assessment and plan: This is a 50-year-old female with asthma, COPD and former smoker admitted as a COVID-19 pneumonia and with COPD exacerbation. Interval history: This is a 50-year-old female with asthma, COPD and former smoker who presented to emergency department on 04/04 with a 2-day history of progressively worsening shortness of breath via EMS. On EMS arrival patient was found to have SPO2 of 40% on room air and was placed on CPAP, given albuterol, Solu-Medrol, magnesium and IM epinephrine with increase of SPO2 to 70%. Patient states that she is vaccinated with 2 doses of Pfizer vaccine but has not received a booster. Patient did acknowledge contact with patient's that are Covid positive at home. Recommend emergency department patient was found to have acute respiratory failure and placed on BiPAP and repeat ABG showed improvement and CXR showed pulmonary edema. Patient was admitted to the hospitalist service as a COVID-19 PUI with COPD exacerbation. 04/05: Patient remained on BiPAP therapy and was transitioned to OptiFlow this afternoon. She had a Krueger catheter placed yesterday due to retention which wi ll be discontinued today. Patient is positive for COVID-19. Echocardiogram completed and cardiology will pursue a conservative cardiac approach. Will start remdesivir per ID recommendation. 04/06: Krueger catheter replaced overnight d/t retention. Remains on Optiflow. Started remdesivir yesterday per ID recs and received Actemra 04/07: Currently on optiflow 30/50 saturating 96%, will coordinate with RT to attempt to de-escalate o2 req. OK with sats 90% and above. Continue supportive care with steroids, abx, remdesivir, int dose lovenox. 04/08: Remains on high flow 30/50. Continue supportive management for Covid as described below. Cardiology added amlodipine for better blood pressure control. Discussed with RN this morning that we should aggressively wean oxygen as long as saturations greater than 90%. Patient needs aggressive physical therapy and advised to self prone. 04/09: Currently on hiflo 30/45. continue supportive management. Needs aggressive PT. Educated patient on self proning. negative fluid balance last 3 days. Will continue monitoring. 04/10: Hi claudia 30/40 this am. Sat 97%. Pulm recs noted and agree. D/w care staff. will do trial of nasal cannula and see how patient tolerates. She will benefit from daily challenges to O2 requirements and aggressive PT. Continue supportive care with COVID 19 standard therapies. 04/11: Hi claudia 5/100 this AM. Sats of 96%. No needs per PT. Awaiting transition to home O2 requirement of nc 5l/min and can likey be d/c afterwards. Assessment and Plan: Neuro: NAD -Avoid delirium -Reorientation as needed -Aspiration/fall precautions -As needed analgesia Cardio: Possible CHF -Cardiology consulted, appreciate recommendations -IV Lasix -Echocardiogram shows mildly dilated right heart chambers, moderate tricuspid regurgitation, moderate pulmonary hypertension, RVSP 55-60 mmhg, LVEF 55 to 60% -Per cardiology: We will pursue conservative cardiac approach -Blood pressure monitor per protocol -As needed hydralazine -proBNP 1910 Amlodipine 10 mg p.o. daily Respiratory: Acute hypoxic hypercapnic respiratory failure, h/o asthma and COPD, former nicotine abuse -Pulmonology consulted, patient recommendations -BiPAP qhs -IV steroids -IV Lasix -Pulmicort, albuterol, DuoNeb, Singulair -SPO2 monitor per protocol -Supplemental oxygen as needed -Patient weaned to OptiFlow GI: MO -Cardiac diet -24 hours -3320ml -BR senakot -PPI : Urinary retention, hypochloremia, metabolic alkalosis -Krueger replaced on 04/06 d/t retention -reasses and remove as soon as possible -Trend BMP ID: COVID-19 PNA -Infectious disease consulted, appreciate recommendations -Droplet/isolation precautions -COVID-19 PCR positive -Patient states she received 2 doses of Pfizer vaccine but did not receive booster -Solu-Medrol -Ceftriaxone discontinued per ID -Azithromycin () -Trend COVID-19 inflammatory markers -Remdesivir (04/05-04/10) -Anticoagulation per hospital policy -Trend CMP while on remdesivir -s/p Actemra x1 -Self prone as tolerated Endo: Hyperglycemia -SSI -Accu-Cheks every 6 -Avoid hypoglycemia Heme: Leukocytosis (resolved) -Presented with leukocytosis at 11.8 -Trend CBC -Transfuse for hemoglobin less than 7 -Lovenox sub q The high probability of a clinically significant, sudden or life threatening deterioration of the [resp] system(s) required my full and direct attention, intervention and personal management. The aggregate critical care time was [60] minutes. This time is in addition to time spent performing reported procedures but includes the following: [x] Data Review and interpretation [x] Patient assessment and monitoring of vital signs [x] Documentation [x] Medication orders and management Disposition Plan: transfer to floor Total Time Spent with Patient (Minutes): 60 History Interval history: Resting comfortably anxious to go home. Hospitalist Physical - Physical exam Narrative exam: Physical Exam: VITAL SIGNS: Reviewed. GENERAL: The patient appears normally developed, Vital signs as documented. H iflow 5L/min and 100% HEAD: No signs of head trauma. EYES: Pupils are equal. Extraocular motions intact. EARS: Hearing grossly intact. MOUTH: Oropharynx is normal. NECK: No adenopathy, no JVD. CHEST: rhonchi bl lung jimenez CARDIAC: Regular rate and rhythm. S1 and S2, without murmurs, gallops, or rubs. VASCULAR: No Edema. Peripheral pulses normal and equal in all extremities. ABDOMEN: Soft, non tender and non distended. No rebound or guarding, and no masses palpated. Bowel Sounds normal. MUSCULOSKELETAL: Good range of motion of all major joints. Extremities without clubbing, cyanosis or edema. NEUROLOGIC EXAM: Alert and oriented x 4. no focal sensory or strength deficits. PSYCHIATRIC: Mood normal. SKIN: detail exam as documented in skin assessment - Constitutional Vitals: Temp Pulse Resp BP Pulse Ox 98.7 F 61 16 122/64 93 04/11/21 05:14 04/11/21 05:14 04/11/21 05:14 04/11/21 05:14 04/11/21 05:14 General appearance: Present: no acute distress, obese, other HEART Score - HEART Score Troponin: Troponin T < 0.010 ng/mL (0.00-0.029) 04/04/21 17:53 Results - Labs CBC & Chem 7: 04/07/21 07:00 04/08/21 05:25 Labs: Laboratory Last Values WBC 5.5 K/mm3 (4.5-11.0) 04/07/21 07:00 RBC 4.03 M/mm3 (3.65-5.03) 04/07/21 07:00 Hgb 12.0 gm/dl (10.1-14.3) 04/07/21 07:00 Hct 39.2 % (30.3-42.9) 04/07/21 07:00 MCV 97 fl (79-97) 04/07/21 07:00 MCH 30 pg (28-32) 04/07/21 07:00 MCHC 31 % (30-34) 04/07/21 07:00 RDW 14.0 % (13.2-15.2) 04/07/21 07:00 Plt Count 216 K/mm3 (140-440) 04/07/21 07:00 Lymph % (Auto) 7.5 % (13.4-35.0) L 04/07/21 07:00 [place] % (Auto) 4.2 % (0.0-7.3) 04/07/21 07:00 Eos % (Auto) 0.0 % (0.0-4.3) 04/07/21 07:00 Baso % (Auto) 0.2 % (0.0-1.8) 04/07/21 07:00 Lymph # (Auto) 0.4 K/mm3 (1.2-5.4) L 04/07/21 07:00 [place] # (Auto) 0.2 K/mm3 (0.0-0.8) 04/07/21 07:00 Eos # (Auto) 0.0 K/mm3 (0.0-0.4) 04/07/21 07:00 Baso # (Auto) 0.0 K/mm3 (0.0-0.1) 04/07/21 07:00 Add Manual Diff Complete 04/05/21 05:01 Total Counted 100 04/05/21 05:01 Seg Neutrophils % 88.1 % (40.0-70.0) H 04/07/21 07:00 Seg Neuts % (Manual) 94.0 % (40.0-70.0) H 04/05/21 05:01 Band Neutrophils % 1.0 % 04/05/21 05:01 Lymphocytes % (Manual) 1.0 % (13.4-35.0) L 04/05/21 05:01 Monocytes % (Manual) 4.0 % (0.0-7.3) 04/05/21 05:01 Eosinophils % (Manual) 1.0 % (0.0-4.3) 04/04/21 17:53 Basophils % (Manual) 3.0 % (0.0-1.8) H 04/04/21 17:53 Nucleated RBC % Not Reportable 04/05/21 05:01 Seg Neutrophils # 4.8 K/mm3 (1.8-7.7) 04/07/21 07:00 Seg Neutrophils # Man 8.7 K/mm3 (1.8-7.7) H 04/05/21 05:01 Band Neutrophils # 0.1 K/mm3 04/05/21 05:01 Lymphocytes # (Manual) 0.1 K/mm3 (1.2-5.4) L 04/05/21 05:01 Abs React Lymphs (Man) 0.0 K/mm3 04/05/21 05:01 Monocytes # (Manual) 0.4 K/mm3 (0.0-0.8) 04/05/21 05:01 Eosinophils # (Manual) 0.0 K/mm3 (0.0-0.4) 04/05/21 05:01 Basophils # (Manual) 0.0 K/mm3 (0.0-0.1) 04/05/21 05:01 Metamyelocytes # 0.0 K/mm3 04/05/21 05:01 Myelocytes # 0.0 K/mm3 04/05/21 05:01 Promyelocytes # 0.0 K/mm3 04/05/21 05:01 Blast Cells # 0.0 K/mm3 04/05/21 05:01 WBC Morphology Not Reportable 04/05/21 05:01 Hypersegmented Neuts Not Reportable 04/05/21 05:01 Hyposegmented Neuts Not Reportable 04/05/21 05:01 Hypogranular Neuts Not Reportable 04/05/21 05:01 Smudge Cells Not Reportable 04/05/21 05:01 Toxic Granulation Not Reportable 04/05/21 05:01 Toxic Vacuolation Not Reportable 04/05/21 05:01 Dohle Bodies Not Reportable 04/05/21 05:01 Pelger-Huet Anomaly Not Reportable 04/05/21 05:01 Bronson Rods Not Reportable 04/05/21 05:01 Platelet Estimate Consistent w auto 04/05/21 05:01 Clumped Platelets Not Reportable 04/05/21 05:01 Plt Clumps, EDTA Not Reportable 04/05/21 05:01 Large Platelets Not Reportable 04/05/21 05:01 Giant Platelets Not Reportable 04/05/21 05:01 Platelet Satelliting Not Reportable 04/05/21 05:01 Plt Morphology Comment Not Reportable 04/05/21 05:01 RBC Morphology Not Reportable 04/05/21 05:01 Dimorphic RBCs Not Reportable 04/05/21 05:01 Polychromasia Not Reportable 04/05/21 05:01 Hypochromasia Not Reportable 04/05/21 05:01 Poikilocytosis Not Reportable 04/05/21 05:01 Anisocytosis 1+ 04/05/21 05:01 Microcytosis Not Reportable 04/05/21 05:01 Macrocytosis Not Reportable 04/05/21 05:01 Spherocytes Not Reportable 04/05/21 05:01 Pappenheimer Bodies Not Reportable 04/05/21 05:01 Sickle Cells Not Reportable 04/05/21 05:01 Target Cells Not Reportable 04/05/21 05:01 Tear Drop Cells Not Reportable 04/05/21 05:01 Ovalocytes Not Reportable 04/05/21 05:01 Helmet Cells Not Reportable 04/05/21 05:01 [place]-Gordon Bodies Not Reportable 04/05/21 05:01 [place] Rings Not Reportable 04/05/21 05:01 [place] Cells Not Reportable 04/05/21 05:01 Bite Cells Not Reportable 04/05/21 05:01 Crenated Cell Not Reportable 04/05/21 05:01 Elliptocytes Not Reportable 04/05/21 05:01 Acanthocytes (Spur) Not Reportable 04/05/21 05:01 Rouleaux Not Reportable 04/05/21 05:01 Hemoglobin C Crystals Not Reportable 04/05/21 05:01 Schistocytes Not Reportable 04/05/21 05:01 Malaria parasites Not Reportable 04/05/21 05:01 Jesus Alberto Bodies Not Reportable 04/05/21 05:01 Hem Pathologist Commnt No 04/05/21 05:01 PT 15.0 Sec. (12.2-14.9) H 04/04/21 17:53 INR 1.06 (0.87-1.13) 04/04/21 17:53 D-Dimer 205.77 ng/mlDDU (0-234) 04/09/21 06:21 ABG pH 7.342 (7.320-7.450) 04/05/21 08:00 POC ABG pCO2 76.0 mmHg (32.0-48.0) H 04/05/21 08:00 ABG pCO2 86.8 mm Hg 04/04/21 Unknown POC ABG pO2 66.9 mmHg (83-108) L 04/05/21 08:00 ABG pO2 125.0 mm Hg (80.0-90.0) H 04/04/21 Unknown POC ABG HCO3 40.3 04/05/21 08:00 ABG HCO3 38.7 mmol/L (20.0-26.0) H 04/04/21 Unknown ABG O2 Saturation 93.5 (0-100) 04/05/21 08:00 ABG O2 Content 17.1 (0.0-44) 04/04/21 Unknown POC ABG Base Excess 11.3 04/05/21 08:00 ABG Base Excess 8.6 mmol/L (-2.0-3.0) H 04/04/21 Unknown ABG Hemoglobin 13.4 (12.0-17.5) 04/05/21 08:00 ABG Oxyhemoglobin 92.2 (94-98) L 04/05/21 08:00 ABG Carboxyhemoglobin 2.4 % (0.0-5.0) 04/04/21 Unknown ABG Methemoglobin 0.3 (0.0-1.5) 04/05/21 08:00 ABG Sodium 134.3 mmol/L (136.0-145.0) L 04/05/21 08:00 ABG Potassium 4.5 mmol/L (3.40-4.50) 04/05/21 08:00 ABG Chloride 91.0 mmol/L (98-107) L 04/05/21 08:00 ABG Glucose 156 mg/dL (65-95) H 04/05/21 08:00 Oxyhemoglobin 94.9 % (95.0-99.0) L 04/04/21 Unknown Carboxyhemoglobin 1.1 (0.5-1.5) 04/05/21 08:00 FiO2 80 % 04/04/21 Unknown FiO2 % 50.0 04/05/21 08:00 Sodium 140 mmol/L (137-145) 04/08/21 05:25 Potassium 4.0 mmol/L (3.6-5.0) 04/08/21 05:25 Chloride 91.2 mmol/L (98-107) L 04/08/21 05:25 Carbon Dioxide 40 mmol/L (22-30) H 04/08/21 05:25 Anion Gap 13 mmol/L 04/08/21 05:25 BUN 37 mg/dL (7-17) H 04/08/21 05:25 Creatinine 0.7 mg/dL (0.6-1.2) 04/08/21 05:25 Estimated GFR > 60 ml/min 04/08/21 05:25 BUN/Creatinine Ratio 53 % 04/08/21 05:25 Glucose 169 mg/dL (65-100) H 04/08/21 05:25 POC Glucose 190 mg/dL (70-105) H 04/10/21 21:24 Calcium 9.4 mg/dL (8.4-10.2) 04/08/21 05:25 Magnesium 2.90 mg/dL (1.7-2.3) H 04/04/21 17:53 Ferritin 147.4 ng/mL (10.0-200.0) 04/09/21 06:21 Total Bilirubin 0.80 mg/dL (0.1-1.2) 04/08/21 05:25 AST 47 units/L (5-40) H 04/08/21 05:25 ALT 36 units/L (7-56) 04/08/21 05:25 Alkaline Phosphatase 46 units/L (35-129) 04/08/21 05:25 Lactate Dehydrogenase 248 units/L (91-180) H 04/09/21 06:21 Troponin T < 0.010 ng/mL (0.00-0.029) 04/04/21 17:53 C-Reactive Protein 0.80 mg/dL (0.00-1.30) 04/09/21 06:21 NT-Pro-B Natriuret Pep 1911 pg/mL (0-450) H 04/04/21 17:53 Total Protein 6.5 g/dL (6.3-8.2) 04/08/21 05:25 Albumin 3.7 g/dL (3.9-5) L 04/08/21 05:25 Albumin/Globulin Ratio 1.3 % 04/08/21 05:25 Procalcitonin 0.07 ng/mL (<0.15) 04/04/21 20:30 TSH 0.031 mlU/mL (0.270-4.200) L 04/08/21 13:30 Free T4 1.18 ng/dL (0.76-1.46) 04/08/21 13:30 Arterial Blood Glucose 156 mg/dL (65-95) H 04/05/21 08:00 Arterial Blood Ionized Calcium 4.6 mg/dL (4.6-5.3) 04/05/21 08:00 Urine Color Straw (Yellow) 04/06/21 11:05 Urine Turbidity Clear (Clear) 04/06/21 11:05 Urine pH 5.0 (5.0-7.0) 04/06/21 11:05 Ur Specific [place] 1.006 (1.003-1.030) 04/06/21 11:05 Urine Protein <15 mg/dl mg/dL (Negative) 04/06/21 11:05 Urine Glucose (UA) Neg mg/dL (Negative) 04/06/21 11:05 Urine Ketones Neg mg/dL (Negative) 04/06/21 11:05 Urine Blood Mod (Negative) 04/06/21 11:05 Urine Nitrite Neg (Negative) 04/06/21 11:05 Urine Bilirubin Neg (Negative) 04/06/21 11:05 Urine Urobilinogen < 2.0 mg/dL (<2.0) 04/06/21 11:05 Ur Leukocyte Esterase Neg (Negative) 04/06/21 11:05 Urine WBC (Auto) 1.0 /HPF (0.0-6.0) 04/06/21 11:05 Urine RBC (Auto) 13.0 /HPF (0.0-6.0) 04/06/21 11:05 U Epithel Cells (Auto) 6.0 /HPF (0-13.0) 04/06/21 11:05 Urine Mucus Few /HPF 04/06/21 11:05 Coronavirus (PCR) Positive (Negative) A 04/05/21 Unknown Krueger/IV: Voiding Method Toilet Active Medications - Current Medications Current Medications: Generic Name Dose Route Start Last Admin Trade Name Freq PRN Reason Stop Dose Admin Acetaminophen 650 mg 04/04/21 21:56 Acetaminophen 325 Mg Tab PO Q4H PRN Pain MILD(1-3)/Fever >100.5/MONAE Albuterol 2.5 mg 04/04/21 21:56 04/08/21 14:50 Albuterol 2.5 Mg/3 Ml Nebu IH 2.5 mg Q4HRT PRN Administration Shortness Of Breath Amlodipine Besylate 10 mg 04/08/21 13:00 04/10/21 09:16 Amlodipine 10 Mg Tab PO 10 mg QDAY JULIO Administration Dextrose 50 ml 04/05/21 17:22 Dextrose 50% In Water (25gm) 50 Ml Syringe IV Q30MIN PRN Hypoglycemia Protocol Enoxaparin Sodium 40 mg 04/06/21 22:00 04/10/21 21:45 Enoxaparin 40 Mg/0.4 Ml Inj SUB-Q 40 mg BID JULIO Administration Protocol Famotidine 20 mg 04/04/21 22:00 04/10/21 21:45 Famotidine 20 Mg Tab PO 20 mg BID JULIO Administration Furosemide 40 mg 04/05/21 10:00 04/10/21 09:16 Furosemide 40 Mg/4 Ml Inj IV 40 mg QDAY JULIO Administration Hydralazine HCl 10 mg 04/04/21 22:13 04/04/21 22:50 Hydralazine 20 Mg/1 Ml Inj IV 10 mg Q6H PRN Administration Blood Pressure Hydromorphone HCl 0.5 mg 04/04/21 21:56 04/08/21 09:17 Hydromorphone 1 Mg/1 Ml Inj IV 0.5 mg Q3H PRN Administration Pain , Severe (7-10) Insulin Human Regular 0 units 04/05/21 22:00 04/10/21 21:54 Insulin Regular, Human 100 Units/1 Ml SUB-Q 1 units ACHS JULIO Administration Protocol Ketorolac Tromethamine 15 mg 04/07/21 12:00 04/08/21 22:49 Ketorolac 30 Mg/1 Ml Inj IV 04/12/21 11:59 15 mg Q8H PRN Administration Pain, moderate (4-6) Methylprednisolone Sodium Succinate 40 mg 04/05/21 00:00 04/11/21 06:14 Methylprednisolone Sod Succinate 40 Mg/1 Ml Inj IV 40 mg Q6HR JULIO Administration Montelukast Sodium 10 mg 04/04/21 22:00 04/10/21 21:45 Montelukast 10 Mg Tab PO 10 mg QHS JULIO Administration Ondansetron HCl 4 mg 04/04/21 21:56 Ondansetron 4 Mg/2 Ml Inj IV Q8H PRN Nausea And Vomiting Senna 17.2 mg 04/06/21 22:00 04/10/21 21:45 Sennosides 8.6 Mg Tab PO Not Given QHS JULIO Sodium Chloride 10 ml 04/04/21 22:00 04/10/21 21:45 Sodium Chloride 0.9% 10 Ml Flush Syringe IV 10 ml BID JULIO Administration Sodium Chloride 10 ml 04/04/21 21:56 Sodium Chloride 0.9% 10 Ml Flush Syringe IV PRN PRN LINE FLUSH Tramadol HCl 50 mg 04/08/21 09:40 04/11/21 01:59 Tramadol 50 Mg Tab PO 50 mg Q6H PRN Administration Pain, Moderate (4-6)
--- NOTE | 2021-04-11 08:09 | Progress Note ---
Assessment and Plan 50 y/o obese female with some form of obstructive lung disease admitted with acute hypoxic hypercapnic respiratory failure. 04/11/21: Suggest trying salter later today. Continue to wean FiO2 for sats >88%. Continue steroids. Will start to wean once down to nasal cannula. : Will speak with RT about more aggressive weaning. Monitor fluid balance 04/09/21: Prone, wean FiO2, steroids. mOnitor fluid balance. 04/08/21: No new recs for today. Please wean oxygen more aggressively. 04/07/21: Continue daily net negative state. Continue steroids. Prone. Wean FiO2 for sats >88% 04/06/21: Stop Pulmicort. Puffers only. Lasix given pulmonary HTN seen on echo. Continue steroids. Needs to prone. [facility] 1. Wean Bipap as tolerated 2. Agree with steroids at current dosing 3. Added BID pulmicort 4. Agree with diuresis. 5. Needs echo 6. Will continue to follow. Subjective Date of service: 04/11/21 Interval history: Down to 20 and 40 with good sats. Objective Vital Signs - 12hr 04/10/21 04/10/21 04/11/21 21:59 22:00 01:59 Temperature 99.0 F Pulse Rate 50 L 50 L Respiratory 16 20 20 Rate Blood Pressure 122/55 O2 Sat by Pulse 94 94 Oximetry 04/11/21 04/11/21 04/11/21 02:40 02:59 05:14 Temperature 98.7 F Pulse Rate 61 Respiratory 18 16 Rate Blood Pressure 122/64 O2 Sat by Pulse 95 93 Oximetry 04/11/21 07:20 Temperature Pulse Rate Respiratory Rate Blood Pressure O2 Sat by Pulse 95 Oximetry Constitutional: no acute distress, alert ENT: other (full face mask bipap) Neck: supple Effort: normal Ascultation: Bilateral: diminished breath sounds Percussion: Bilateral: not dull Cardiovascular: regular rate and rhythm Gastrointestinal: normoactive bowel sounds Integumentary: normal Extremities: edema CBC and BMP: 04/07/21 07:00 04/08/21 05:25 ABG, PT/INR, D-dimer: ABG ABG pH 7.342 (7.320-7.450) 04/05/21 08:00 POC ABG pCO2 76.0 mmHg (32.0-48.0) H 04/05/21 08:00 ABG pCO2 86.8 mm Hg 04/04/21 Unknown POC ABG pO2 66.9 mmHg (83-108) L 04/05/21 08:00 ABG pO2 125.0 mm Hg (80.0-90.0) H 04/04/21 Unknown POC ABG HCO3 40.3 04/05/21 08:00 ABG O2 Saturation 93.5 (0-100) 04/05/21 08:00 PT/INR, D-dimer PT 15.0 Sec. (12.2-14.9) H 04/04/21 17:53 INR 1.06 (0.87-1.13) 04/04/21 17:53 D-Dimer 205.77 ng/mlDDU (0-234) 04/09/21 06:21 Abnormal lab findings: Abnormal Labs 04/04/21 04/04/21 04/04/21 17:53 17:53 17:53 WBC 11.8 H Hct 45.5 H MCV 99 H MCHC 29 L Lymph % (Auto) Lymph # (Auto) Seg Neutrophils % Seg Neuts % (Manual) Lymphocytes % (Manual) Monocytes % (Manual) 17.0 H Basophils % (Manual) 3.0 H Seg Neutrophils # Man Lymphocytes # (Manual) Monocytes # (Manual) 2.0 H Basophils # (Manual) 0.4 H PT 15.0 H D-Dimer ABG pH POC ABG pCO2 POC ABG pO2 ABG pO2 ABG HCO3 ABG Base Excess ABG Oxyhemoglobin ABG Sodium ABG Chloride ABG Glucose Oxyhemoglobin Sodium 136 L Chloride 87.0 L Carbon Dioxide 31 H BUN 20 H Creatinine Glucose 130 H POC Glucose Magnesium 2.90 H Ferritin AST 43 H Lactate Dehydrogenase C-Reactive Protein NT-Pro-B Natriuret Pep 1911 H Albumin TSH Arterial Blood Glucose Coronavirus (PCR) 04/04/21 04/04/21 04/04/21 18:00 20:30 20:30 WBC Hct MCV MCHC Lymph % (Auto) Lymph # (Auto) Seg Neutrophils % Seg Neuts % (Manual) Lymphocytes % (Manual) Monocytes % (Manual) Basophils % (Manual) Seg Neutrophils # Man Lymphocytes # (Manual) Monocytes # (Manual) Basophils # (Manual) PT D-Dimer 283.80 H ABG pH 7.072 L* POC ABG pCO2 POC ABG pO2 ABG pO2 163.4 H ABG HCO3 41.1 H ABG Base Excess 6.0 H ABG Oxyhemoglobin ABG Sodium ABG Chloride ABG Glucose Oxyhemoglobin 94.8 L Sodium Chloride Carbon Dioxide BUN Creatinine Glucose POC Glucose Magnesium Ferritin 236.2 H AST Lactate Dehydrogenase C-Reactive Protein NT-Pro-B Natriuret Pep Albumin TSH Arterial Blood Glucose Coronavirus (PCR) 04/04/21 04/04/21 04/05/21 20:30 Unknown 05:01 WBC Hct MCV MCHC Lymph % (Auto) Lymph # (Auto) Seg Neutrophils % Seg Neuts % (Manual) 94.0 H Lymphocytes % (Manual) 1.0 L Monocytes % (Manual) Basophils % (Manual) Seg Neutrophils # Man 8.7 H Lymphocytes # (Manual) 0.1 L Monocytes # (Manual) Basophils # (Manual) PT D-Dimer ABG pH 7.267 L POC ABG pCO2 POC ABG pO2 ABG pO2 125.0 H ABG HCO3 38.7 H ABG Base Excess 8.6 H ABG Oxyhemoglobin ABG Sodium ABG Chloride ABG Glucose Oxyhemoglobin 94.9 L Sodium Chloride Carbon Dioxide BUN Creatinine Glucose POC Glucose Magnesium Ferritin AST Lactate Dehydrogenase 434 H C-Reactive Protein 7.90 H NT-Pro-B Natriuret Pep Albumin TSH Arterial Blood Glucose Coronavirus (PCR) 04/05/21 04/05/21 04/05/21 05:01 08:00 18:25 WBC Hct MCV MCHC Lymph % (Auto) Lymph # (Auto) Seg Neutrophils % Seg Neuts % (Manual) Lymphocytes % (Manual) Monocytes % (Manual) Basophils % (Manual) Seg Neutrophils # Man Lymphocytes # (Manual) Monocytes # (Manual) Basophils # (Manual) PT D-Dimer ABG pH POC ABG pCO2 76.0 H POC ABG pO2 66.9 L ABG pO2 ABG HCO3 ABG Base Excess ABG Oxyhemoglobin 92.2 L ABG Sodium 134.3 L ABG Chloride 91.0 L ABG Glucose 156 H Oxyhemoglobin Sodium 136 L Chloride 91.5 L 87.1 L Carbon Dioxide 35 H 36 H BUN 23 H 25 H Creatinine Glucose 178 H 127 H POC Glucose Magnesium Ferritin AST 68 H Lactate Dehydrogenase C-Reactive Protein NT-Pro-B Natriuret Pep Albumin 3.8 L TSH Arterial Blood Glucose 156 H Coronavirus (PCR) 04/05/21 04/05/21 04/06/21 22:33 Unknown 05:36 WBC Hct MCV MCHC Lymph % (Auto) Lymph # (Auto) Seg Neutrophils % Seg Neuts % (Manual) Lymphocytes % (Manual) Monocytes % (Manual) Basophils % (Manual) Seg Neutrophils # Man Lymphocytes # (Manual) Monocytes # (Manual) Basophils # (Manual) PT D-Dimer ABG pH POC ABG pCO2 POC ABG pO2 ABG pO2 ABG HCO3 ABG Base Excess ABG Oxyhemoglobin ABG Sodium ABG Chloride ABG Glucose Oxyhemoglobin Sodium Chloride 88.5 L Carbon Dioxide 37 H BUN 26 H Creatinine Glucose 132 H POC Glucose 154 H Magnesium Ferritin AST 74 H Lactate Dehydrogenase C-Reactive Protein NT-Pro-B Natriuret Pep Albumin TSH Arterial Blood Glucose Coronavirus (PCR) Positive A 04/06/21 04/06/21 04/06/21 07:56 11:52 16:36 WBC Hct MCV MCHC Lymph % (Auto) Lymph # (Auto) Seg Neutrophils % Seg Neuts % (Manual) Lymphocytes % (Manual) Monocytes % (Manual) Basophils % (Manual) Seg Neutrophils # Man Lymphocytes # (Manual) Monocytes # (Manual) Basophils # (Manual) PT D-Dimer ABG pH POC ABG pCO2 POC ABG pO2 ABG pO2 ABG HCO3 ABG Base Excess ABG Oxyhemoglobin ABG Sodium ABG Chloride ABG Glucose Oxyhemoglobin Sodium Chloride Carbon Dioxide BUN Creatinine Glucose POC Glucose 138 H 142 H 152 H Magnesium Ferritin AST Lactate Dehydrogenase C-Reactive Protein NT-Pro-B Natriuret Pep Albumin TSH Arterial Blood Glucose Coronavirus (PCR) 04/06/21 04/07/21 04/07/21 22:51 07:00 07:00 WBC Hct MCV MCHC Lymph % (Auto) 7.5 L Lymph # (Auto) 0.4 L Seg Neutrophils % 88.1 H Seg Neuts % (Manual) Lymphocytes % (Manual) Monocytes % (Manual) Basophils % (Manual) Seg Neutrophils # Man Lymphocytes # (Manual) Monocytes # (Manual) Basophils # (Manual) PT D-Dimer ABG pH POC ABG pCO2 POC ABG pO2 ABG pO2 ABG HCO3 ABG Base Excess ABG Oxyhemoglobin ABG Sodium ABG Chloride ABG Glucose Oxyhemoglobin Sodium Chloride 88.9 L Carbon Dioxide 39 H BUN 31 H Creatinine 0.5 L Glucose 158 H POC Glucose 137 H Magnesium Ferritin AST 61 H Lactate Dehydrogenase 294 H C-Reactive Protein 3.10 H NT-Pro-B Natriuret Pep Albumin TSH Arterial Blood Glucose Coronavirus (PCR) 04/07/21 04/07/21 04/07/21 07:52 12:21 21:58 WBC Hct MCV MCHC Lymph % (Auto) Lymph # (Auto) Seg Neutrophils % Seg Neuts % (Manual) Lymphocytes % (Manual) Monocytes % (Manual) Basophils % (Manual) Seg Neutrophils # Man Lymphocytes # (Manual) Monocytes # (Manual) Basophils # (Manual) PT D-Dimer ABG pH POC ABG pCO2 POC ABG pO2 ABG pO2 ABG HCO3 ABG Base Excess ABG Oxyhemoglobin ABG Sodium ABG Chloride ABG Glucose Oxyhemoglobin Sodium Chloride Carbon Dioxide BUN Creatinine Glucose POC Glucose 139 H 159 H 180 H Magnesium Ferritin AST Lactate Dehydrogenase C-Reactive Protein NT-Pro-B Natriuret Pep Albumin TSH Arterial Blood Glucose Coronavirus (PCR) 04/08/21 04/08/21 04/08/21 05:25 07:38 10:54 WBC Hct MCV MCHC Lymph % (Auto) Lymph # (Auto) Seg Neutrophils % Seg Neuts % (Manual) Lymphocytes % (Manual) Monocytes % (Manual) Basophils % (Manual) Seg Neutrophils # Man Lymphocytes # (Manual) Monocytes # (Manual) Basophils # (Manual) PT D-Dimer ABG pH POC ABG pCO2 POC ABG pO2 ABG pO2 ABG HCO3 ABG Base Excess ABG Oxyhemoglobin ABG Sodium ABG Chloride ABG Glucose Oxyhemoglobin Sodium Chloride 91.2 L Carbon Dioxide 40 H BUN 37 H Creatinine Glucose 169 H POC Glucose 161 H 189 H Magnesium Ferritin AST 47 H Lactate Dehydrogenase C-Reactive Protein NT-Pro-B Natriuret Pep Albumin 3.7 L TSH Arterial Blood Glucose Coronavirus (PCR) 04/08/21 04/08/21 04/08/21 13:30 16:06 21:06 WBC Hct MCV MCHC Lymph % (Auto) Lymph # (Auto) Seg Neutrophils % Seg Neuts % (Manual) Lymphocytes % (Manual) Monocytes % (Manual) Basophils % (Manual) Seg Neutrophils # Man Lymphocytes # (Manual) Monocytes # (Manual) Basophils # (Manual) PT D-Dimer ABG pH POC ABG pCO2 POC ABG pO2 ABG pO2 ABG HCO3 ABG Base Excess ABG Oxyhemoglobin ABG Sodium ABG Chloride ABG Glucose Oxyhemoglobin Sodium Chloride Carbon Dioxide BUN Creatinine Glucose POC Glucose 178 H 158 H Magnesium Ferritin AST Lactate Dehydrogenase C-Reactive Protein NT-Pro-B Natriuret Pep Albumin TSH 0.031 L Arterial Blood Glucose Coronavirus (PCR) 04/09/21 04/09/21 04/09/21 06:21 07:57 11:48 WBC Hct MCV MCHC Lymph % (Auto) Lymph # (Auto) Seg Neutrophils % Seg Neuts % (Manual) Lymphocytes % (Manual) Monocytes % (Manual) Basophils % (Manual) Seg Neutrophils # Man Lymphocytes # (Manual) Monocytes # (Manual) Basophils # (Manual) PT D-Dimer ABG pH POC ABG pCO2 POC ABG pO2 ABG pO2 ABG HCO3 ABG Base Excess ABG Oxyhemoglobin ABG Sodium ABG Chloride ABG Glucose Oxyhemoglobin Sodium Chloride Carbon Dioxide BUN Creatinine Glucose POC Glucose 154 H 226 H Magnesium Ferritin AST Lactate Dehydrogenase 248 H C-Reactive Protein NT-Pro-B Natriuret Pep Albumin TSH Arterial Blood Glucose Coronavirus (PCR) 04/09/21 04/09/21 04/10/21 16:25 22:25 07:43 WBC Hct MCV MCHC Lymph % (Auto) Lymph # (Auto) Seg Neutrophils % Seg Neuts % (Manual) Lymphocytes % (Manual) Monocytes % (Manual) Basophils % (Manual) Seg Neutrophils # Man Lymphocytes # (Manual) Monocytes # (Manual) Basophils # (Manual) PT D-Dimer ABG pH POC ABG pCO2 POC ABG pO2 ABG pO2 ABG HCO3 ABG Base Excess ABG Oxyhemoglobin ABG Sodium ABG Chloride ABG Glucose Oxyhemoglobin Sodium Chloride Carbon Dioxide BUN Creatinine Glucose POC Glucose 157 H 194 H 178 H Magnesium Ferritin AST Lactate Dehydrogenase C-Reactive Protein NT-Pro-B Natriuret Pep Albumin TSH Arterial Blood Glucose Coronavirus (PCR) 04/10/21 04/10/21 04/10/21 10:37 15:43 21:24 WBC Hct MCV MCHC Lymph % (Auto) Lymph # (Auto) Seg Neutrophils % Seg Neuts % (Manual) Lymphocytes % (Manual) Monocytes % (Manual) Basophils % (Manual) Seg Neutrophils # Man Lymphocytes # (Manual) Monocytes # (Manual) Basophils # (Manual) PT D-Dimer ABG pH POC ABG pCO2 POC ABG pO2 ABG pO2 ABG HCO3 ABG Base Excess ABG Oxyhemoglobin ABG Sodium ABG Chloride ABG Glucose Oxyhemoglobin Sodium Chloride Carbon Dioxide BUN Creatinine Glucose POC Glucose 204 H 193 H 190 H Magnesium Ferritin AST Lactate Dehydrogenase C-Reactive Protein NT-Pro-B Natriuret Pep Albumin TSH Arterial Blood Glucose Coronavirus (PCR)
[2021-04-11] MEDS: FAMOTIDINE 20 MG TAB PO SCH (09:31)
[2021-04-11] MEDS: amLODIPine 10 MG TAB PO SCH (09:31)
[2021-04-11] MEDS: INSULIN REGULAR, HUMAN 100 UNITS/1 ML SUB-Q SCH ×2 (09:31→12:13)
[2021-04-11] MEDS: ENOXAPARIN 40 MG/0.4 ML INJ SUB-Q SCH (09:32)
[2021-04-11] MEDS: FUROSEMIDE 40 MG/4 ML INJ IV SCH (09:32)
--- NOTE | 2021-04-11 10:44 | Discharge Summary ---
Providers - Providers Date of Admission: 04/04/21 21:52 Date of discharge: 04/11/21 Attending physician: PATY AMEZQUITA MD 04/04/21 21:56 Consult to Physician [CONS] Routine Comment: Consulting Provider: AVTAR AZAR Physician Instructions: Reason For Exam: Acute respiratory failure Consult to Physician [CONS] Routine Comment: Spoke to Nguyễn Consulting Provider: FRANSISCA IBARRA Physician Instructions: Reason For Exam: chf 04/05/21 09:25 Consult to Physician [CONS] Routine Comment: Spoke to Willie/Alley ram see info. 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 Interval history: This is a 50-year-old female with asthma, COPD and former smoker who presented to emergency department on 04/04 with a 2-day history of progressively worsening shortness of breath via EMS. On EMS arrival patient was found to have SPO2 of 40% on room air and was placed on CPAP, given albuterol, Solu-Medrol, magnesium and IM epinephrine with increase of SPO2 to 70%. Patient states that she is vaccinated with 2 doses of Pfizer vaccine but has not received a booster. Patient did acknowledge contact with patient's that are Covid positive at home. Recommend emergency department patient was found to have acute respiratory failure and placed on BiPAP and repeat ABG showed improvement and CXR showed pulmonary edema. Patient was admitted to the hospitalist service as a COVID-19 PUI with COPD exacerbation. 04/05: Patient remained on BiPAP therapy and was transitioned to OptiFlow this afternoon. She had a Krueger catheter placed yesterday due to retention which will be discontinued today. Patient is positive for COVID-19. Echocardiogram completed and cardiology will pursue a conservative cardiac approach. Will start remdesivir per ID recommendation. 04/06: Krueger catheter replaced overnight d/t retention. Remains on Optiflow. Started remdesivir yesterday per ID recs and received Actemra 04/07: Currently on optiflow 30/50 saturating 96%, will coordinate with RT to attempt to de-escalate o2 req. OK with sats 90% and above. Continue supportive care with steroids, abx, remdesivir, int dose lovenox. 04/08: Remains on high flow 30/50. Continue supportive management for Covid as described below. Cardiology added amlodipine for better blood pressure control. Discussed with RN this morning that we should aggressively wean oxygen as long as saturations greater than 90%. Patient needs aggressive physical therapy and advised to self prone. 04/09: Currently on hiflo 30/45. continue supportive management. Needs aggressive PT. Educated patient on self proning. negative fluid balance last 3 days. Will continue monitoring. 04/10: Hi claudia 30/40 this am. Sat 97%. Pulm recs noted and agree. D/w care staff. will do trial of nasal cannula and see how patient tolerates. She will benefit from daily challenges to O2 requirements and aggressive PT. Continue supportive care with COVID 19 standard therapies. 04/11: Hi claudia 5/100 this AM. Sats of 96%. No needs per PT. Awaiting transition to home O2 requirement of nc 5l/min and can likey be d/c afterwards. Transitioned to 4L NC which is consistent with patient home o2 requirement. Will discharge home with prescriptions for steroid taper, tioptropium inhaler, and amlodipine 10 mg po daily. She was advised to follow up with her primary care doctor. She was also advised to follow up with a lung doctor. Contact information for Dr. Avtar Azar (pulmonology) provided. Assessment and Plan: Neuro: NAD -Avoid delirium -Reorientation as needed -Aspiration/fall precautions -As needed analgesia Cardio: Possible CHF -Cardiology consulted, appreciate recommendations -IV Lasix -Echocardiogram shows mildly dilated right heart chambers, moderate tricuspid regurgitation, moderate pulmonary hypertension, RVSP 55-60 mmhg, LVEF 55 to 60% -Per cardiology: We will pursue conservative cardiac approach -Blood pressure monitor per protocol -As needed hydralazine -proBNP 1910 Amlodipine 10 mg p.o. daily Respiratory: Acute hypoxic hypercapnic respiratory failure, h/o asthma and COPD, former nicotine abuse -Pulmonology consulted, patient recommendations -BiPAP qhs -IV steroids -IV Lasix -Pulmicort, albuterol, DuoNeb, Singulair -SPO2 monitor per protocol -Supplemental oxygen as needed -Patient weaned to OptiFlow GI: MO -Cardiac diet -24 hours -3320ml -BR senakot -PPI : Urinary retention, hypochloremia, metabolic alkalosis -Krueger replaced on 04/06 d/t retention -reasses and remove as soon as possible -Trend BMP ID: COVID-19 PNA -Infectious disease consulted, appreciate recommendations -Droplet/isolation precautions -COVID-19 PCR positive -Patient states she received 2 doses of Pfizer vaccine but did not receive booster -Solu-Medrol -Ceftriaxone discontinued per ID -Azithromycin () -Trend COVID-19 inflammatory markers -Remdesivir (04/05-04/10) -Anticoagulation per hospital policy -Trend CMP while on remdesivir -s/p Actemra x1 -Self prone as tolerated Endo: Hyperglycemia -SSI -Accu-Cheks every 6 -Avoid hypoglycemia Heme: Leukocytosis (resolved) -Presented with leukocytosis at 11.8 -Trend CBC -Transfuse for hemoglobin less than 7 -Lovenox sub q Disposition: 30 STILL A PATIENT Final Discharge Diagnosis (Prints w/discharge instructions): COVID 19 Pneumonia - Discharge Diagnoses (1) Pneumonia due to COVID-19 virus Status: Acute (2) Acute respiratory failure with hypercapnia Status: Acute (3) Acute respiratory failure with hypoxia Status: Acute Core Measure Documentation - Palliative Care Palliative Care/ Comfort Measures: Not Applicable - Core Measures Any of the following diagnoses?: none Exam - Physical Exam Narrative exam: Physical Exam: VITAL SIGNS: Reviewed. GENERAL: The patient appears normally developed, Vital signs as documented. NC 4L/min HEAD: No signs of head trauma. EYES: Pupils are equal. Extraocular motions intact. EARS: Hearing grossly intact. MOUTH: Oropharynx is normal. NECK: No adenopathy, no JVD. CHEST: rhonchi bl lung jimenez CARDIAC: Regular rate and rhythm. S1 and S2, without murmurs, gallops, or rubs. VASCULAR: No Edema. Peripheral pulses normal and equal in all extremities. ABDOMEN: Soft, non tender and non distended. No rebound or guarding, and no masses palpated. Bowel Sounds normal. MUSCULOSKELETAL: Good range of motion of all major joints. Extremities without clubbing, cyanosis or edema. NEUROLOGIC EXAM: Alert and oriented x 4. no focal sensory or strength deficits. PSYCHIATRIC: Mood normal. SKIN: detail exam as documented in skin assessment - Constitutional Vitals: Temp Pulse Resp BP Pulse Ox 98.7 F 62 16 122/64 96 04/11/21 05:14 04/11/21 09:31 04/11/21 05:14 04/11/21 05:14 04/11/21 08:48 Plan Activity: no restrictions Weight Bearing Status: Full Weight Bearing Diet: low cholesterol, low salt, diabetic Follow up with: AVTAR AZAR MD [Staff Physician] - 7 Days PRIMARY CARE, [Primary Care Provider] - 3-5 Days Prescriptions: amLODIPine 10 mg PO QDAY 30 Days #30 tablet dexAMETHasone [Decadron] 4 mg PO DAILY 4 Days #10 tablet Tiotropium [Spiriva] 2 puff INHALATION DAILY 30 Days #1 inh
--- NOTE | 2021-04-11 11:54 | Progress Note ---
Assessment and Plan - Patient Problems (1) Acute respiratory failure with hypoxia Current Visit: Yes Status: Acute Plan to address problem: Respiratory failure due to acute Covid infection. Continue management as outlined by infectious disease and internal medicine. (2) Sinus bradycardia Current Visit: Yes Status: Acute Plan to address problem: Sinus rate has normalized to 61. TSH level was markedly reduced at 0.03, suggesting hyperthyroidism. Defer to internal medicine for further management of hyperthyroidism. (3) Hypertension Current Visit: Yes Status: Acute Plan to address problem: Continue hypertensive management as directed. Blood pressure is well controlled on current regimen. Subjective Date of service: 04/11/21 Interval history: The patient is comfortable in no acute distress, no new cardiac complaints. Objective Vital Signs Temp Pulse Resp BP Pulse Ox 04/11/21 11:18 93 04/11/21 09:31 62 04/11/21 08:48 96 04/11/21 07:20 95 04/11/21 05:14 98.7 F 61 16 122/64 93 04/11/21 02:59 18 04/11/21 02:40 95 04/11/21 01:59 20 04/10/21 22:00 50 L 20 94 04/10/21 21:59 99.0 F 50 L 16 122/55 94 04/10/21 20:00 96 04/10/21 19:02 98.6 F 61 8 L 112/41 93 04/10/21 14:00 95 04/10/21 12:15 98.8 F 56 L 18 133/56 96 04/10/21 12:00 95 - Physical Examination Narrative exam: Full physical exam is deferred due to acute Covid infection. General: No Apparent Distress Neck: Positive: neck supple
[2021-04-11] MEDS ORDERED: FLU VACC QUAD 2021-22(6MOS UP)/PF 60 MCG/0.5 ML SYRINGE IM ONE (12:00)
== END 2021-04-11 14:10 | disposition home or self-care (01) | DRG 871 ==
LOC: ED 17:40 → IMCU 21:52 → CC1 23:55 → 3A 04-06 17:39
PROVIDERS: ADMIT Hospitalist; ATTEND Internal Medicine
PROC: 5A09457 Assistance with Respiratory Ventilation, 24-96 Consecutive Hours, Continuous Positive Airway Pressure (ICD-10-PCS; 2021-04-04)
PROC: XW033E5 Introduction of Remdesivir Anti-infective into Peripheral Vein, Percutaneous Approach, New Technology Group 5 (ICD-10-PCS; principal; 2021-04-05)
PROC: XW033H5 Introduction of Tocilizumab into Peripheral Vein, Percutaneous Approach, New Technology Group 5 (ICD-10-PCS; 2021-04-05)
PROC: 4A033R1 Measurement of Arterial Saturation, Peripheral, Percutaneous Approach (ICD-10-PCS; 2021-04-05)
PROC: 5A0955A Assistance with Respiratory Ventilation, Greater than 96 Consecutive Hours, High Flow/Velocity Cannula (ICD-10-PCS; 2021-04-05)
PROC: 5A09457 Assistance with Respiratory Ventilation, 24-96 Consecutive Hours, Continuous Positive Airway Pressure (ICD-10-PCS; 2021-04-07)
DX: A41.9 Sepsis, unspecified organism (principal); U07.1 COVID-19; J96.02 Acute respiratory failure with hypercapnia; J96.01 Acute respiratory failure with hypoxia; J12.82 Pneumonia due to coronavirus disease 2019; J44.1 Chronic obstructive pulmonary disease with (acute) exacerbation; J44.0 Chronic obstructive pulmonary disease with (acute) lower respiratory infection; Z68.41 Body mass index [BMI] 40.0-44.9, adult; I50.9 Heart failure, unspecified; Z88.8 Allergy status to other drugs, medicaments and biological substances; I11.0 Hypertensive heart disease with heart failure; E66.01 Morbid (severe) obesity due to excess calories; R33.9 Retention of urine, unspecified; R73.9 Hyperglycemia, unspecified; I27.20 Pulmonary hypertension, unspecified; E87.8 Other disorders of electrolyte and fluid balance, not elsewhere classified
CPT/HCPCS: 36415; 36600; 74022; 80048; 80053; 81001; 82728; 82803; 82805; 82962; 83615; 83735; 83880; 84145; 84439; 84443; 84484; 85007; 85025; 85379; 85610; 86140; 87086; 90686; 93005; 93306; 94640; 94760; G0378; Q9967; J0360; J0696; J1170; J1644; J1650; J1815; J1885; J1940; J2920; J7050; U0003